=== PATIENT | female | born 1960 | race African-American/Black ===

== ENCOUNTER 2016-04-15 08:12 | Emergency (ER) | payer OTHER ==
[2016-04-15] MEDS ORDERED: MORPHINE SULFATE 10 MG/ML INJ IM ONE (08:39)
[2016-04-15] MEDS ORDERED: DIAZEPAM INJ 10 MG/2 ML DISP.SYRIN IM ONE (08:40)
--- NOTE | 2016-04-15 08:45 | ER Document Report ---
ED General - General Chief Complaint: Arm Pain Stated Complaint: RIGHT ARM PAIN Mode of Arrival: Ambulatory Information source: Patient Notes: 48-year-old female presents with complaints of right shoulder and neck pain. She notes symptoms of been ongoing for 1 week, worsens when she attempts to move her shoulder. Denies any trauma denies any heavy lifting. Patient notes she has had issues with her neck muscles and arm before TRAVEL OUTSIDE OF THE [place] IN LAST 30 DAYS: No - HPI Onset: Last week Onset/Duration: Persistent Quality of pain: Achy Severity: Moderate Pain Level: 2 Associated symptoms: Body/muscle aches Exacerbated by: Denies Relieved by: Denies Similar symptoms previously: Yes Recently seen / treated by doctor: No - Related Data Allergies/Adverse Reactions: aspirin [Aspirin] Allergy (Severe, Verified 04/15/16 08:13) n and v etodolac [From Lodine] Allergy (Severe, Verified 04/15/16 08:13) Hives oxycodone HCl [From Percocet] Allergy (Severe, Verified 04/15/16 08:13) itching simvastatin [Simvastatin] Allergy (Severe, Verified 04/15/16 08:13) cramping Sulfa (Sulfonamide Antibiotics) Allergy (Severe, Verified 04/15/16 08:13) pain sulfamethoxazole [From Septra] Allergy (Severe, Verified 04/15/16 08:13) pain triamterene [From Maxzide] Allergy (Severe, Verified 04/15/16 08:13) unsure trimethoprim [From Septra] Allergy (Severe, Verified 04/15/16 08:13) pain Past Medical History - Social History Smoking Status: Current Every Day Smoker Cigarette use (# per day): No Chew tobacco use (# tins/day): Yes Smoking Education Provided: No Frequency of alcohol use: Occasional Drug Abuse: None Family History: Reviewed & Not Pertinent Patient has suicidal ideation: No Patient has homicidal ideation: No - Past Medical History Cardiac Medical History: Reports: Hx Coronary Artery Disease, Hx Hypercholesterolemia - hx of, Hx Hypertension - on meds, Hx Peripheral Vascular Disease, Hx Heart Murmur Denies: Hx Atrial Fibrillation, Hx Congestive Heart Failure, Hx Heart Attack , Hx Pulmonary Embolism Pulmonary Medical History: Reports: Hx Asthma - on meds, Hx COPD - on meds, Hx Pneumonia - hx of, Hx Sleep Apnea - cpap Denies: Hx Bronchitis, Hx Respiratory Failure, Hx Tuberculosis Neurological Medical History: Denies: Hx Cerebrovascular Accident, Hx Seizures Endocrine Medical History: Reports: Hx Diabetes Mellitus Type 2, Hx Hyperthyroidism - goiter. Denies: Hx Graves' Disease, Hx Hypothyroidism Renal/ Medical History: Denies: Hx End Stage Renal Disease, Hx Kidney Stones, Hx Ovarian Cysts, Hx Peritoneal Dialysis, Hx Pelvic Inflammatory Disease Malignancy Medical History: Denies: Hx Breast Cancer, Hx Cervical Cancer, Hx Lung Cancer, Hx Ovarian Cancer GI Medical History: Reports: Hx Gastroesophageal Reflux Disease - on meds. Denies: Hx Crohn's Disease, Hx Hiatal Hernia, Hx Irritable Bowel, Hx Liver Failure, Hx Ulcer Musculoskeltal Medical History: Reports Hx Arthritis - on meds, Denies Hx Fibromyalgia, Denies Hx Multiple Sclerosis, Denies Hx Muscular Dystrophy Psychiatric Medical History: Reports: Hx Depression Denies: Hx Bipolar Disorder, Hx Dementia, Hx Post Traumatic Stress Disorder, Hx Schizophrenia Traumatic Medical History: Reports: Hx Fractures Past Surgical History: Reports: Hx Hysterectomy, Hx Thyroid Surgery. Denies: Hx Appendectomy, Hx Bowel Surgery, Hx Section, Hx Cholecystectomy, Hx Colostomy, Hx Coronary Artery Bypass Graft, Hx Gastric Bypass Surgery, Hx Herniorrhaphy, Hx Mastectomy, Hx Pacemaker, Hx Tonsillectomy, Hx Tubal Ligation - Immunizations Hx Diphtheria, Pertussis, Tetanus Vaccination: Yes Hx Pneumococcal Vaccination: 03/28/10 Review of Systems - Review of Systems Notes: REVIEW OF SYSTEMS: CONSTITUTIONAL : Denies fever, chills, or sweats. Denies recent illness. EENT: Denies eye, ear, throat, or mouth pain or symptoms. Denies nasal or sinus congestion or discharge. Denies throat, tongue, or mouth swelling or difficulty swallowing. CARDIOVASCULAR: Denies chest pain. Denies palpitations or racing or irregular heart beat. Denies ankle edema. RESPIRATORY: Denies cough, cold, or chest congestion. Denies shortness of breath, difficulty breathing, or wheezing. GASTROINTESTINAL: Denies abdominal pain or distention. Denies nausea, vomiting , or diarrhea. Denies blood in vomitus, stools, or per rectum. Denies black, tarry stools. Denies constipation. GENITOURINARY: Denies difficulty urinating, painful urination, burning, frequency, blood in urine, or discharge. FEMALE GENITOURINARY: Denies vaginal bleeding, heavy or abnormal periods, irregular periods. Denies vaginal discharge or odor. MUSCULOSKELETAL: Admits to neck pain spasm SKIN: Denies rash, lesions or sores. HEMATOLOGIC : Denies easy bruising or bleeding. LYMPHATIC: Denies swollen, enlarged glands. NEUROLOGICAL: Denies confusion or altered mental status. Denies passing out or loss of consciousness. Denies dizziness or lightheadedness. Denies headache. Denies weakness or paralysis or loss of use of either side. Denies problems with gait or speech. Denies sensory loss, numbness, or tingling. Denies seizures. PSYCHIATRIC: Denies anxiety or stress. Denies depression, suicidal ideation, or homicidal ideation. ALL OTHER SYSTEMS REVIEWED AND NEGATIVE. Dictation was performed using [employer] voice recognition software PHYSICAL EXAMINATION: GENERAL: Well-appearing, well-nourished and in no acute distress. HEAD: Atraumatic, normocephalic. EYES: Pupils equal round and reactive to light, extraocular movements intact, conjunctiva are normal. ENT: Nares patent, oropharynx clear without exudates. Moist mucous membranes. NECK: Normal range of motion, supple without lymphadenopathy LUNGS: Breath sounds clear to auscultation bilaterally and equal. No wheezes rales or rhonchi. HEART: Regular rate and rhythm without murmurs ABDOMEN: Soft, nontender, nondistended abdomen. No guarding, no rebound. No masses appreciated. Female : deferred Musculoskeletal: Limited range of motion of the right arm with tenderness at the trapezius no neurological deficits noted good strength NEUROLOGICAL: Cranial nerves grossly intact. Normal speech, normal gait. Normal sensory, motor exams PSYCH: Normal mood, normal affect. SKIN: Warm, Dry, normal turgor, no rashes or lesions noted. Physical Exam - Vital signs Vitals: Temp Pulse Resp BP Pulse Ox 97.9 F 80 20 138/75 H 98 04/15/16 08:18 04/15/16 08:18 04/15/16 08:18 04/15/16 08:18 04/15/16 08:18 Course - Re-evaluation Re-evalutation: 04/15/16 08:43 Patient will be given pain control, I do not believe any imaging is required as this is not appear to be causing any life-threatening issues. After performing a Medical Screening Examination, I estimate there is LOW risk for INTRACRANIAL HEMORRHAGE, UNSTABLE SPINE FRACTURE, CENTRAL CORD SYNDROME, CAUDA EQUINA, THORACIC AORTIC DISSECTION, PNEUMOTHORAX, PERFORATED BOWEL, RUPTURED ABDOMINAL AORTIC ANEURYSM, ACUTE TENDON RUPTURE, COMPARTMENT SYNDROME, or OPEN FRACTURE, thus I consider the discharge disposition reasonable. Also, there is no evidence or peritonitis, sepsis, or toxicity. The patient and I have discussed the diagnosis and risks, and we agree with discharging home to follow-up with their primary doctor with the understanding that symptoms and presentations can change. We also discussed returning to the Emergency Department immediately if new or worsening symptoms occur. We have discussed the symptoms which are most concerning (e.g., bloody stool, fever, changing or worsening pain, vomiting) that necessitate immediate return. - Vital Signs Vital signs: Temp Pulse Resp BP Pulse Ox 97.9 F 80 20 138/75 H 98 04/15/16 08:18 04/15/16 08:18 04/15/16 08:18 04/15/16 08:18 04/15/16 08:18 Discharge - Discharge Clinical Impression: Trapezius muscle spasm Arm pain Qualifiers: Laterality: right Qualified Code(s): M79.601 - Pain in right arm Condition: Stable Disposition: HOME, SELF-CARE Instructions: Muscle Strain ([facility]) Additional Instructions: Follow up with your physician tomorrow for further care or return to the ED IMMEDIATELY if symptoms worsen or new concerns occur Prescriptions: Diazepam [Valium 5 mg Tablet] 5 mg PO QIDP PRN #15 tablet PRN Reason: Hydrocodone/Acetaminophen [[place] 5-325 mg Tablet] 1 tab PO Q6 #10 tablet
[2016-04-15 09:39] VITALS: BP 136/88
== END 2016-04-15 09:56 | disposition home or self-care (01) ==
LOC: ER 08:12
DX: M62.830 Muscle spasm of back (principal); M79.601 Pain in right arm; F17.210 Nicotine dependence, cigarettes, uncomplicated
CPT/HCPCS: 99283; 96372; J3360; J2270

== ENCOUNTER → 2016-05-10 | Outpatient (CLI) | payer OTHER | LOC: OD 12:18 | DX: M25.531 Pain in right wrist (principal) ==

== ENCOUNTER → 2016-05-20 | Outpatient (CLI) | payer OTHER ==
[2016-05-20 10:23] LABS: ALANINE AMINOTRANSFERASE 23 U/L (9-52); ALBUMIN 3.6 g/dL (3.5-5.0); ALKALINE PHOSPHATASE 95 U/L (38-126); ANION GAP 16 (5-19); ASPARTATE AMINO TRANSFERASE 21 U/L (14-36); BILIRUBIN,TOTAL 0.6 mg/dL (0.2-1.3); BLOOD UREA NITROGEN 27 mg/dL (7-20); CALCIUM 8.8 mg/dL (8.4-10.2); CARBON DIOXIDE 29 mmol/L (22-30); CHLORIDE 98 mmol/L (98-107); CREATININE RESULT 0.93 mg/dL (0.52-1.25); GLUCOSE 249 mg/dL (75-110); MAGNESIUM 1.3 mg/dL (1.6-2.3); PHOSPHORUS 5.6 mg/dL (2.5-4.5); POTASSIUM 4.2 mmol/L (3.6-5.0); SODIUM 143.3 mmol/L (137-145); TOTAL PROTEIN 8.3 g/dL (6.3-8.2)
== END ==
LOC: CCC 08:51
DX: E20.9 Hypoparathyroidism, unspecified (principal); E03.9 Hypothyroidism, unspecified; E11.9 Type 2 diabetes mellitus without complications; I10 Essential (primary) hypertension
CPT/HCPCS: 36415; 80053; 82306; 83036; 83735; 84100; 84443

== ENCOUNTER → 2016-05-20 | Outpatient (CLI) | payer OTHER | LOC: OD 09:24 | DX: M25.511 Pain in right shoulder (principal) ==

== ENCOUNTER → 2016-05-31 | Outpatient (CLI) | payer OTHER ==
[2016-05-31 11:29] LABS: ANION GAP 13 (5-19); BLOOD UREA NITROGEN 25 mg/dL (7-20); CALCIUM 10.6 mg/dL (8.4-10.2); CARBON DIOXIDE 31 mmol/L (22-30); CHLORIDE 100 mmol/L (98-107); CREATININE RESULT 1.03 mg/dL (0.52-1.25); GLUCOSE 91 mg/dL (75-110); MAGNESIUM 1.8 mg/dL (1.6-2.3); PHOSPHORUS 4.3 mg/dL (2.5-4.5); POTASSIUM 4.6 mmol/L (3.6-5.0); SODIUM 144.3 mmol/L (137-145)
[2016-05-31 11:36] LABS: URINE CREATININE 140.2 mg/dL (15-278)
[2016-06-01 14:08] LABS: CALCIUM RANDOM URINE 31.7 mg/dL (Not Estab.)
== END ==
LOC: CCC 09:32
DX: E20.9 Hypoparathyroidism, unspecified (principal)
CPT/HCPCS: 36415; 80048; 82340; 82570; 83735; 84100

== ENCOUNTER → 2016-07-23 | Outpatient (CLI) | payer OTHER ==
[2016-07-23 10:08] LABS: ANION GAP 18 (5-19); BLOOD UREA NITROGEN 25 mg/dL (7-20); CALCIUM 8.5 mg/dL (8.4-10.2); CARBON DIOXIDE 27 mmol/L (22-30); CHLORIDE 103 mmol/L (98-107); CREATININE RESULT 0.89 mg/dL (0.52-1.25); GLUCOSE 199 mg/dL (75-110); PHOSPHORUS 5.2 mg/dL (2.5-4.5); POTASSIUM 4.3 mmol/L (3.6-5.0); SODIUM 147.5 mmol/L (137-145)
[2016-07-23 10:29] LABS: MAGNESIUM 1.3 mg/dL (1.6-2.3)
== END ==
LOC: CCC 08:39
DX: E20.9 Hypoparathyroidism, unspecified (principal)
CPT/HCPCS: 36415; 80048; 83036; 83735; 84100

== ENCOUNTER → 2016-10-07 | Outpatient (CLI) | payer OTHER ==
--- NOTE | 2016-10-07 15:03 | WOMENS IMAGING REPORT ---
EXAM DESCRIPTION: BILAT SCREENING MAMMO W/CAD COMPLETED DATE/TIME: 10/07/2016 1:38 pm REASON FOR STUDY: ROUTINE SCREENING; Z12.31 Z12.31 ENCNTR SCREEN MAMMOGRAM FOR MALIGNANT NEOPLASM O F AYESHA COMPARISON: Annual priors dating back to August 2010. TECHNIQUE: Standard craniocaudal and mediolateral oblique views of each breast recorded using digita l acquisition. LIMITATIONS: None. FINDINGS: No masses, calcifications or architectural distortion. No areas of suspicion. Read with the assistance of CAD. .[facility] - R2 Cenova Version 1.3 .[facility] Imaging - R2 Cenova Version 1.3 .[facility] - R2 Cenova Version 2.4 .[facility] - R2 Cenova Version 2.4 .[facility] - R2 Janitorial Tech Version 9.2 IMPRESSION: NORMAL MAMMOGRAM. BIRADS 1. BREAST DENSITY: a. The breasts are almost entirely fatty. BIRAD: 1 NEGATIVE RECOMMENDATION: ROUTINE SCREENING COMMENT: The patient has been notified of the results by letter per SA requirements. Additional no tification policies are in place for contacting patient with suspicious or incomplete findings. Quality ID #[id number]: The [employer] recommends an annual screening mammogram for women aged 40 years or over. This facility utilizes a reminder system to ensure that all patients receive reminder letters, and/or direct phone calls for appointments. This includes reminders for routine scr eening mammograms, diagnostic mammograms, or other Breast Imaging Interventions when appropriate. Th is patient will be placed in the appropriate reminder system. The [employer] (ACR) has developed recommendations for screening MRI of the breast s in certain patient populations, to be used in conjunction with mammography. Breast MRI surveillanc e may be appropriate for women with more than 20% lifetime risk of developing breast cancer as deter mined by genetic testing, significant family history of the disease, or history of mantle radiation f or Hodgkins Disease. ACR Practice Guidelines 2008. TECHNICAL DOCUMENTATION: FINDING NUMBER: (1) ASSESSMENT: (1) JOB ID: [id number] [employer]- All Rights Reserved
== END ==
LOC: WI 09:53
DX: Z12.31 Encounter for screening mammogram for malignant neoplasm of breast (principal)
CPT/HCPCS: 77067; G0202

== ENCOUNTER → 2016-12-14 | Outpatient (CLI) | payer OTHER ==
[2016-12-14 10:12] LABS: ABSOLUTE EOSINOPHILS # (AUTO) 0.1 10^3/uL (0.0-0.6); ABSOLUTE LYMPHOCYTES (AUTO) 2.7 10^3/uL (0.5-4.7); ABSOLUTE MONOCYTES (AUTO) 0.7 10^3/uL (0.1-1.4); ABSOLUTE NEUT (AUTO) 5.1 10^3/uL (1.7-8.2); BASOPHILS % (AUTO) 0.4 % (0-2); HEMATOCRIT 36.8 % (36.0-47.0); HEMOGLOBIN 11.9 g/dL (12.0-15.5); HGB HCT DIFFERENCE -1.1; LYMPHOCYTES % (AUTO) 31.3 % (13-45); MEAN CORPUSCULAR HEMOGLOBIN 26.3 pg (27.0-33.4); MEAN CORPUSCULAR HGB CONC 32.4 g/dL (32.0-36.0); MEAN CORPUSCULAR VOLUME 81 fl (80-97); MONOCYTES % (AUTO) 7.8 % (3-13); RED BLOOD COUNT 4.54 10^6/uL (3.72-5.28); RED CELL DISTRIBUTION WIDTH 15.8 % (11.5-14.0); SEGMENTED NEUTROPHILS % (AUTO) 59.5 % (42-78); WHITE BLOOD COUNT 8.6 10^3/uL (4.0-10.5)
[2016-12-14 10:41] LABS: ALANINE AMINOTRANSFERASE 22 U/L (9-52); ALKALINE PHOSPHATASE 109 U/L (38-126); ANION GAP 14 (5-19); ASPARTATE AMINO TRANSFERASE 16 U/L (14-36); BILIRUBIN,DIRECT 0.4 mg/dL (0.0-0.4); BILIRUBIN,TOTAL 0.6 mg/dL (0.2-1.3); BLOOD UREA NITROGEN 23 mg/dL (7-20); CALCIUM 8.7 mg/dL (8.4-10.2); CARBON DIOXIDE 32 mmol/L (22-30); CHLORIDE 100 mmol/L (98-107); CREATININE RESULT 0.86 mg/dL (0.52-1.25); GLUCOSE 175 mg/dL (75-110); MAGNESIUM 1.4 mg/dL (1.6-2.3); PHOSPHORUS 5.3 mg/dL (2.5-4.5); POTASSIUM 4.2 mmol/L (3.6-5.0); SODIUM 145.8 mmol/L (137-145); TOTAL PROTEIN 8.1 g/dL (6.3-8.2)
[2016-12-15 07:08] LABS: VITAMIN D 25-HYDROXY 88.4 ng/mL (30.0-100.0)
== END ==
LOC: CCC 08:51
DX: E03.9 Hypothyroidism, unspecified (principal); E20.9 Hypoparathyroidism, unspecified
CPT/HCPCS: 36415; 80053; 82306; 83036; 83735; 83970; 84100; 84443; 85025

== ENCOUNTER → 2017-02-22 | Outpatient (CLI) | payer OTHER ==
[2017-02-22 09:48] LABS: ANION GAP 15 (5-19); BLOOD UREA NITROGEN 22 mg/dL (7-20); CALCIUM 8.1 mg/dL (8.4-10.2); CARBON DIOXIDE 31 mmol/L (22-30); CHLORIDE 100 mmol/L (98-107); CREATININE RESULT 0.79 mg/dL (0.52-1.25); GLUCOSE 167 mg/dL (75-110); PHOSPHORUS 5.6 mg/dL (2.5-4.5); POTASSIUM 4.6 mmol/L (3.6-5.0); SODIUM 145.6 mmol/L (137-145); URIC ACID 8.7 mg/dL (2.5-7.5)
[2017-02-22 10:04] LABS: MAGNESIUM 1.2 mg/dL (1.6-2.3)
== END ==
LOC: CCC 08:46
DX: E21.5 Disorder of parathyroid gland, unspecified (principal); E03.9 Hypothyroidism, unspecified; M10.00 Idiopathic gout, unspecified site; E10.8 Type 1 diabetes mellitus with unspecified complications
CPT/HCPCS: 36415; 80048; 83735; 84100; 84443; 84550

== ENCOUNTER → 2017-03-10 | Outpatient (CLI) | payer OTHER ==
[2017-03-10 09:56] LABS: CALCIUM 8.5 mg/dL (8.4-10.2); MAGNESIUM 1.4 mg/dL (1.6-2.3); PHOSPHORUS 5.4 mg/dL (2.5-4.5)
== END ==
LOC: CCC 08:14
DX: E20.8 Other hypoparathyroidism (principal)
CPT/HCPCS: 36415; 82310; 83735; 84100

== ENCOUNTER → 2017-04-06 | Outpatient (CLI) | payer OTHER ==
[2017-04-07 06:38] LABS: THYROXINE (T4) 6.8 ug/dL (4.5-12.0)
== END ==
LOC: CCC 09:09
DX: E03.9 Hypothyroidism, unspecified (principal); E10.8 Type 1 diabetes mellitus with unspecified complications
CPT/HCPCS: 36415; 83036; 84436; 84443; 84479

== ENCOUNTER → 2017-04-08 | Outpatient (CLI) | payer BC ==
[2017-04-08 11:25] LABS: ANION GAP 16 (5-19); BLOOD UREA NITROGEN 20 mg/dL (7-20); CALCIUM 9.3 mg/dL (8.4-10.2); CARBON DIOXIDE 29 mmol/L (22-30); CHLORIDE 100 mmol/L (98-107); GLUCOSE 149 mg/dL (75-110); POTASSIUM 4.2 mmol/L (3.6-5.0); SODIUM 144.9 mmol/L (137-145); URIC ACID 9.4 mg/dL (2.5-7.5)
== END ==
LOC: OD 10:17
PROVIDERS: ATTEND Internal Medicine
DX: M10.9 Gout, unspecified (principal); I10 Essential (primary) hypertension; E11.9 Type 2 diabetes mellitus without complications; Z79.899 Other long term (current) drug therapy
CPT/HCPCS: 36415; 80048; 84550

== ENCOUNTER → 2017-10-14 | Outpatient (CLI) | payer BC ==
--- NOTE | 2017-10-14 18:05 | WOMENS IMAGING REPORT ---
EXAM DESCRIPTION: BILAT SCREENING MAMMO W/CAD COMPLETED DATE/TIME: 10/14/2017 9:34 am REASON FOR STUDY: SCREENING MAMMO Z12.31 ENCNTR SCREEN MAMMOGRAM FOR MALIGNANT NEOPLASM OF AYESHA COMPARISON: Multiple since 2010 TECHNIQUE: Standard craniocaudal and mediolateral oblique views of each breast recorded using digita l acquisition. LIMITATIONS: None. FINDINGS: No masses, calcifications or architectural distortion. No areas of suspicion. Read with the assistance of CAD. .[facility] - R2 Cenova Version 1.3 .[facility] Imaging - R2 Cenova Version 1.3 .[facility] Imaging - R2 Cenova Version 2.4 .[facility] - R2 Cenova Version 2.4 .[facility] - R2 Transmission Systems Operator Version 9.2 IMPRESSION: NORMAL MAMMOGRAM. BIRADS 1. BREAST DENSITY: b. There are scattered areas of fibroglandular density. BIRAD: 1 NEGATIVE RECOMMENDATION: ROUTINE SCREENING Please continue yearly bilateral screening mammography/tomosynthesis in September 2018 COMMENT: The patient has been notified of the results by letter per SA requirements. Additional no tification policies are in place for contacting patient with suspicious or incomplete findings. Quality ID #225: The [employer] [place] recommends an annual screening mammogram for women aged 40 years or over. This facility utilizes a reminder system to ensure that all patients receive reminder letters, and/or direct phone calls for appointments. This includes reminders for routine scr eening mammograms, diagnostic mammograms, or other Breast Imaging Interventions when appropriate. Th is patient will be placed in the appropriate reminder system. The [employer] [place] [employer] (ACR) has developed recommendations for screening MRI of the breast s in certain patient populations, to be used in conjunction with mammography. Breast MRI surveillanc e may be appropriate for women with more than 20% lifetime risk of developing breast cancer as deter mined by genetic testing, significant family history of the disease, or history of mantle radiation f or Hodgkins Disease. ACR Practice Guidelines 2008. TECHNICAL DOCUMENTATION: FINDING NUMBER: (1) ASSESSMENT: (1) JOB ID: [id number] [employer]- All Rights Reserved Reading location - IP/workstation name: [email or web address]
== END ==
LOC: WI 09:10
PROVIDERS: ATTEND Internal Medicine
DX: Z12.31 Encounter for screening mammogram for malignant neoplasm of breast (principal)
CPT/HCPCS: 77067

== ENCOUNTER → 2017-10-14 | Outpatient (CLI) | payer BC ==
--- NOTE | 2017-10-14 11:23 | RADIOLOGY REPORT (SQ) ---
EXAM DESCRIPTION: RIBS RIGHT W/O PA CHEST; CHEST PA/LATERAL COMPLETED DATE/TIME: 10/14/2017 10:35 am REASON FOR STUDY: RT POST LOWER RIB CAGE PAIN X 3 MONTHS NO TRAUMA; H/O BRONCHIAL ASTHMA J45.909 UN SPECIFIED ASTHMA, UNCOMPLICATED R52 PAIN, UNSPECIFIED COMPARISON: Chest and rib detail films 12/16/2015 TECHNIQUE: Frontal view of the chest and additional views of the right ribs acquired. NUMBER OF VIEWS: Two-view chest Right rib detail four views LIMITATIONS: None. FINDINGS: PA and LATERAL CXR: No pneumothorax. No pleural effusion. No atelectasis or infiltrates. Cardiac silhouette size, camryn unremarkable. Mild thoracic spondylotic change. RIBS: No acute displaced rib fractures. No lytic or blastic lesions. Minimal bony callus along the right anterior 8th rib, question healing subacute rib fracture. OTHER: No other significant finding. IMPRESSION: No acute cardiopulmonary changes Minimal bony callus along the right anterior 8th rib, question healing subacute rib fracture. COMMENT: SITE OF TRAUMA/COMPLAINT MARKED/STAMP COMPLETED: Yes TECHNICAL DOCUMENTATION: JOB ID: [id number] [employer]- All Rights Reserved Reading location - IP/workstation name: [email or web address]
--- NOTE | 2017-10-14 11:23 | RADIOLOGY REPORT (SQ) ---
EXAM DESCRIPTION: RIBS RIGHT W/O PA CHEST; CHEST PA/LATERAL COMPLETED DATE/TIME: 10/14/2017 10:35 am REASON FOR STUDY: RT POST LOWER RIB CAGE PAIN X 3 MONTHS NO TRAUMA; H/O BRONCHIAL ASTHMA J45.909 UN SPECIFIED ASTHMA, UNCOMPLICATED R52 PAIN, UNSPECIFIED COMPARISON: Chest and rib detail films 12/16/2015 TECHNIQUE: Frontal view of the chest and additional views of the right ribs acquired. NUMBER OF VIEWS: Two-view chest Right rib detail four views LIMITATIONS: None. FINDINGS: PA and LATERAL CXR: No pneumothorax. No pleural effusion. No atelectasis or infiltrates. Cardiac silhouette size, camryn unremarkable. Mild thoracic spondylotic change. RIBS: No acute displaced rib fractures. No lytic or blastic lesions. Minimal bony callus along the right anterior 8th rib, question healing subacute rib fracture. OTHER: No other significant finding. IMPRESSION: No acute cardiopulmonary changes Minimal bony callus along the right anterior 8th rib, question healing subacute rib fracture. COMMENT: SITE OF TRAUMA/COMPLAINT MARKED/STAMP COMPLETED: Yes TECHNICAL DOCUMENTATION: JOB ID: [id number] [employer]- All Rights Reserved Reading location - IP/workstation name: [email or web address]
== END ==
LOC: OD 10:09
PROVIDERS: ATTEND Internal Medicine
DX: J45.909 Unspecified asthma, uncomplicated (principal); R07.81 Pleurodynia
CPT/HCPCS: 71046

== ENCOUNTER → 2017-10-20 | Outpatient (CLI) | payer BC ==
[2017-10-20 09:44] LABS: ALBUMIN 3.8 g/dL (3.5-5.0); ANION GAP 13 (5-19); BLOOD UREA NITROGEN 13 mg/dL (7-20); CALCIUM 7.9 mg/dL (8.4-10.2); CARBON DIOXIDE 33 mmol/L (22-30); CHLORIDE 101 mmol/L (98-107); GLUCOSE 180 mg/dL (75-110); PHOSPHORUS 4.9 mg/dL (2.5-4.5); POTASSIUM 4.1 mmol/L (3.6-5.0); SODIUM 147.2 mmol/L (137-145)
== END ==
LOC: OD 08:44
PROVIDERS: ATTEND Internal Medicine Nephrology
DX: E83.51 Hypocalcemia (principal); E83.42 Hypomagnesemia; E83.30 Disorder of phosphorus metabolism, unspecified
CPT/HCPCS: 36415; 80048; 82040; 83735; 84100

== ENCOUNTER → 2017-12-22 | Outpatient (CLI) | payer BC ==
[2017-12-22 09:48] LABS: ANION GAP 10 (5-19); BLOOD UREA NITROGEN 29 mg/dL (7-20); CALCIUM 9.1 mg/dL (8.4-10.2); CARBON DIOXIDE 33 mmol/L (22-30); CHLORIDE 99 mmol/L (98-107); GLUCOSE 165 mg/dL (75-110); PHOSPHORUS 5.6 mg/dL (2.5-4.5); POTASSIUM 4.6 mmol/L (3.6-5.0); SODIUM 141.8 mmol/L (137-145)
== END ==
LOC: OD 08:38
PROVIDERS: ATTEND Internal Medicine Nephrology
DX: E83.51 Hypocalcemia (principal); E83.42 Hypomagnesemia; E83.30 Disorder of phosphorus metabolism, unspecified
CPT/HCPCS: 36415; 80048; 83735; 84100

== ENCOUNTER → 2018-01-16 | Outpatient (CLI) | payer BC, OTHER ==
[2018-01-16 09:29] LABS: ANION GAP 11 (5-19); BLOOD UREA NITROGEN 23 mg/dL (7-20); CALCIUM 7.9 mg/dL (8.4-10.2); CARBON DIOXIDE 30 mmol/L (22-30); CHLORIDE 104 mmol/L (98-107); GLUCOSE 157 mg/dL (75-110); PHOSPHORUS 5.2 mg/dL (2.5-4.5); POTASSIUM 4.2 mmol/L (3.6-5.0)
== END ==
LOC: OD 08:15
PROVIDERS: ATTEND Internal Medicine Nephrology
DX: N17.9 Acute kidney failure, unspecified (principal); E83.51 Hypocalcemia; E83.42 Hypomagnesemia; E83.30 Disorder of phosphorus metabolism, unspecified
CPT/HCPCS: 36415; 80048; 83735; 84100

== ENCOUNTER → 2018-04-10 | Outpatient (CLI) | payer OTHER ==
[2018-04-10 09:38] LABS: ALBUMIN 4.4 g/dL (3.5-5.0); ANION GAP 12 (5-19); BLOOD UREA NITROGEN 20 mg/dL (7-20); CALCIUM 8.3 mg/dL (8.4-10.2); CARBON DIOXIDE 32 mmol/L (22-30); CHLORIDE 99 mmol/L (98-107); GLUCOSE 205 mg/dL (75-110); PHOSPHORUS 5.1 mg/dL (2.5-4.5); POTASSIUM 4.4 mmol/L (3.6-5.0); SODIUM 143.4 mmol/L (137-145)
== END ==
LOC: OD 08:11
PROVIDERS: ATTEND Internal Medicine Nephrology
DX: N18.3 Chronic kidney disease, stage 3 (moderate) (principal); E83.42 Hypomagnesemia; E83.30 Disorder of phosphorus metabolism, unspecified
CPT/HCPCS: 36415; 80048; 82040; 83735; 84100

== ENCOUNTER 2018-07-24 13:11 | Inpatient (IN) | payer OTHER ==
[2018-07-24] MEDS ORDERED: MAGNESIUM SULFATE/D5W 0 GM/0 ML RTUPB IV ONE (13:24)
[2018-07-24] MEDS ORDERED: IPRATROPIUM/ALBUTEROL 0.5-2.5 MG/3 ML AMPUL NEB ONE ×5 (13:24→13:29)
[2018-07-24] MEDS ORDERED: METHYLPREDNISOLONE INJ 125 MG/2 ML SDV IV ONE (13:28)
[2018-07-24 13:48] LABS: VENOUS BLOOD BASE EXCESS 2.5 mmol/L; VENOUS BLOOD HCO3 29.1 mmol/L (20-32); VENOUS BLOOD PH 7.35 (7.30-7.42)
[2018-07-24 13:51] LABS: ABSOLUTE LYMPHOCYTES (AUTO) 1.4 10^3/uL (0.5-4.7); ABSOLUTE MONOCYTES (AUTO) 0.8 10^3/uL (0.1-1.4); ABSOLUTE NEUT (AUTO) 3.4 10^3/uL (1.7-8.2); BASOPHILS % (AUTO) 0.6 % (0-2); EOSINOPHILS % (AUTO) 0.2 % (0-6); HEMATOCRIT 36.7 % (36.0-47.0); HEMOGLOBIN 11.7 g/dL (12.0-15.5); LYMPHOCYTES % (AUTO) 24.4 % (13-45); MEAN CORPUSCULAR HEMOGLOBIN 25.9 pg (27.0-33.4); MEAN CORPUSCULAR HGB CONC 31.9 g/dL (32.0-36.0); MEAN CORPUSCULAR VOLUME 81 fl (80-97); MONOCYTES % (AUTO) 14.2 % (3-13); PLATELET COUNT 232 10^3/uL (150-450); RED CELL DISTRIBUTION WIDTH 15.9 % (11.5-14.0); SEGMENTED NEUTROPHILS % (AUTO) 60.6 % (42-78); TOTAL CELLS COUNTED % (AUTO) 100 %; WHITE BLOOD COUNT 5.6 10^3/uL (4.0-10.5)
[2018-07-24 13:58] LABS: INTERNATIONAL RATION (INR) 0.96; PROTHROMBIN TIME 13.3 SEC (11.4-15.4)
[2018-07-24] MEDS ORDERED: LORAZEPAM INJ 2 MG/1 ML VIAL IV ONE (14:07)
[2018-07-24 14:12] LABS: ALANINE AMINOTRANSFERASE 58 U/L (9-52); ALBUMIN 4.1 g/dL (3.5-5.0); ALKALINE PHOSPHATASE 115 U/L (38-126); ANION GAP 18 (5-19); ASPARTATE AMINO TRANSFERASE 58 U/L (14-36); BILIRUBIN,DIRECT 0.4 mg/dL (0.0-0.4); BILIRUBIN,TOTAL 0.7 mg/dL (0.2-1.3); BLOOD UREA NITROGEN 22 mg/dL (7-20); CALCIUM 7.3 mg/dL (8.4-10.2); CARBON DIOXIDE 27 mmol/L (22-30); CHLORIDE 101 mmol/L (98-107); GLUCOSE 206 mg/dL (75-110); POTASSIUM 3.6 mmol/L (3.6-5.0); TOTAL PROTEIN 8.5 g/dL (6.3-8.2)
--- NOTE | 2018-07-24 14:12 | RADIOLOGY REPORT (SQ) ---
EXAM DESCRIPTION: CHEST SINGLE VIEW COMPLETED DATE/TIME: 07/24/2018 1:49 pm REASON FOR STUDY: cough, wheeze, SOB COMPARISON: 01/26/2016 EXAM PARAMETERS: NUMBER OF VIEWS: One view. TECHNIQUE: Single frontal radiographic view of the chest acquired. RADIATION DOSE: NA LIMITATIONS: None. FINDINGS: LUNGS AND PLEURA: No opacities, masses or pneumothorax. No pleural effusion. MEDIASTINUM AND HILAR STRUCTURES: No masses. Contour normal. HEART AND VASCULAR STRUCTURES: Heart size is borderline. No pulmonary edema. BONES: No acute findings. HARDWARE: None in the chest. OTHER: No other significant finding. IMPRESSION: Borderline cardiomegaly without pulmonary edema. TECHNICAL DOCUMENTATION: JOB ID: [id number] [employer]- All Rights Reserved Reading location - IP/workstation name: [email or web address]
--- NOTE | 2018-07-24 15:02 | ER Document Report ---
Entered by RAKEL AMEZQUITA SCRIBE 07/24/18 1417 Acting as scribe for:NIKHIL OH DO ED General - General Chief Complaint: Shortness Of Breath Stated Complaint: DIFFICULTY BREATHING Time Seen by Provider: 07/24/18 13:28 Primary Care Provider: BISHOP WILEY MD [Primary Care Provider] - Follow up as needed Mode of Arrival: Ambulatory Information source: Patient Notes: Patient is a 58 year old female with asthma, CAD, hypertension, COPD presents to the emergency department via EMS complaining of shortness of breath onset 1 week ago. Patient states she has had increasing shortness of breath that significantly worsened today. She also complains of a productive cough with white sputum, subjective fevers and anterior chest pain underneath her breasts bilaterally. Patient states she used to be on oxygen 3 years ago and was recently on CPAP. Patient states she has chronic pain which she occasionally smokes marijuana for. TRAVEL OUTSIDE OF THE [place] IN LAST 30 DAYS: No - Related Data Allergies/Adverse Reactions: aspirin [Aspirin] Allergy (Severe, Verified 07/24/18 13:16) n and v etodolac [From Lodine] Allergy (Severe, Verified 07/24/18 13:16) Hives oxycodone HCl [From Percocet] Allergy (Severe, Verified 07/24/18 13:16) itching simvastatin [Simvastatin] Allergy (Severe, Verified 07/24/18 13:16) cramping Sulfa (Sulfonamide Antibiotics) Allergy (Severe, Verified 07/24/18 13:16) pain sulfamethoxazole [From Septra] Allergy (Severe, Verified 07/24/18 13:16) pain triamterene [From Maxzide] Allergy (Severe, Verified 07/24/18 13:16) unsure trimethoprim [From Septra] Allergy (Severe, Verified 07/24/18 13:16) pain Past Medical History - General Information source: Patient - Social History Smoking Status: Current Every Day Smoker Cigarette use (# per day): Yes Chew tobacco use (# tins/day): No Smoking Education Provided: No Frequency of alcohol use: Occasional Drug Abuse: Marijuana Family History: Reviewed & Not Pertinent - Past Medical History Cardiac Medical History: Reports: Hx Coronary Artery Disease, Hx Hypercholesterolemia - hx of, Hx Hypertension - on meds, Hx Peripheral Vascular Disease, Hx Heart Murmur Pulmonary Medical History: Reports: Hx Asthma - on meds, Hx COPD - on meds, Hx Pneumonia - hx of, Hx Sleep Apnea - cpap Endocrine Medical History: Reports: Hx Diabetes Mellitus Type 2, Hx Hyperthyroidism - goiter GI Medical History: Reports: Hx Gastroesophageal Reflux Disease - on meds Musculoskeletal Medical History: Reports Hx Arthritis - on meds Psychiatric Medical History: Reports: Hx Depression Traumatic Medical History: Reports: Hx Fractures Past Surgical History: Reports: Hx Hysterectomy, Hx Thyroid Surgery. Denies: Hx Appendectomy, Hx Bowel Surgery, Hx Section, Hx Cholecystectomy, Hx Colostomy, Hx Coronary Artery Bypass Graft, Hx Gastric Bypass Surgery, Hx Herniorrhaphy, Hx Mastectomy, Hx Pacemaker, Hx Tonsillectomy, Hx Tubal Ligation - Immunizations Hx Diphtheria, Pertussis, Tetanus Vaccination: Yes Hx Pneumococcal Vaccination: 03/28/10 Review of Systems - Review of Systems Constitutional: No symptoms reported EENT: No symptoms reported Cardiovascular: See HPI, Chest pain Respiratory: See HPI, Cough, Short of breath Gastrointestinal: No symptoms reported Genitourinary: No symptoms reported Female Genitourinary: No symptoms reported Musculoskeletal: No symptoms reported Skin: No symptoms reported Hematologic/Lymphatic: No symptoms reported Neurological/Psychological: No symptoms reported -: Yes All other systems reviewed and negative Physical Exam - Vital signs Vitals: Temp Pulse Resp BP Pulse Ox 98.4 F 109 H 40 H 149/78 H 90 L 07/24/18 13:19 07/24/18 13:19 07/24/18 13:19 07/24/18 13:19 07/24/18 13:19 - Notes Notes: GENERAL: Alert, interacts well. Severe respiratory distress. HEAD: Normocephalic, atraumatic. EYES: Pupils equal, round, and reactive to light. Extraocular movements intact. ENT: Oral mucosa moist, tongue midline. NECK: Full range of motion. Supple. Trachea midline. LUNGS: Severe respiratory distress. Tachypneic, diffuse expiratory wheezes that can be hear without stethoscope. No inspiratory rales or rhonchi. 96% oxygen saturation rate on monitoring and evaluation advisor at bedside, good waveform, not hypoxic per my interpretation. HEART: Sinus tachycardia with a rate of 106 on bedside monitor per my interpretation. No murmurs, gallops, or rubs. ABDOMEN: Soft, morbidly obese. Non-distended. Bowel sounds present in all 4 quadrants. No guarding, rigidity, or rebound. EXTREMITIES: Moves all 4 extremities spontaneously. NEUROLOGICAL: Alert and oriented x3. Normal speech. PSYCH: Normal affect, normal mood. SKIN: Warm, dry, normal turgor. No rashes or lesions noted. Course - Re-evaluation Re-evalutation: 07/24/18 15:00 Patient arrived in severe respiratory distress, barely moving any air with si gnificant wheezing. Immediately placed on multiple breathing treatments and started on BiPAP, now significantly improved, has received steroids, no evidence of acute infection, consistent with COPD exacerbation, CBC does not show any leukocytosis but there is anemia with hemoglobin 11.7, coags normal, venous blood gas unremarkable, CMP shows elevated glucose at 206, lactic acid is normal, calcium is actually low at 7.3, chest x-ray shows no acute process. Patient did require a small amount of Ativan 0.25 mg IV because she became very anxious when the BiPAP increased her coughing. She is doing better now. Discussed the case with Dr. Martin who agrees to accept the patient to his service on the telemetry care unit. - Vital Signs Vital signs: Temp Pulse Resp BP Pulse Ox 98.4 F 109 H 24 H 159/95 H 98 07/24/18 13:19 07/24/18 13:19 07/24/18 14:17 07/24/18 14:17 07/24/18 14:17 - Laboratory Result Diagrams: 07/24/18 13:33 07/24/18 13:33 Laboratory results interpreted by me: 07/24/18 07/24/18 13:33 13:33 Hgb 11.7 L MCH 25.9 L MCHC 31.9 L RDW 15.9 H Monocytes % 14.2 H Sodium 146.0 H BUN 22 H Glucose 206 H Calcium 7.3 L AST 58 H ALT 58 H Total Protein 8.5 H - EKG Interpretation by Me Additional EKG results interpreted by me: 07/24/18 15:00 EKG shows sinus rhythm rate 98, borderline QT interval, normal axis, no ST segment elevations or depressions, there is generalized T wave flattening per my interpretation. Critical Care Note - Critical Care Note Total time excluding time spent on procedures (mins): 55 Discharge - Discharge Clinical Impression: Acute exacerbation of chronic obstructive pulmonary disease (COPD) Condition: Fair Disposition: ADMITTED INPATIENT Admitting Provider: Veronica (Hospitalist) Unit Admitted: Telemetry Referrals: BISHOP WILEY MD [Primary Care Provider] - Follow up as needed I personally performed the services described in the documentation, reviewed and edited the documentation which was dictated to the scribe in my presence, and it accurately records my words and actions.
[2018-07-24] MEDS ORDERED: GLUCAGON,HUMAN RECOMB 1 MG INJ IM PRN (15:58)
[2018-07-24] MEDS ORDERED: DEXTROSE 50%-WATER 25 GM/50 ML DISP.SYRIN IV PRN ×2 (15:58)
[2018-07-24] MEDS ORDERED: DEXTROSE 40% GEL 15 GM TUBE PO PRN ×2 (15:58)
--- NOTE | 2018-07-24 16:17 | PDOC H&P ---
History of Present Illness Admission Date/PCP: 07/24/18 15:20 BISHOP WILEY MD Patient complains of: SOB History of Present Illness: PORTER SCHROEDER is a 58 year old female with a PMH of COPD/asthma, ZULEIKA not compliant on CPAP, HTN, DM 2 and hypothyroidism who presented with increasing SOB and wheezing. is on bedside. Patient has been having worsening SOB and wheezing since . This is associated with moderately productive cough with whitish sputum. She complained of chills but not fever. In the ER, she was noted to be very tachypneic and had significant bilateral wheezing. She was placed on BIPAP. She was given IV steroids and breathing treatments which gave her relief. Past Medical History Cardiac Medical History: Reports: Coronary Artery Disease, Hyperlipidema - hx of, Hypertension - on meds, Peripheral Vascular Disease, Heart Murmur Denies: Atrial Fibrillation, Congestive Heart Failure, Myocardial Infarction, Pulmonary Embolism Pulmonary Medical History: Reports: Asthma - on meds, Chronic Obstructive Pulmonary Disease (COPD) - on meds, Pneumonia - hx of, Sleep Apnea - cpap Denies: Bronchitis, Respiratory Failure, Tuberculosis Neurological Medical History: Denies: Seizures Endocrine Medical History: Reports: Diabetes Mellitus Type 2, Hyperthyroidism - goiter Denies: Hypothyroidism Renal/ Medical History: Denies: End Stage Renal Disease Malignancy Medical History: Denies: Breast Cancer, Cervical Cancer, Lung Cancer, Ovarian Cancer GI Medical History: Reports: Gastroesophageal Reflux Disease - on meds Denies: Crohn's Disease, Hiatal Hernia Musculoskeltal Medical History: Reports: Arthritis - on meds Denies: Fibromyalgia Psychiatric Medical History: Reports: Depression Denies: Bipolar Disorder, Dementia, Post Traumatic Stress Disorder Hematology: Past Surgical History Past Surgical History: Reports: Hysterectomy Denies: Amputation, Appendectomy, Section, Cholecystectomy, Colostomy, Coronary Artery Bypass Graft, Gastric Bypass Surgery, Herniorrhaphy, Mastectomy, Pacemaker, Tonsillectomy, Tubal Ligation Social History Smoking Status: Current Every Day Smoker Frequency of Alcohol Use: Occasional Hx Recreational Drug Use: No Hx Prescription Drug Abuse: Yes Family History Family History: Reviewed & Not Pertinent Parental Family History Reviewed: Yes - no premature CAD Children Family History Reviewed: No Sibling(s) Family History Reviewed.: No Medication/Allergy Allergies/Adverse Reactions: aspirin [Aspirin] Allergy (Severe, Verified 07/24/18 13:16) n and v etodolac [From Lodine] Allergy (Severe, Verified 07/24/18 13:16) Hives oxycodone HCl [From Percocet] Allergy (Severe, Verified 07/24/18 13:16) itching simvastatin [Simvastatin] Allergy (Severe, Verified 07/24/18 13:16) cramping Sulfa (Sulfonamide Antibiotics) Allergy (Severe, Verified 07/24/18 13:16) pain sulfamethoxazole [From Septra] Allergy (Severe, Verified 07/24/18 13:16) pain triamterene [From Maxzide] Allergy (Severe, Verified 07/24/18 13:16) unsure trimethoprim [From Septra] Allergy (Severe, Verified 07/24/18 13:16) pain Review of Systems All systems: reviewed and no additional remarkable complaints except as stated - as mentioned in HPI Physical Exam Vital Signs: Temp Pulse Resp BP Pulse Ox 98.4 F 109 H 20 158/87 H 98 07/24/18 13:19 07/24/18 13:19 07/24/18 15:01 07/24/18 15:01 07/24/18 15:01 Intake & Output 07/23/18 07/24/18 07/25/18 06:59 06:59 06:59 Weight 252 lb 3.341 oz General appearance: PRESENT: no acute distress, well-developed, well-nourished Head exam: PRESENT: atraumatic, normocephalic Eye exam: PRESENT: conjunctiva pink, EOMI, PERRLA. ABSENT: scleral icterus Ear exam: PRESENT: normal external ear exam Mouth exam: PRESENT: moist, tongue midline Neck exam: ABSENT: carotid bruit, JVD, lymphadenopathy, thyromegaly Respiratory exam: PRESENT: rhonchi, wheezes. ABSENT: rales Cardiovascular exam: PRESENT: RRR. ABSENT: diastolic murmur, rubs, systolic m urmur Pulses: PRESENT: normal dorsalis pedis pul GI/Abdominal exam: PRESENT: normal bowel sounds, soft. ABSENT: distended, guarding, mass, organolmegaly, rebound, tenderness Rectal exam: PRESENT: deferred Neurological exam: PRESENT: alert, awake, oriented to person, oriented to place, oriented to time, oriented to situation, CN II-XII grossly intact. ABSENT: motor sensory deficit Results Laboratory Results: 07/24/18 13:33 07/24/18 13:33 07/24/18 07/24/18 07/24/18 13:33 13:33 13:33 WBC 5.6 RBC 4.50 Hgb 11.7 L Hct 36.7 MCV 81 MCH 25.9 L MCHC 31.9 L RDW 15.9 H Plt Count 232 Seg Neutrophils % 60.6 Lymphocytes % 24.4 Monocytes % 14.2 H Eosinophils % 0.2 Basophils % 0.6 Absolute Neutrophils 3.4 Absolute Lymphocytes 1.4 Absolute Monocytes 0.8 Absolute Eosinophils 0.0 Absolute Basophils 0.0 VBG pH 7.35 VBG pCO2 54.0 VBG HCO3 29.1 VBG Base Excess 2.5 Sodium 146.0 H Potassium 3.6 Chloride 101 Carbon Dioxide 27 Anion Gap 18 BUN 22 H Creatinine 0.88 Est GFR ( Amer) > 60 Est GFR (Non-Af Amer) > 60 Glucose 206 H Lactic Acid Calcium 7.3 L Total Bilirubin 0.7 AST 58 H ALT 58 H Alkaline Phosphatase 115 Total Protein 8.5 H Albumin 4.1 07/24/18 14:10 WBC RBC Hgb Hct MCV MCH MCHC RDW Plt Count Seg Neutrophils % Lymphocytes % Monocytes % Eosinophils % Basophils % Absolute Neutrophils Absolute Lymphocytes Absolute Monocytes Absolute Eosinophils Absolute Basophils VBG pH VBG pCO2 VBG HCO3 VBG Base Excess Sodium Potassium Chloride Carbon Dioxide Anion Gap BUN Creatinine Est GFR ( Amer) Est GFR (Non-Af Amer) Glucose Lactic Acid 1.9 Calcium Total Bilirubin AST ALT Alkaline Phosphatase Total Protein Albumin Impressions: Chest X-Ray 07/24/18 13:28 IMPRESSION: Borderline cardiomegaly without pulmonary edema. Assessment and Plan - Diagnosis (1) Acute respiratory failure with hypoxia Is this a current diagnosis for this admission?: Yes Plan: Secondary to COPD exacerbation. Currently comfortable and saturating well on BIPAP. (2) Acute exacerbation of chronic obstructive pulmonary disease (COPD) Is this a current diagnosis for this admission?: Yes Plan: Continue IV steroids. Scheduled breathing treatments. Will also start azithromycin. (3) Hypertension Is this a current diagnosis for this admission?: Yes Plan: Will resume home meds once verified. (4) DM type 2 (diabetes mellitus, type 2) Is this a current diagnosis for this admission?: Yes Plan: Non-insulin dependent. Accuchecks ACHS. Start SSI. (5) ZULEIKA (obstructive sleep apnea) Is this a current diagnosis for this admission?: Yes Plan: Non compliant with CPAP. BIPAP at night. (6) Hypothyroidism Is this a current diagnosis for this admission?: Yes Plan: Resume synthroid once home meds are verified. - Time Time Spent with patient: 25-34 minutes
--- NOTE | 2018-07-24 16:19 | ADVANCED CARE ---
- Diagnosis (1) Acute respiratory failure with hypoxia Diagnosis Current: Yes (2) Acute exacerbation of chronic obstructive pulmonary disease (COPD) Diagnosis Current: Yes (3) DM type 2 (diabetes mellitus, type 2) Diagnosis Current: Yes (4) Hypothyroidism Diagnosis Current: Yes (5) Hypertension Diagnosis Current: Yes (6) ZULEIKA (obstructive sleep apnea) Diagnosis Current: Yes Resuscitation Status: Full Code Discussion: Discussed with patient and who is her surrogate decision maker. She express she is a Full Code and wants chest compressions, defibrillation and intubation if the need arises.
[2018-07-24] MEDS: IPRATROPIUM/ALBUTEROL 0.5-2.5 MG/3 ML AMPUL NEB SCH ×2 (16:47→19:31)
[2018-07-24] MEDS: INSULIN LISPRO 100 UNIT/ML 3 ML VIAL SUBCUT SCH (17:54)
[2018-07-24] MEDS: AZITHROMYCIN 250 MG TABLET PO SCH (17:54)
--- NOTE | 2018-07-24 19:30 | EKG REPORT ---
SEVERITY:- BORDERLINE ECG - SINUS RHYTHM BORDERLINE T ABNORMALITIES, ANTERIOR LEADS BORDERLINE PROLONGED QT INTERVAL : Confirmed by: Denia Patel 24-Jul-2018 19:29:27
[2018-07-24] MEDS: METHYLPREDNISOLONE INJ 40 MG/1 ML SDV IV SCH (23:20)
[2018-07-24] MEDS: HEPARIN SOD (PORCINE) 5,000 UNIT/ML 1 ML SYRINGE SUBCUT SCH (23:21)
[2018-07-25] MEDS: IPRATROPIUM/ALBUTEROL 0.5-2.5 MG/3 ML AMPUL NEB SCH ×6 (00:01→19:47)
[2018-07-25] MEDS: INSULIN LISPRO 100 UNIT/ML 3 ML VIAL SUBCUT SCH ×5 (00:27→21:33)
[2018-07-25] MEDS: METHYLPREDNISOLONE INJ 40 MG/1 ML SDV IV SCH ×3 (06:24→21:36)
[2018-07-25] MEDS ORDERED: ALBUTEROL SULFATE HFA (90 MCG/PUFF) 200 PUFF/8.5 GM MDI IH PRN (07:41)
[2018-07-25] MEDS ORDERED: IPRATROPIUM/ALBUTEROL 0.5-2.5 MG/3 ML AMPUL NEB PRN (07:41)
[2018-07-25] MEDS ORDERED: CALCIUM ACETATE 667 MG CAPSULE PO SCH (07:45)
[2018-07-25] MEDS ORDERED: MAGNESIUM OXIDE 400 MG TABLET PO SCH (07:45)
[2018-07-25] MEDS ORDERED: CALCIUM CARBONATE 500 MG TAB.CHEW PO SCH (07:45)
[2018-07-25] MEDS ORDERED: COLCHICINE PO SCH (10:00)
[2018-07-25] MEDS ORDERED: PROBENECID PO SCH (10:00)
--- NOTE | 2018-07-25 10:37 | PDOC PROGRESS REPORT ---
Subjective Progress Note for:: 07/25/18 Subjective:: 58 year old female with a PMH of COPD/asthma, ZULEIKA not compliant on CPAP, HTN, DM 2 and hypothyroidism who presented with increasing SOB and wheezing. is on bedside. Patient has been having worsening SOB and wheezing since . This is associated with moderately productive cough with whitish sputum. She complained of chills but not fever. In the ER, she was noted to be very tachypneic and had significant bilateral wheezing. She was placed on BIPAP. She was given IV steroids and breathing treatments which gave her relief. 07/[id number]-gbvn-old obese female with history of asthma COPD admitted for acute on chronic respiratory failure secondary to COPD exacerbation. In the emergency room she is tachypneic and bilateral wheezing she was placed on BiPAP and a statin IV steroids and and breathing treatments patient is on BiPAP at the time of examination this morning and on examination bilateral extensive wheezing is present patient is in mild to moderate distress. Patient is complaining of anxiety and shaking she says she takes calcium supplementation for hypocalcemia at home. No acute events in the last 24 hours. Patient is afebrile. Temperature 98.1. Reason For Visit: ACUTE HYPOXIC RESPIRATORY FAILURE,COPD Physical Exam Vital Signs: Temp Pulse Resp BP Pulse Ox 98.4 F 99 22 H 137/75 H 98 07/25/18 07:57 07/25/18 07:57 07/25/18 10:16 07/25/18 07:57 07/25/18 10:16 Intake & Output 07/24/18 07/25/18 07/26/18 06:59 06:59 06:59 Output Total 326 Balance -326 Weight 117 kg General appearance: PRESENT: mild distress, morbidly obese Head exam: PRESENT: atraumatic Eye exam: PRESENT: PERRLA Teeth exam: PRESENT: poor dentation Neck exam: ABSENT: carotid bruit, JVD, lymphadenopathy, thyromegaly Respiratory exam: PRESENT: decreased breath sounds, wheezes Cardiovascular exam: PRESENT: tachycardia GI/Abdominal exam: PRESENT: normal bowel sounds, soft. ABSENT: distended, guarding, mass, organolmegaly, rebound, tenderness Rectal exam: PRESENT: deferred Extremities exam: PRESENT: full ROM. ABSENT: calf tenderness, clubbing, pedal edema Neurological exam: PRESENT: alert, awake, oriented to person, oriented to place, oriented to time, oriented to situation, CN II-XII grossly intact. ABSENT: motor sensory deficit Psychiatric exam: PRESENT: appropriate affect, normal mood. ABSENT: homicidal ideation, suicidal ideation Results Laboratory Results: 07/24/18 13:33 07/24/18 13:33 07/24/18 07/24/18 07/24/18 13:33 13:33 13:33 WBC 5.6 RBC 4.50 Hgb 11.7 L Hct 36.7 MCV 81 MCH 25.9 L MCHC 31.9 L RDW 15.9 H Plt Count 232 Seg Neutrophils % 60.6 Lymphocytes % 24.4 Monocytes % 14.2 H Eosinophils % 0.2 Basophils % 0.6 Absolute Neutrophils 3.4 Absolute Lymphocytes 1.4 Absolute Monocytes 0.8 Absolute Eosinophils 0.0 Absolute Basophils 0.0 VBG pH 7.35 VBG pCO2 54.0 VBG HCO3 29.1 VBG Base Excess 2.5 Sodium 146.0 H Potassium 3.6 Chloride 101 Carbon Dioxide 27 Anion Gap 18 BUN 22 H Creatinine 0.88 Est GFR ( Amer) > 60 Est GFR (Non-Af Amer) > 60 Glucose 206 H Lactic Acid Calcium 7.3 L Total Bilirubin 0.7 AST 58 H ALT 58 H Alkaline Phosphatase 115 Total Protein 8.5 H Albumin 4.1 07/24/18 14:10 WBC RBC Hgb Hct MCV MCH MCHC RDW Plt Count Seg Neutrophils % Lymphocytes % Monocytes % Eosinophils % Basophils % Absolute Neutrophils Absolute Lymphocytes Absolute Monocytes Absolute Eosinophils Absolute Basophils VBG pH VBG pCO2 VBG HCO3 VBG Base Excess Sodium Potassium Chloride Carbon Dioxide Anion Gap BUN Creatinine Est GFR ( Amer) Est GFR (Non-Af Amer) Glucose Lactic Acid 1.9 Calcium Total Bilirubin AST ALT Alkaline Phosphatase Total Protein Albumin Impressions: Chest X-Ray 07/24/18 13:28 IMPRESSION: Borderline cardiomegaly without pulmonary edema. Assessment and Plan - Diagnosis (1) Acute exacerbation of chronic obstructive pulmonary disease (COPD) Is this a current diagnosis for this admission?: Yes Plan: Continue IV steroids. Scheduled breathing treatments. Will also start azithromycin. 07/25/2018-patient is on IV Solu-Medrol 40 mg every 12 hours, on a scheduled breathing treatments, she is on azithromycin. Afebrile. Continued to have a wheezing on BiPAP this morning. Plan is to use the BiPAP on as needed basis and continue the breathing treatments continue the antibiotic therapy for today labs are requested for today and tomorrow. Chest x-ray is negative for acute pathology except for cardiomegaly. (2) Acute respiratory failure with hypoxia Is this a current diagnosis for this admission?: Yes Plan: Secondary to COPD exacerbation. Currently comfortable and saturating well on BIPAP. 07/25/2018-patient admitted for acute respiratory failure with hypoxia. Most likely secondary to COPD exacerbation. Patient is in mild distress this morning on BiPAP. Plan is to continue the present management on examination chest bilateral entry was decreased bilateral extensive wheezing present. (3) DM type 2 (diabetes mellitus, type 2) Is this a current diagnosis for this admission?: Yes Plan: Non-insulin dependent. Accuchecks ACHS. Start SSI. 07/25/2018-patient has history of type 2 diabetes mellitus. Presently on Accu- Cheks before meals and at bedtime. Today's blood sugar is 305. Plan to check hemoglobin A1c tomorrow and started on Lantus 10 units twice a day. dietary consult is going to be requested. (4) Hypertension Is this a current diagnosis for this admission?: Yes Plan: Will resume home meds once verified. 07/25/2018-patient is given history of hypertension and blood pressure this morning is 160/91. Plan is to resume the home medications. Home she is on spironolactone 25 mg p.o. daily, lisinopril 40 mg p.o. daily, metoprolol 50 mg p.o. every 12 hours, also on amlodipine 10 mg p.o. daily.. (5) Hypothyroidism Is this a current diagnosis for this admission?: Yes Plan: Resume synthroid once home meds are verified. (6) ZULEIKA (obstructive sleep apnea) Is this a current diagnosis for this admission?: Yes Plan: Non compliant with CPAP. BIPAP at night. 07/25/2018-patient is noncompliant with his CPAP machine at home. Presently on BiPAP on as-needed basis. (7) Morbid obesity with BMI of 45.0-49.9, adult Is this a current diagnosis for this admission?: Yes Plan: 07/25/2018-patient BMI is around 47. Diet exercise lifestyle modifications and weight loss discussed with the patient. Dietary consult was requested. - Time Time Spent with patient: 25-34 minutes Medications reviewed and adjusted accordingly: Yes Anticipated discharge: Home
[2018-07-25] MEDS: AMLODIPINE BESYLATE 10 MG TABLET PO SCH (11:11)
[2018-07-25] MEDS: SPIRONOLACTONE 25 MG TABLET PO SCH ×2 (11:12→11:57)
[2018-07-25] MEDS: ATORVASTATIN CALCIUM 40 MG TABLET PO SCH (11:12)
[2018-07-25] MEDS: AZITHROMYCIN 250 MG TABLET PO SCH (11:12)
[2018-07-25] MEDS: LISINOPRIL 10 MG TABLET PO SCH (11:14)
[2018-07-25] MEDS: MONTELUKAST SODIUM 10 MG TABLET PO SCH (11:15)
[2018-07-25] MEDS: METOPROLOL TARTRATE 50 MG TABLET PO SCH ×2 (11:15→21:35)
[2018-07-25] MEDS: FUROSEMIDE 20 MG TABLET PO SCH ×2 (11:15→11:56)
[2018-07-25] MEDS: DULOXETINE HCL 30 MG CAPSULE.DR PO SCH (11:16)
[2018-07-25] MEDS: HEPARIN SOD (PORCINE) 5,000 UNIT/ML 1 ML SYRINGE SUBCUT SCH ×2 (11:17→21:32)
[2018-07-25] MEDS: LEVOTHYROXINE SODIUM 0.15 MG TABLET PO SCH (11:19)
[2018-07-25] MEDS: FLUTICASONE/VILANTEROL 100-25 MCG/DOSE IH SCH (11:35)
[2018-07-25] MEDS: INSULIN GLARGINE,HUM.REC.ANLOG 1,000 UNIT/10 ML VIAL SUBCUT SCH ×2 (11:37→21:40)
[2018-07-25] MEDS: GABAPENTIN 300 MG CAPSULE PO SCH ×3 (11:56→21:35)
[2018-07-25] MEDS: CALCIUM ACETATE 667 MG CAPSULE PO SCH ×2 (12:03→17:06)
[2018-07-25 12:36] LABS: ABSOLUTE LYMPHOCYTES (AUTO) 0.8 10^3/uL (0.5-4.7); ABSOLUTE MONOCYTES (AUTO) 0.4 10^3/uL (0.1-1.4); ABSOLUTE NEUT (AUTO) 3.7 10^3/uL (1.7-8.2); BASOPHILS % (AUTO) 0.1 % (0-2); HEMATOCRIT 33.8 % (36.0-47.0); HEMOGLOBIN 10.7 g/dL (12.0-15.5); LYMPHOCYTES % (AUTO) 16.2 % (13-45); MEAN CORPUSCULAR HEMOGLOBIN 25.9 pg (27.0-33.4); MEAN CORPUSCULAR HGB CONC 31.6 g/dL (32.0-36.0); MEAN CORPUSCULAR VOLUME 82 fl (80-97); MONOCYTES % (AUTO) 8.5 % (3-13); PLATELET COUNT 225 10^3/uL (150-450); RED BLOOD COUNT 4.13 10^6/uL (3.72-5.28); RED CELL DISTRIBUTION WIDTH 15.8 % (11.5-14.0); SEGMENTED NEUTROPHILS % (AUTO) 75.2 % (42-78); TOTAL CELLS COUNTED % (AUTO) 100 %; WHITE BLOOD COUNT 4.9 10^3/uL (4.0-10.5)
[2018-07-25 12:57] LABS: ALANINE AMINOTRANSFERASE 52 U/L (9-52); ALKALINE PHOSPHATASE 99 U/L (38-126); ANION GAP 15 (5-19); ASPARTATE AMINO TRANSFERASE 37 U/L (14-36); BILIRUBIN,DIRECT 0.4 mg/dL (0.0-0.4); BILIRUBIN,TOTAL 0.6 mg/dL (0.2-1.3); BLOOD UREA NITROGEN 33 mg/dL (7-20); CARBON DIOXIDE 29 mmol/L (22-30); CHLORIDE 98 mmol/L (98-107); GLUCOSE 338 mg/dL (75-110); POTASSIUM 4.2 mmol/L (3.6-5.0); SODIUM 142.1 mmol/L (137-145); TOTAL PROTEIN 8.1 g/dL (6.3-8.2)
[2018-07-25] MEDS: CEFTRIAXONE 2 GM/D5W RTU 2 GM/50 ML RTUPB IV SCH (13:00)
[2018-07-25 15:03] LABS: APPEARANCE,URINE CLOUDY; BILIRUBIN,URINE NEGATIVE (NEGATIVE); GLUCOSE, URINE 50 mg/dL (NEGATIVE); KETONES,URINE NEGATIVE (NEGATIVE); LEUKOCYTE ESTERASE,URINE NEGATIVE (NEGATIVE); NITRITE,URINE NEGATIVE (NEGATIVE); PROTEIN,URINE 100 mg/dL (NEGATIVE); URINE SPECIFIC GRAVITY 1.021; UROBILINOGEN,URINE NEGATIVE mg/dL (<2.0)
[2018-07-25 15:04] LABS: COLOR,URINE YELLOW
[2018-07-25] MEDS: MAGNESIUM OXIDE 400 MG TABLET PO SCH ×2 (15:11→17:06)
[2018-07-25] MEDS: CALCIUM CARBONATE 500 MG TAB.CHEW PO SCH ×2 (15:12→17:06)
[2018-07-25] MEDS: POLYETHYLENE GLYCOL 3350 POWDER 17 GM/1 PACKET PO SCH (15:19)
[2018-07-25] MEDS: TRAMADOL HCL 50 MG TABLET PO PRN (21:41)
[2018-07-26] MEDS: IPRATROPIUM/ALBUTEROL 0.5-2.5 MG/3 ML AMPUL NEB SCH ×6 (00:15→19:51)
[2018-07-26] MEDS: GABAPENTIN 300 MG CAPSULE PO SCH ×3 (08:02→22:08)
[2018-07-26] MEDS: LEVOTHYROXINE SODIUM 0.15 MG TABLET PO SCH (08:03)
[2018-07-26] MEDS: CALCIUM ACETATE 667 MG CAPSULE PO SCH ×3 (08:08→16:50)
[2018-07-26] MEDS: TRAMADOL HCL 50 MG TABLET PO PRN ×2 (08:08→17:42)
[2018-07-26] MEDS: INSULIN LISPRO 100 UNIT/ML 3 ML VIAL SUBCUT SCH ×4 (08:08→22:10)
[2018-07-26 08:47] LABS: ABSOLUTE LYMPHOCYTES (AUTO) 1.2 10^3/uL (0.5-4.7); ABSOLUTE MONOCYTES (AUTO) 0.6 10^3/uL (0.1-1.4); ABSOLUTE NEUT (AUTO) 7.2 10^3/uL (1.7-8.2); BASOPHILS % (AUTO) 0.2 % (0-2); MEAN CORPUSCULAR HEMOGLOBIN 26.1 pg (27.0-33.4); MEAN CORPUSCULAR HGB CONC 31.4 g/dL (32.0-36.0); MEAN CORPUSCULAR VOLUME 83 fl (80-97); MONOCYTES % (AUTO) 6.9 % (3-13); PLATELET COUNT 266 10^3/uL (150-450); RED BLOOD COUNT 4.21 10^6/uL (3.72-5.28); SEGMENTED NEUTROPHILS % (AUTO) 79.9 % (42-78); TOTAL CELLS COUNTED % (AUTO) 100 %
[2018-07-26 09:09] LABS: ALANINE AMINOTRANSFERASE 53 U/L (9-52); ALBUMIN 3.9 g/dL (3.5-5.0); ALKALINE PHOSPHATASE 88 U/L (38-126); ANION GAP 15 (5-19); ASPARTATE AMINO TRANSFERASE 32 U/L (14-36); BILIRUBIN,DIRECT 0.4 mg/dL (0.0-0.4); BILIRUBIN,TOTAL 0.4 mg/dL (0.2-1.3); BLOOD UREA NITROGEN 45 mg/dL (7-20); CALCIUM 7.2 mg/dL (8.4-10.2); CARBON DIOXIDE 31 mmol/L (22-30); CHLORIDE 97 mmol/L (98-107); CHOLESTEROL 137.74 mg/dL (0-200); GLUCOSE 288 mg/dL (75-110); POTASSIUM 4.7 mmol/L (3.6-5.0); TOTAL PROTEIN 7.9 g/dL (6.3-8.2); TRIGLYCERIDES 306 mg/dL (<150)
[2018-07-26 09:20] LABS: DIRECT LDL 91 mg/dL (<100)
[2018-07-26 09:25] LABS: VLDL CHOLESTEROL 61.2 mg/dL (10-31)
[2018-07-26] MEDS: POLYETHYLENE GLYCOL 3350 POWDER 17 GM/1 PACKET PO SCH (10:44)
[2018-07-26] MEDS: FUROSEMIDE 20 MG TABLET PO SCH (10:44)
[2018-07-26] MEDS: ATORVASTATIN CALCIUM 40 MG TABLET PO SCH (10:45)
[2018-07-26] MEDS: AZITHROMYCIN 250 MG TABLET PO SCH (10:45)
[2018-07-26] MEDS: CALCIUM CARBONATE 500 MG TAB.CHEW PO SCH ×3 (10:45→17:42)
[2018-07-26] MEDS: AMLODIPINE BESYLATE 10 MG TABLET PO SCH (10:45)
[2018-07-26] MEDS: MONTELUKAST SODIUM 10 MG TABLET PO SCH (10:46)
[2018-07-26] MEDS: HEPARIN SOD (PORCINE) 5,000 UNIT/ML 1 ML SYRINGE SUBCUT SCH ×2 (10:46→22:07)
[2018-07-26] MEDS: LISINOPRIL 10 MG TABLET PO SCH (10:46)
[2018-07-26] MEDS: MAGNESIUM OXIDE 400 MG TABLET PO SCH ×3 (10:46→17:42)
[2018-07-26] MEDS: METOPROLOL TARTRATE 50 MG TABLET PO SCH ×2 (10:46→22:08)
[2018-07-26] MEDS: SPIRONOLACTONE 25 MG TABLET PO SCH (10:46)
[2018-07-26] MEDS: DULOXETINE HCL 30 MG CAPSULE.DR PO SCH (10:46)
[2018-07-26] MEDS: FLUTICASONE/VILANTEROL 100-25 MCG/DOSE IH SCH (10:47)
[2018-07-26] MEDS: METHYLPREDNISOLONE INJ 40 MG/1 ML SDV IV SCH ×2 (10:47→22:08)
[2018-07-26] MEDS: ERGOCALCIFEROL (VITAMIN D2) 50000 UNIT (1.25 MG) CAPSULE PO SCH (10:49)
[2018-07-26] MEDS: INSULIN GLARGINE,HUM.REC.ANLOG 1,000 UNIT/10 ML VIAL SUBCUT SCH ×2 (11:07→22:14)
[2018-07-26] MEDS: CEFTRIAXONE 2 GM/D5W RTU 2 GM/50 ML RTUPB IV SCH (12:28)
--- NOTE | 2018-07-26 12:35 | PDOC PROGRESS REPORT ---
Subjective Progress Note for:: 07/26/18 Subjective:: 58 year old female with a PMH of COPD/asthma, ZULEIKA not compliant on CPAP, HTN, DM 2 and hypothyroidism who presented with increasing SOB and wheezing. is on bedside. Patient has been having worsening SOB and wheezing since . This is associated with moderately productive cough with whitish sputum. She complained of chills but not fever. In the ER, she was noted to be very tachypneic and had significant bilateral wheezing. She was placed on BIPAP. She was given IV steroids and breathing treatments which gave her relief. 07/25/[id number]-rlmi-old obese female with history of asthma COPD admitted for acute on chronic respiratory failure secondary to COPD exacerbation. In the emergency room she is tachypneic and bilateral wheezing she was placed on BiPAP and a statin IV steroids and and breathing treatments patient is on BiPAP at the time of examination this morning and on examination bilateral extensive wheezing is present patient is in mild to moderate distress. Patient is complaining of anxiety and shaking she says she takes calcium supplementation for hypocalcemia at home. No acute events in the last 24 hours. Patient is afebrile. Temperature 98.1. 07/26/2018-no acute events in the last 24 hours. Afebrile. Patient says she is feeling little bit better. Blood cultures positive for gram-positive cocci. Presently on azithromycin and Rocephin. Sugar this morning is 320 she is on IV Solu-Medrol 40 mg every 12 hours and on insulin sliding scale with Lantus 10 units twice a day. Lantus dose was increased to 15 units twice a day. pt using BiPAP on and off. Reason For Visit: ACUTE HYPOXIC RESPIRATORY FAILURE,COPD Physical Exam Vital Signs: Temp Pulse Resp BP Pulse Ox 98.2 F 71 16 136/73 H 97 07/26/18 08:00 07/26/18 08:00 07/26/18 08:00 07/26/18 08:00 07/26/18 08:00 Intake & Output 07/25/18 07/26/18 07/27/18 06:59 06:59 06:59 Intake Total 1110 Output Total 326 Balance -326 1110 Weight 117 kg 117 kg General appearance: PRESENT: mild distress, morbidly obese Head exam: PRESENT: atraumatic Eye exam: PRESENT: PERRLA Mouth exam: PRESENT: moist, tongue midline Teeth exam: PRESENT: poor dentation Neck exam: ABSENT: carotid bruit, JVD, lymphadenopathy, thyromegaly Respiratory exam: PRESENT: decreased breath sounds, wheezes Cardiovascular exam: PRESENT: tachycardia GI/Abdominal exam: PRESENT: other - Morbidly obese abdomen. Bowel sounds are present. Rectal exam: PRESENT: deferred Extremities exam: PRESENT: full ROM. ABSENT: calf tenderness, clubbing, pedal edema Neurological exam: PRESENT: alert, awake, oriented to person, oriented to place, oriented to time, oriented to situation, CN II-XII grossly intact. ABSENT: motor sensory deficit Psychiatric exam: PRESENT: appropriate affect, normal mood. ABSENT: homicidal ideation, suicidal ideation Results Laboratory Results: 07/26/18 07:43 07/26/18 07:43 07/25/18 07/25/18 07/25/18 12:17 12:17 14:25 WBC 4.9 RBC 4.13 Hgb 10.7 L Hct 33.8 L MCV 82 MCH 25.9 L MCHC 31.6 L RDW 15.8 H Plt Count 225 Seg Neutrophils % 75.2 Lymphocytes % 16.2 Monocytes % 8.5 Eosinophils % 0.0 Basophils % 0.1 Absolute Neutrophils 3.7 Absolute Lymphocytes 0.8 Absolute Monocytes 0.4 Absolute Eosinophils 0.0 Absolute Basophils 0.0 Sodium 142.1 Potassium 4.2 Chloride 98 Carbon Dioxide 29 Anion Gap 15 BUN 33 H Creatinine 1.17 Est GFR ( Amer) 57 L Est GFR (Non-Af Amer) 47 L Glucose 338 H Calcium 7.0 L* Magnesium 1.5 L Total Bilirubin 0.6 AST 37 H ALT 52 Alkaline Phosphatase 99 Total Protein 8.1 Albumin 4.0 Triglycerides Cholesterol LDL Cholesterol Direct VLDL Cholesterol HDL Cholesterol Urine Color YELLOW Urine Appearance CLOUDY Urine pH 5.0 Ur Specific [place] 1.021 Urine Protein 100 H Urine Glucose (UA) 50 H Urine Ketones NEGATIVE Urine Blood NEGATIVE Urine Nitrite NEGATIVE Ur Leukocyte Esterase NEGATIVE Urine WBC (Auto) 6 Urine RBC (Auto) 2 07/26/18 07/26/18 07:43 07:43 WBC 9.0 RBC 4.21 Hgb 11.0 L Hct 35.0 L MCV 83 MCH 26.1 L MCHC 31.4 L RDW 16.0 H Plt Count 266 Seg Neutrophils % 79.9 H Lymphocytes % 13.0 Monocytes % 6.9 Eosinophils % 0.0 Basophils % 0.2 Absolute Neutrophils 7.2 Absolute Lymphocytes 1.2 Absolute Monocytes 0.6 Absolute Eosinophils 0.0 Absolute Basophils 0.0 Sodium 143.0 Potassium 4.7 Chloride 97 L Carbon Dioxide 31 H Anion Gap 15 BUN 45 H Creatinine 1.24 Est GFR ( Amer) 53 L Est GFR (Non-Af Amer) 44 L Glucose 288 H Calcium 7.2 L Magnesium 2.1 Total Bilirubin 0.4 AST 32 ALT 53 H Alkaline Phosphatase 88 Total Protein 7.9 Albumin 3.9 Triglycerides 306 H Cholesterol 137.74 LDL Cholesterol Direct 91 VLDL Cholesterol 61.2 H HDL Cholesterol 23 L Urine Color Urine Appearance Urine pH Ur Specific [place] Urine Protein Urine Glucose (UA) Urine Ketones Urine Blood Urine Nitrite Ur Leukocyte Esterase Urine WBC (Auto) Urine RBC (Auto) 07/25/18 14:25 Clean Catch Midstream Urine Culture - Final Mixed Urogenital Jesusita Impressions: Chest X-Ray 07/24/18 13:28 IMPRESSION: Borderline cardiomegaly without pulmonary edema. Assessment and Plan - Diagnosis (1) Acute exacerbation of chronic obstructive pulmonary disease (COPD) Is this a current diagnosis for this admission?: Yes Plan: Continue IV steroids. Scheduled breathing treatments. Will also start azithromycin. 07/25/2018-patient is on IV Solu-Medrol 40 mg every 12 hours, on a scheduled breathing treatments, she is on azithromycin. Afebrile. Continued to have a wheezing on BiPAP this morning. Plan is to use the BiPAP on as needed basis and continue the breathing treatments continue the antibiotic therapy for today labs are requested for today and tomorrow. Chest x-ray is negative for acute pathology except for cardiomegaly. 07/26/[id number]-zfxn-old female admitted for acute exacerbation of COPD. Still bilateral entry was decreased bilateral extensive wheezing is present. Using BiPAP on and off. Chest x-ray shows cardiomegaly and no acute pathology. Plan is to continue IV Solu-Medrol 40 mg every 12 hours and continue antibiotic therapy continue as needed and scheduled nebulizations. (2) Acute respiratory failure with hypoxia Is this a current diagnosis for this admission?: Yes Plan: Secondary to COPD exacerbation. Currently comfortable and saturating well on BIPAP. 07/25/2018-patient admitted for acute respiratory failure with hypoxia. Most likely secondary to COPD exacerbation. Patient is in mild distress this morning on BiPAP. Plan is to continue the present management on examination chest bilateral entry was decreased bilateral extensive wheezing present. 07/26/2018-patient was admitted with acute respiratory failure with hypoxia COPD exacerbation. She is doing much better today. Using BiPAP on and off. Pulse ox is 98% on 2 L. Plan is to continue the present management. (3) DM type 2 (diabetes mellitus, type 2) Is this a current diagnosis for this admission?: Yes Plan: Non-insulin dependent. Accuchecks ACHS. Start SSI. 07/25/2018-patient has history of type 2 diabetes mellitus. Presently on Accu- Cheks before meals and at bedtime. Today's blood sugar is 305. Plan to check hemoglobin A1c tomorrow and started on Lantus 10 units twice a day. dietary consult is going to be requested. 07/26/2018-latest blood sugar is 320 and hemoglobin A1c 6.7. Presently on Solu- Medrol 40 mg every 12 hours plan to increase the Lantus to 15 units twice a day and continue insulin sliding scale. (4) Hypertension Is this a current diagnosis for this admission?: Yes Plan: Will resume home meds once verified. 07/25/2018-patient is given history of hypertension and blood pressure this morning is 160/91. Plan is to resume the home medications. Home she is on spironolactone 25 mg p.o. daily, lisinopril 40 mg p.o. daily, metoprolol 50 mg p.o. every 12 hours, also on amlodipine 10 mg p.o. daily.. 07/26/2018-patient blood pressure today is 136/70 stable. She is on spironolactone 25 mg p.o. daily, lisinopril 40 mg p.o. daily, metoprolol 50 mg p.o. every 12 hours and amlodipine 10 mg daily. Plan is to continue with his medications. (5) Hypothyroidism Is this a current diagnosis for this admission?: Yes (6) ZULEIKA (obstructive sleep apnea) Is this a current diagnosis for this admission?: Yes (7) Morbid obesity with BMI of 45.0-49.9, adult Is this a current diagnosis for this admission?: Yes - Time Time Spent with patient: 25-34 minutes Medications reviewed and adjusted accordingly: Yes Anticipated discharge: Home
[2018-07-27] MEDS: IPRATROPIUM/ALBUTEROL 0.5-2.5 MG/3 ML AMPUL NEB SCH ×7 (00:41→23:40)
[2018-07-27 05:27] LABS: HEMATOCRIT 33.3 % (36.0-47.0); HEMOGLOBIN 10.6 g/dL (12.0-15.5); MEAN CORPUSCULAR HEMOGLOBIN 26.2 pg (27.0-33.4); MEAN CORPUSCULAR HGB CONC 31.8 g/dL (32.0-36.0); MEAN CORPUSCULAR VOLUME 82 fl (80-97); PLATELET COUNT 257 10^3/uL (150-450); RED BLOOD COUNT 4.05 10^6/uL (3.72-5.28); RED CELL DISTRIBUTION WIDTH 16.1 % (11.5-14.0); WHITE BLOOD COUNT 8.2 10^3/uL (4.0-10.5)
[2018-07-27 05:45] LABS: ABSOLUTE LYMPHOCYTES# (MANUAL) 1.1 10^3/uL (0.5-4.7); ABSOLUTE MONOCYTES # (MANUAL) 0.5 10^3/uL (0.1-1.4); ABSOLUTE NEUTROPHILS# (MANUAL) 6.6 10^3/uL (1.7-8.2); ALANINE AMINOTRANSFERASE 47 U/L (9-52); ALBUMIN 3.7 g/dL (3.5-5.0); ALKALINE PHOSPHATASE 87 U/L (38-126); ANION GAP 11 (5-19); ASPARTATE AMINO TRANSFERASE 35 U/L (14-36); BAND NEUTROPHILS % (MANUAL) 1 % (3-5); BASOPHILS % (MANUAL) 0 % (0-2); BILIRUBIN,DIRECT 0.4 mg/dL (0.0-0.4); BILIRUBIN,TOTAL 0.5 mg/dL (0.2-1.3); BLOOD UREA NITROGEN 54 mg/dL (7-20); CALCIUM 8.1 mg/dL (8.4-10.2); CARBON DIOXIDE 31 mmol/L (22-30); CHLORIDE 99 mmol/L (98-107); EOSINOPHILS % (MANUAL) 0 % (0-6); GLUCOSE 324 mg/dL (75-110); LYMPHOCYTES % (MANUAL) 10 % (13-45); MONOCYTES % (MANUAL) 6 % (3-13); POTASSIUM 5.5 mmol/L (3.6-5.0); SEGMENTED NEUTROPHILS % (MAN) 80 % (42-78); SODIUM 141.3 mmol/L (137-145); TOTAL CELLS COUNTED 100; TOTAL PROTEIN 7.5 g/dL (6.3-8.2)
[2018-07-27 05:46] LABS: PLATELET COMMENT ADEQUATE
[2018-07-27 05:47] LABS: ANISOCYTOSIS 1+
[2018-07-27] MEDS: LEVOTHYROXINE SODIUM 0.15 MG TABLET PO SCH (06:22)
[2018-07-27] MEDS: GABAPENTIN 300 MG CAPSULE PO SCH ×3 (06:22→22:03)
[2018-07-27] MEDS: TRAMADOL HCL 50 MG TABLET PO PRN (08:01)
[2018-07-27] MEDS: CALCIUM ACETATE 667 MG CAPSULE PO SCH ×3 (08:01→16:55)
[2018-07-27] MEDS: INSULIN LISPRO 100 UNIT/ML 3 ML VIAL SUBCUT SCH ×4 (08:02→22:04)
[2018-07-27] MEDS: METHYLPREDNISOLONE INJ 40 MG/1 ML SDV IV SCH ×2 (09:31→12:17)
[2018-07-27] MEDS: INSULIN GLARGINE,HUM.REC.ANLOG 1,000 UNIT/10 ML VIAL SUBCUT SCH ×2 (09:32→22:04)
[2018-07-27] MEDS: MAGNESIUM OXIDE 400 MG TABLET PO SCH ×3 (09:32→17:03)
[2018-07-27] MEDS: LISINOPRIL 10 MG TABLET PO SCH (09:33)
[2018-07-27] MEDS: DULOXETINE HCL 30 MG CAPSULE.DR PO SCH (09:33)
[2018-07-27] MEDS: MONTELUKAST SODIUM 10 MG TABLET PO SCH (09:33)
[2018-07-27] MEDS: AZITHROMYCIN 250 MG TABLET PO SCH (09:33)
[2018-07-27] MEDS: HEPARIN SOD (PORCINE) 5,000 UNIT/ML 1 ML SYRINGE SUBCUT SCH ×2 (09:33→22:05)
[2018-07-27] MEDS: AMLODIPINE BESYLATE 10 MG TABLET PO SCH (09:33)
[2018-07-27] MEDS: POLYETHYLENE GLYCOL 3350 POWDER 17 GM/1 PACKET PO SCH (09:35)
[2018-07-27] MEDS: ATORVASTATIN CALCIUM 40 MG TABLET PO SCH (09:35)
[2018-07-27] MEDS: FUROSEMIDE 20 MG TABLET PO SCH (09:35)
[2018-07-27] MEDS: CALCIUM CARBONATE 500 MG TAB.CHEW PO SCH ×3 (09:35→17:03)
[2018-07-27] MEDS: METOPROLOL TARTRATE 50 MG TABLET PO SCH ×2 (09:35→22:03)
[2018-07-27] MEDS: SPIRONOLACTONE 25 MG TABLET PO SCH (09:35)
[2018-07-27] MEDS: FLUTICASONE/VILANTEROL 100-25 MCG/DOSE IH SCH (09:36)
--- NOTE | 2018-07-27 10:42 | PDOC PROGRESS REPORT ---
Subjective Progress Note for:: 07/27/18 Subjective:: 58 year old female with a PMH of COPD/asthma, ZULEIKA not compliant on CPAP, HTN, DM 2 and hypothyroidism who presented with increasing SOB and wheezing. is on bedside. Patient has been having worsening SOB and wheezing since . This is associated with moderately productive cough with whitish sputum. She complained of chills but not fever. In the ER, she was noted to be very tachypneic and had significant bilateral wheezing. She was placed on BIPAP. She was given IV steroids and breathing treatments which gave her relief. 07/[id number]-adoz-old obese female with history of asthma COPD admitted for acute on chronic respiratory failure secondary to COPD exacerbation. In the emergency room she is tachypneic and bilateral wheezing she was placed on BiPAP and a statin IV steroids and and breathing treatments patient is on BiPAP at the time of examination this morning and on examination bilateral extensive wheezing is present patient is in mild to moderate distress. Patient is complaining of anxiety and shaking she says she takes calcium supplementation for hypocalcemia at home. No acute events in the last 24 hours. Patient is afebrile. Temperature 98.1. 07/26/2018-no acute events in the last 24 hours. Afebrile. Patient says she is feeling little bit better. Blood cultures positive for gram-positive cocci. Presently on azithromycin and Rocephin. Sugar this morning is 320 she is on IV Solu-Medrol 40 mg every 12 hours and on insulin sliding scale with Lantus 10 units twice a day. Lantus dose was increased to 15 units twice a day. pt using BiPAP on and off. 07/27/2018-no acute events in the last 24 hours. Patient is afebrile. Patient states feeling much better today. Presently on IV Rocephin and IV azithromycin. Blood cultures came back positive for Staphylococcus hominis. To continue IV Rocephin and discontinue IV azithromycin from today. Patient is comfortably in the bed communicating well denies any complaints. Reason For Visit: ACUTE HYPOXIC RESPIRATORY FAILURE,COPD Physical Exam Vital Signs: Temp Pulse Resp BP Pulse Ox 97.7 F 63 16 141/64 H 96 07/27/18 08:00 07/27/18 08:00 07/27/18 08:00 07/27/18 08:00 07/27/18 08:00 Intake & Output 07/26/18 07/27/18 07/28/18 06:59 06:59 06:59 Intake Total 1110 500 Balance 1110 500 Weight 117 kg 117 kg General appearance: PRESENT: no acute distress, morbidly obese Head exam: PRESENT: atraumatic Eye exam: PRESENT: PERRLA Mouth exam: PRESENT: moist, tongue midline Neck exam: ABSENT: carotid bruit, JVD, lymphadenopathy, thyromegaly Respiratory exam: PRESENT: decreased breath sounds, wheezes Cardiovascular exam: PRESENT: tachycardia GI/Abdominal exam: PRESENT: normal bowel sounds, soft. ABSENT: distended, guarding, mass, organolmegaly, rebound, tenderness Rectal exam: PRESENT: deferred Extremities exam: PRESENT: full ROM. ABSENT: calf tenderness, clubbing, pedal edema Neurological exam: PRESENT: alert, awake, oriented to person, oriented to place, oriented to time, oriented to situation, CN II-XII grossly intact. ABSENT: motor sensory deficit Psychiatric exam: PRESENT: appropriate affect, normal mood. ABSENT: homicidal ideation, suicidal ideation Results Laboratory Results: 07/27/18 04:53 07/27/18 04:53 07/27/18 07/27/18 04:53 04:53 WBC 8.2 RBC 4.05 Hgb 10.6 L Hct 33.3 L MCV 82 MCH 26.2 L MCHC 31.8 L RDW 16.1 H Plt Count 257 Seg Neutrophils % Not Reportable Lymphocytes % Not Reportable Monocytes % Not Reportable Eosinophils % Not Reportable Basophils % Not Reportable Absolute Neutrophils Not Reportable Absolute Lymphocytes Not Reportable Absolute Monocytes Not Reportable Absolute Eosinophils Not Reportable Absolute Basophils Not Reportable Sodium 141.3 Potassium 5.5 H Chloride 99 Carbon Dioxide 31 H Anion Gap 11 BUN 54 H Creatinine 1.12 Est GFR ( Amer) > 60 Est GFR (Non-Af Amer) 50 L Glucose 324 H Calcium 8.1 L Magnesium 2.8 H Total Bilirubin 0.5 AST 35 ALT 47 Alkaline Phosphatase 87 Total Protein 7.5 Albumin 3.7 07/24/18 13:33 Blood Blood Culture - Final Staphylococcus Hominis 07/25/18 14:25 Clean Catch Midstream Urine Culture - Final Mixed Urogenital Jesusita Impressions: Chest X-Ray 07/24/18 13:28 IMPRESSION: Borderline cardiomegaly without pulmonary edema. Assessment and Plan - Diagnosis (1) Acute exacerbation of chronic obstructive pulmonary disease (COPD) Is this a current diagnosis for this admission?: Yes Plan: Continue IV steroids. Scheduled breathing treatments. Will also start azithromycin. 07/25/2018-patient is on IV Solu-Medrol 40 mg every 12 hours, on a scheduled breathing treatments, she is on azithromycin. Afebrile. Continued to have a wheezing on BiPAP this morning. Plan is to use the BiPAP on as needed basis and continue the breathing treatments continue the antibiotic therapy for today labs are requested for today and tomorrow. Chest x-ray is negative for acute pathology except for cardiomegaly. 07/[id number]-prhp-old female admitted for acute exacerbation of COPD. Still bilateral entry was decreased bilateral extensive wheezing is present. Using BiPAP on and off. Chest x-ray shows cardiomegaly and no acute pathology. Plan is to continue IV Solu-Medrol 40 mg every 12 hours and continue antibiotic therapy continue as needed and scheduled nebulizations. 07/27/[id number]-bobu-old female admitted for a COPD exacerbation. On examination bilateral entry was decreased to wheezing is much better compared to yesterday. She is off the BiPAP now. Chest x-ray ruled out pneumonia. Presently on IV Solu-Medrol 40 mg every 12 hours plan is to decrease the frequency to once a day. Blood cultures positive for Staphylococcus hominis presently on IV Rocephin and IV Zithromax. plan is to discontinue IV Zithromax from today. (2) Acute respiratory failure with hypoxia Is this a current diagnosis for this admission?: Yes Plan: Secondary to COPD exacerbation. Currently comfortable and saturating well on BIPAP. 07/25/2018-patient admitted for acute respiratory failure with hypoxia. Most likely secondary to COPD exacerbation. Patient is in mild distress this morning on BiPAP. Plan is to continue the present management on examination chest bilateral entry was decreased bilateral extensive wheezing present. 07/26/2018-patient was admitted with acute respiratory failure with hypoxia COPD exacerbation. She is doing much better today. Using BiPAP on and off. Pulse ox is 98% on 2 L. Plan is to continue the present management. 07/27/2018-patient admitted with acute respiratory failure with hypoxia secondary to COPD exacerbation. Pulse ox is 96% on 3 L today. Comfortably in the bed communicating well. Plan is to continue the present management , to check for the home oxygen requirements tomorrow. (3) DM type 2 (diabetes mellitus, type 2) Is this a current diagnosis for this admission?: Yes Plan: Non-insulin dependent. Accuchecks ACHS. Start SSI. 07/25/2018-patient has history of type 2 diabetes mellitus. Presently on Accu- Cheks before meals and at bedtime. Today's blood sugar is 305. Plan to check hemoglobin A1c tomorrow and started on Lantus 10 units twice a day. dietary consult is going to be requested. 07/26/2018-latest blood sugar is 320 and hemoglobin A1c 6.7. Presently on Solu- Medrol 40 mg every 12 hours plan to increase the Lantus to 15 units twice a day and continue insulin sliding scale. 07/27/2018-patient's latest blood sugar is 295 on IV Solu-Medrol 40 mg every 12 hours. Presently on Lantus 15 units twice a day and also on insulin sliding scale before meals and at bedtime. Plan is to decrease the frequency of IV Solu-Medrol to daily and increase the Lantus to 20 units twice a day. (4) Hypertension Is this a current diagnosis for this admission?: Yes Plan: Will resume home meds once verified. 07/25/2018-patient is given history of hypertension and blood pressure this morning is 160/91. Plan is to resume the home medications. Home she is on spironolactone 25 mg p.o. daily, lisinopril 40 mg p.o. daily, metoprolol 50 mg p.o. every 12 hours, also on amlodipine 10 mg p.o. daily.. 07/26/2018-patient blood pressure today is 136/70 stable. She is on spironolactone 25 mg p.o. daily, lisinopril 40 mg p.o. daily, metoprolol 50 mg p.o. every 12 hours and amlodipine 10 mg daily. Plan is to continue with his medications. 07/27/2018-patient's latest blood pressure is 141/64, presently on spironolactone 25 mg p.o. daily, lisinopril 20 mg p.o. daily, metoprolol 50 mg every 12 hours and amlodipine 10 mg p.o. daily because the potassium levels are elevated at 5.5 to hold spironolactone for today. (5) Hypothyroidism Is this a current diagnosis for this admission?: Yes Plan: Resume synthroid once home meds are verified. 07/27/2018-plan is to continue Synthyroid during the hospital stay. (6) ZULEIKA (obstructive sleep apnea) Is this a current diagnosis for this admission?: Yes Plan: Non compliant with CPAP. BIPAP at night. 07/25/2018-patient is noncompliant with his CPAP machine at home. Presently on BiPAP on as-needed basis. 07/27/2018-patient BMI is more than 45 she is noncompliant with CPAP machine at home. At the time of admission she is on BiPAP presently she is off the BiPAP. (7) Morbid obesity with BMI of 45.0-49.9, adult Is this a current diagnosis for this admission?: Yes Plan: 07/25/2018-patient BMI is around 47. Diet exercise lifestyle modifications and weight loss discussed with the patient. Dietary consult was requested. 07/27/2018-patient's BMI is more than 47 diet exercise weight loss lifestyle modifications discussed with the patient and dietary consult was requested. - Time Time Spent with patient: 25-34 minutes Medications reviewed and adjusted accordingly: Yes Anticipated discharge: Home
[2018-07-27] MEDS ORDERED: SODIUM POLYSTYRENE SULFONATE 15 GM/60 ML PO ONE ×2 (11:30→15:30)
[2018-07-27] MEDS: CEFTRIAXONE 2 GM/D5W RTU 2 GM/50 ML RTUPB IV SCH (12:16)
[2018-07-28] MEDS: IPRATROPIUM/ALBUTEROL 0.5-2.5 MG/3 ML AMPUL NEB SCH ×3 (04:17→11:28)
[2018-07-28] MEDS: GABAPENTIN 300 MG CAPSULE PO SCH (05:11)
[2018-07-28] MEDS: LEVOTHYROXINE SODIUM 0.15 MG TABLET PO SCH (05:11)
[2018-07-28 05:33] LABS: HEMOGLOBIN 10.4 g/dL (12.0-15.5); MEAN CORPUSCULAR HEMOGLOBIN 25.8 pg (27.0-33.4); MEAN CORPUSCULAR HGB CONC 31.6 g/dL (32.0-36.0); MEAN CORPUSCULAR VOLUME 82 fl (80-97); PLATELET COUNT 249 10^3/uL (150-450); RED BLOOD COUNT 4.04 10^6/uL (3.72-5.28); RED CELL DISTRIBUTION WIDTH 15.6 % (11.5-14.0); WHITE BLOOD COUNT 9.9 10^3/uL (4.0-10.5)
[2018-07-28 05:50] LABS: ALANINE AMINOTRANSFERASE 47 U/L (9-52); ALBUMIN 3.6 g/dL (3.5-5.0); ALKALINE PHOSPHATASE 79 U/L (38-126); ANION GAP 11 (5-19); ASPARTATE AMINO TRANSFERASE 27 U/L (14-36); BILIRUBIN,DIRECT 0.4 mg/dL (0.0-0.4); BILIRUBIN,TOTAL 0.4 mg/dL (0.2-1.3); BLOOD UREA NITROGEN 38 mg/dL (7-20); CALCIUM 8.1 mg/dL (8.4-10.2); CARBON DIOXIDE 35 mmol/L (22-30); CHLORIDE 98 mmol/L (98-107); GLUCOSE 237 mg/dL (75-110); POTASSIUM 4.6 mmol/L (3.6-5.0); SODIUM 143.5 mmol/L (137-145); TOTAL PROTEIN 7.4 g/dL (6.3-8.2)
[2018-07-28 06:07] LABS: ABSOLUTE LYMPHOCYTES# (MANUAL) 1.8 10^3/uL (0.5-4.7); ABSOLUTE MONOCYTES # (MANUAL) 0.9 10^3/uL (0.1-1.4); ABSOLUTE NEUTROPHILS# (MANUAL) 7.2 10^3/uL (1.7-8.2); BASOPHILS % (MANUAL) 0 % (0-2); EOSINOPHILS % (MANUAL) 0 % (0-6); LYMPHOCYTES % (MANUAL) 17 % (13-45); MONOCYTES % (MANUAL) 9 % (3-13); SEGMENTED NEUTROPHILS % (MAN) 73 % (42-78); TOTAL CELLS COUNTED 100
[2018-07-28 06:08] LABS: ANISOCYTOSIS SLIGHT; PLATELET COMMENT ADEQUATE; STOMATOCYTES SLIGHT
[2018-07-28] MEDS: INSULIN LISPRO 100 UNIT/ML 3 ML VIAL SUBCUT SCH ×2 (08:05→13:13)
[2018-07-28] MEDS: CALCIUM ACETATE 667 MG CAPSULE PO SCH (08:05)
[2018-07-28 09:32] VITALS: BP 133/60
[2018-07-28] MEDS: CALCIUM CARBONATE 500 MG TAB.CHEW PO SCH (09:44)
[2018-07-28] MEDS: HEPARIN SOD (PORCINE) 5,000 UNIT/ML 1 ML SYRINGE SUBCUT SCH (09:44)
[2018-07-28] MEDS: AZITHROMYCIN 250 MG TABLET PO SCH (09:44)
[2018-07-28] MEDS: LISINOPRIL 10 MG TABLET PO SCH (09:44)
[2018-07-28] MEDS: FUROSEMIDE 20 MG TABLET PO SCH (09:45)
[2018-07-28] MEDS: DULOXETINE HCL 30 MG CAPSULE.DR PO SCH (09:45)
[2018-07-28] MEDS: METOPROLOL TARTRATE 50 MG TABLET PO SCH (09:45)
[2018-07-28] MEDS: ATORVASTATIN CALCIUM 40 MG TABLET PO SCH (09:45)
[2018-07-28] MEDS: MONTELUKAST SODIUM 10 MG TABLET PO SCH (09:45)
[2018-07-28] MEDS: FLUTICASONE/VILANTEROL 100-25 MCG/DOSE IH SCH (09:46)
[2018-07-28] MEDS: POLYETHYLENE GLYCOL 3350 POWDER 17 GM/1 PACKET PO SCH (09:46)
[2018-07-28] MEDS: METHYLPREDNISOLONE INJ 40 MG/1 ML SDV IV SCH (09:46)
[2018-07-28] MEDS: AMLODIPINE BESYLATE 10 MG TABLET PO SCH (09:46)
[2018-07-28] MEDS: MAGNESIUM OXIDE 400 MG TABLET PO SCH (09:47)
[2018-07-28] MEDS: ERGOCALCIFEROL (VITAMIN D2) 50000 UNIT (1.25 MG) CAPSULE PO SCH (09:47)
[2018-07-28] MEDS: INSULIN GLARGINE,HUM.REC.ANLOG 1,000 UNIT/10 ML VIAL SUBCUT SCH (09:51)
--- NOTE | 2018-07-28 12:04 | PDOC DISCHARGE SUMMARY ---
General - Admit/Disc Date/PCP Admission Date/Primary Care Provider: 07/27/18 11:05 BISHOP WILEY MD Discharge Date: 07/28/18 - Discharge Diagnosis (1) Acute exacerbation of chronic obstructive pulmonary disease (COPD) Is this a current diagnosis for this admission?: Yes Summary: Continue IV steroids. Scheduled breathing treatments. Will also start azithromycin. 07/25/2018-patient is on IV Solu-Medrol 40 mg every 12 hours, on a scheduled breathing treatments, she is on azithromycin. Afebrile. Continued to have a wheezing on BiPAP this morning. Plan is to use the BiPAP on as needed basis and continue the breathing treatments continue the antibiotic therapy for today labs are requested for today and tomorrow. Chest x-ray is negative for acute pathology except for cardiomegaly. 07/26/[id number]-xunb-old female admitted for acute exacerbation of COPD. Still bilateral entry was decreased bilateral extensive wheezing is present. Using BiPAP on and off. Chest x-ray shows cardiomegaly and no acute pathology. Plan is to continue IV Solu-Medrol 40 mg every 12 hours and continue antibiotic therapy continue as needed and scheduled nebulizations. 07/27/[id number]-bzjl-old female admitted for a COPD exacerbation. On examination bilateral entry was decreased to wheezing is much better compared to yesterday. She is off the BiPAP now. Chest x-ray ruled out pneumonia. Presently on IV Solu-Medrol 40 mg every 12 hours plan is to decrease the frequency to once a day. Blood cultures positive for Staphylococcus hominis presently on IV Rocephin and IV Zithromax. plan is to discontinue IV Zithromax from today. 07/28/2018-patient is admitted with COPD exacerbation. Patient doing very well. On examination today chest bilateral it was decreased mild wheezing present. Pulse ox is 96% on 2 L. Patient is expressing desire to go home. Blood cultures show Staphylococcus hominis until this morning treated with IV Rocephin and Zithromax. Patient is going home on azithromycin 40 mg p.o. daily for 5 days. Patient is advised to continue the inhalers and nebulizer treatments at home. Chest x-ray was negative for pneumonia. (2) Acute respiratory failure with hypoxia Is this a current diagnosis for this admission?: Yes Summary: Secondary to COPD exacerbation. Currently comfortable and saturating well on BIPAP. 07/25/2018-patient admitted for acute respiratory failure with hypoxia. Most likely secondary to COPD exacerbation. Patient is in mild distress this morning on BiPAP. Plan is to continue the present management on examination chest bilateral entry was decreased bilateral extensive wheezing present. 07/26/2018-patient was admitted with acute respiratory failure with hypoxia COPD exacerbation. She is doing much better today. Using BiPAP on and off. Pulse ox is 98% on 2 L. Plan is to continue the present management. 07/27/2018-patient admitted with acute respiratory failure with hypoxia secondary to COPD exacerbation. Pulse ox is 96% on 3 L today. Comfortably in the bed communicating well. Plan is to continue the present management , to check for the home oxygen requirements tomorrow. [id number]-rbdh-old female admitted for acute respiratory failure with hypoxia most likely secondary to COPD exacerbation. Pulse ox today is 96% on 2 L. Vertebral in the bed communicating well. Chest examination bilateral entry was decreased mild wheezing present. She does advised to continue the nebulizations at home. (3) DM type 2 (diabetes mellitus, type 2) Is this a current diagnosis for this admission?: Yes Summary: Non-insulin dependent. Accuchecks ACHS. Start SSI. 07/25/2018-patient has history of type 2 diabetes mellitus. Presently on Accu- Cheks before meals and at bedtime. Today's blood sugar is 305. Plan to check hemoglobin A1c tomorrow and started on Lantus 10 units twice a day. dietary c onsult is going to be requested. 07/26/2018-latest blood sugar is 320 and hemoglobin A1c 6.7. Presently on Solu- Medrol 40 mg every 12 hours plan to increase the Lantus to 15 units twice a day and continue insulin sliding scale. 07/27/2018-patient's latest blood sugar is 295 on IV Solu-Medrol 40 mg every 12 hours. Presently on Lantus 15 units twice a day and also on insulin sliding scale before meals and at bedtime. Plan is to decrease the frequency of IV Solu-Medrol to daily and increase the Lantus to 20 units twice a day. 07/28/2018-patient latest blood sugar is 183. Her hives may be secondary to IV Solu-Medrol. Patient received Lantus 15 units twice a day and insulin sliding scale before meals and at bedtime during the hospital stay. At home patient is advised to resume glipizide/metformin and advised to continue to check blood sugars at least twice a day. (4) Hypertension Is this a current diagnosis for this admission?: Yes Summary: Will resume home meds once verified. 07/25/2018-patient is given history of hypertension and blood pressure this morning is 160/91. Plan is to resume the home medications. Home she is on spironolactone 25 mg p.o. daily, lisinopril 40 mg p.o. daily, metoprolol 50 mg p.o. every 12 hours, also on amlodipine 10 mg p.o. daily.. 07/26/2018-patient blood pressure today is 136/70 stable. She is on spironolactone 25 mg p.o. daily, lisinopril 40 mg p.o. daily, metoprolol 50 mg p.o. every 12 hours and amlodipine 10 mg daily. Plan is to continue with his medications. 07/27/2018-patient's latest blood pressure is 141/64, presently on spironolactone 25 mg p.o. daily, lisinopril 20 mg p.o. daily, metoprolol 50 mg every 12 hours and amlodipine 10 mg p.o. daily because the potassium levels are elevated at 5.5 to hold spironolactone for today. 07/28/2018-patient has history of hypertension blood pressure today is 137/77. Stable. Patient is advised to resume her home medications. (5) Hypothyroidism Is this a current diagnosis for this admission?: Yes (6) ZULEIKA (obstructive sleep apnea) Is this a current diagnosis for this admission?: Yes Summary: Non compliant with CPAP. BIPAP at night. 07/25/2018-patient is noncompliant with his CPAP machine at home. Presently on BiPAP on as-needed basis. 07/27/2018-patient BMI is more than 45 she is noncompliant with CPAP machine at home. At the time of admission she is on BiPAP presently she is off the BiPAP. 05/2018-patient has history of obstructive sleep apnea she is noncompliant with CPAP machine at home. Initially during the hospital stay she required BiPAP. Presently she is on oxygen 2 L nasal cannula. Patient is advised to be compliant with CPAP machine at home. (7) Morbid obesity with BMI of 45.0-49.9, adult Is this a current diagnosis for this admission?: Yes - Additional Information Resuscitation Status: Full Code Discharge Diet: Diabetic Discharge Activity: Activity As Tolerated Prescriptions: Azithromycin [Zithromax 250 mg Tablet] 500 mg PO DAILY #5 tablet Home Medications: Albuterol Sulfate [Proventil Hfa] 2 puff IH Q6HP PRN 07/24/18 Amlodipine Besylate [Norvasc 10 mg Tablet] 10 mg PO DAILY 07/24/18 Atorvastatin Calcium [Lipitor 40 mg Tablet] 40 mg PO DAILY 07/24/18 Budesonide/Formoterol Fumarate [Symbicort HFA 80-4.5 mcg Inhaler 6.9 gm] 2 puff IH BID 07/24/18 Calcium Acetate [Phoslo 667 mg Capsule] 1,334 mg PO TID 07/24/18 Calcium Carbonate [Tums Chewable 500 mg Tab.chew] 1,000 mg PO TID 07/24/18 Duloxetine HCl [Cymbalta] 60 mg PO DAILY 07/24/18 Ergocalciferol (Vitamin D2) [Drisdol] 50,000 unit PO MOWEFR@1000 07/24/18 Furosemide [Lasix 20 mg Tablet] 40 mg PO DAILY 07/24/18 Gabapentin [Neurontin 300 mg Capsule] 300 mg PO Q8 07/24/18 Glipizide/Metformin HCl [Glipizide-Metformin 5-500 mg] 2 each PO DAILY 07/24/18 Ipratropium/Albuterol Sulfate [Duoneb 3 ml Ampul] 3 ml NEB RTQ6HP PRN 07/24/18 Levothyroxine Sodium [Synthroid 0.15 mg Tablet] 0.15 mg PO Q6AM 07/24/18 Lisinopril [Prinivil 40 mg Tablet] 40 mg PO DAILY 07/24/18 Magnesium Oxide [Mag-Ox 400 mg Tablet] 800 mg PO TID 07/24/18 Metoprolol Tartrate [Lopressor] 50 mg PO Q12 07/24/18 Montelukast Sodium [Singulair 10 mg Tablet] 10 mg PO DAILY 07/24/18 Omeprazole 40 mg PO QAM 07/24/18 Polyethylene Glycol 3350 [Miralax Powder 17 gm/Packet] 1 packet PO DAILY 07/24/18 Probenecid/Colchicine [Probenecid-Colchicine Tabs] 1 each PO BID 07/24/18 Spironolactone [Aldactone 25 mg Tablet] 25 mg PO DAILY 07/24/18 Tramadol HCl [Ultram] 50 mg PO Q6HP PRN 07/24/18 Azithromycin [Zithromax 250 mg Tablet] 500 mg PO DAILY #5 tablet 07/28/18 History of Present Illness History of Present Illness: PORTER SCHROEDER is a 58 year old female 58 year old female with a PMH of COPD/asthma, ZULEIKA not compliant on CPAP, HTN, DM 2 and hypothyroidism who presented with increasing SOB and wheezing. is on bedside. Patient has been having worsening SOB and wheezing since . This is associated with moderately productive cough with whitish sputum. She complained of chills but not fever. In the ER, she was noted to be very tachypneic and had significant bilateral wheezing. She was placed on BIPAP. She was given IV steroids and breathing treatments which gave her relief. Physical Exam Vital Signs: Temp Pulse Resp BP Pulse Ox 98.2 F 82 16 133/60 H 96 07/28/18 08:00 07/28/18 11:28 07/28/18 11:28 07/28/18 08:00 07/28/18 11:28 Intake & Output 07/27/18 07/28/18 07/29/18 06:59 06:59 06:59 Intake Total 500 1008 Balance 500 1008 Weight 117 kg 118 kg General appearance: PRESENT: no acute distress Head exam: PRESENT: atraumatic Eye exam: PRESENT: PERRLA Ear exam: PRESENT: normal external ear exam Mouth exam: PRESENT: moist, tongue midline Neck exam: ABSENT: carotid bruit, JVD, lymphadenopathy, thyromegaly Respiratory exam: PRESENT: decreased breath sounds Cardiovascular exam: PRESENT: RRR. ABSENT: diastolic murmur, rubs, systolic murmur GI/Abdominal exam: PRESENT: normal bowel sounds, soft. ABSENT: distended, guarding, mass, organolmegaly, rebound, tenderness Rectal exam: PRESENT: deferred Extremities exam: PRESENT: full ROM. ABSENT: calf tenderness, clubbing, pedal edema Neurological exam: PRESENT: alert, awake, oriented to person, oriented to place, oriented to time, oriented to situation, CN II-XII grossly intact. ABSENT: motor sensory deficit Psychiatric exam: PRESENT: appropriate affect, normal mood. ABSENT: homicidal ideation, suicidal ideation Results Laboratory Results: 07/28/18 04:53 07/28/18 04:53 07/28/18 07/28/18 04:53 04:53 WBC 9.9 RBC 4.04 Hgb 10.4 L Hct 33.0 L MCV 82 MCH 25.8 L MCHC 31.6 L RDW 15.6 H Plt Count 249 Seg Neutrophils % Not Reportable Lymphocytes % Not Reportable Monocytes % Not Reportable Eosinophils % Not Reportable Basophils % Not Reportable Absolute Neutrophils Not Reportable Absolute Lymphocytes Not Reportable Absolute Monocytes Not Reportable Absolute Eosinophils Not Reportable Absolute Basophils Not Reportable Sodium 143.5 Potassium 4.6 Chloride 98 Carbon Dioxide 35 H Anion Gap 11 BUN 38 H Creatinine 0.84 Est GFR ( Amer) > 60 Est GFR (Non-Af Amer) > 60 Glucose 237 H Calcium 8.1 L Magnesium 2.4 H Total Bilirubin 0.4 AST 27 ALT 47 Alkaline Phosphatase 79 Total Protein 7.4 Albumin 3.6 07/24/18 13:33 Blood Blood Culture - Final Staphylococcus Hominis Impressions: Chest X-Ray 07/24/18 13:28 IMPRESSION: Borderline cardiomegaly without pulmonary edema. Qualifiers - * PATIENT BEING DISCHARGED WITH ANY OF THE FOLLOWING DIAGNOSIS: No VTE patient discharged on overlapping Therapy?: No Acute Heart Failure Is this a Heart Failure Patient?: No Plan Discharge Plan: Patient is going home today. Time Spent: Greater than 30 Minutes
== END 2018-07-28 14:39 | disposition home or self-care (01) | DRG 190 ==
LOC: ER 13:11 → INTOOBSV 15:20 → OBSVTOIN 15:20 → EH 15:20 → 5 19:21 → OBSVTOIN 07-27 11:05
PROVIDERS: ADMIT Internal Medicine; ATTEND Internal Medicine
PROC: 5A09357 Assistance with Respiratory Ventilation, Less than 24 Consecutive Hours, Continuous Positive Airway Pressure (ICD-10-PCS; principal; 2018-07-27)
PROC: 3E0F3GC Introduction of Other Therapeutic Substance into Respiratory Tract, Percutaneous Approach (ICD-10-PCS; 2018-07-27)
DX: J44.1 Chronic obstructive pulmonary disease with (acute) exacerbation (principal); J96.01 Acute respiratory failure with hypoxia; Z68.42 Body mass index [BMI] 45.0-49.9, adult; E11.51 Type 2 diabetes mellitus with diabetic peripheral angiopathy without gangrene; E66.01 Morbid (severe) obesity due to excess calories; I11.9 Hypertensive heart disease without heart failure; E03.9 Hypothyroidism, unspecified; G47.33 Obstructive sleep apnea (adult) (pediatric); I25.10 Atherosclerotic heart disease of native coronary artery without angina pectoris; E78.5 Hyperlipidemia, unspecified; K21.9 Gastro-esophageal reflux disease without esophagitis; F32.9 Major depressive disorder, single episode, unspecified; D64.9 Anemia, unspecified; F12.10 Cannabis abuse, uncomplicated; M19.90 Unspecified osteoarthritis, unspecified site; F17.210 Nicotine dependence, cigarettes, uncomplicated; Z91.19 Patient's noncompliance with other medical treatment and regimen; Z79.84 Long term (current) use of oral hypoglycemic drugs; Z79.51 Long term (current) use of inhaled steroids; Z88.6 Allergy status to analgesic agent; Z88.2 Allergy status to sulfonamides; Z88.8 Allergy status to other drugs, medicaments and biological substances
CPT/HCPCS: 36415; 71045; 80053; 80061; 81001; 82803; 82962; 83036; 83605; 83735; 85025; 85610; 87040; 87077; 87086; 87186; 93005; 93010; 94640; 94660; 94667; 94668; 96374; 96375; 99291; G0378; J0696; J1644; J1815; J2060; J2920; J2930; J3490; J7620

== ENCOUNTER 2018-11-01 15:26 | Emergency (ER) | payer OTHER ==
[2018-11-01] MEDS ORDERED: TRAMADOL HCL 50 MG TABLET PO ONE (16:36)
[2018-11-01] MEDS ORDERED: MAGNESIUM SULFATE/D5W 1 GM/100 ML RTUPB IV ONE (16:37)
--- NOTE | 2018-11-01 16:40 | ER Document Report ---
ED General - General Chief Complaint: Abnormal Lab Results Stated Complaint: ABNORMAL LABS Time Seen by Provider: 11/01/18 16:13 Primary Care Provider: HERO GLASER MD [Primary Care Provider] - Follow up as needed TRAVEL OUTSIDE OF THE [place] IN LAST 30 DAYS: No - HPI Notes: Patient states that she had labs drawn today by her manager event. She states that her manager event told her to come to the emergency department and receive magnesium because her magnesium was low. She states she has been having cramping and pain on the left side of her body. She states it is all through the left trunk and left lower extremity. This pain is been moderate to severe. It is constant. Nothing makes it better or worse. She denies any other significant symptoms. No fever no cough cold or congestion. No vomiting or diarrhea. She states she does not take dialysis at this time. She has a stage III kidney disease. - Related Data Allergies/Adverse Reactions: aspirin [Aspirin] Allergy (Severe, Verified 11/01/18 15:29) n and v etodolac [From Lodine] Allergy (Severe, Verified 11/01/18 15:29) Hives oxycodone HCl [From Percocet] Allergy (Severe, Verified 11/01/18 15:29) itching simvastatin [Simvastatin] Allergy (Severe, Verified 11/01/18 15:29) cramping Sulfa (Sulfonamide Antibiotics) Allergy (Severe, Verified 11/01/18 15:29) pain sulfamethoxazole [From Septra] Allergy (Severe, Verified 11/01/18 15:29) pain triamterene [From Maxzide] Allergy (Severe, Verified 11/01/18 15:29) unsure trimethoprim [From Septra] Allergy (Severe, Verified 11/01/18 15:29) pain Past Medical History - General Information source: Patient - Social History Smoking Status: Never Smoker Frequency of alcohol use: None Drug Abuse: None - I reviewed the nursing notes for the past medical history. Family History: Reviewed & Not Pertinent - Past Medical History Cardiac Medical History: Reports: Hx Coronary Artery Disease, Hx Hypercholesterolemia - hx of, Hx Hypertension - on meds, Hx Peripheral Vascular Disease, Hx Heart Murmur Denies: Hx Atrial Fibrillation, Hx Congestive Heart Failure, Hx Heart Attack, Hx Pulmonary Embolism Pulmonary Medical History: Reports: Hx Asthma - on meds, Hx COPD - on meds, Hx Pneumonia - hx of, Hx Sleep Apnea - cpap Denies: Hx Bronchitis, Hx Respiratory Failure, Hx Tuberculosis Neurological Medical History: Denies: Hx Cerebrovascular Accident, Hx Seizures Endocrine Medical History: Reports: Hx Diabetes Mellitus Type 2, Hx Hyperthyroidism - goiter. Denies: Hx Graves' Disease, Hx Hypothyroidism Renal/ Medical History: Denies: Hx End Stage Renal Disease, Hx Kidney Stones, Hx Ovarian Cysts, Hx Peritoneal Dialysis, Hx Pelvic Inflammatory Disease Malignancy Medical History: Denies: Hx Breast Cancer, Hx Cervical Cancer, Hx Lung Cancer, Hx Ovarian Cancer GI Medical History: Reports: Hx Gastroesophageal Reflux Disease - on meds. Denies: Hx Crohn's Disease, Hx Hiatal Hernia, Hx Irritable Bowel, Hx Liver Failure, Hx Pancreatitis, Hx Ulcer Musculoskeletal Medical History: Reports Hx Arthritis - on meds, Denies Hx Fibromyalgia, Denies Hx Multiple Sclerosis, Denies Hx Muscular Dystrophy, Denies Hx Systemic Lupus Erythematosus Psychiatric Medical History: Reports: Hx Depression Denies: Hx Bipolar Disorder, Hx Dementia, Hx Post Traumatic Stress Disorder, Hx Schizophrenia Traumatic Medical History: Reports: Hx Fractures Past Surgical History: Reports: Hx Hysterectomy, Hx Thyroid Surgery. Denies: Hx Appendectomy, Hx Bowel Surgery, Hx Section, Hx Cholecystectomy, Hx Colostomy, Hx Coronary Artery Bypass Graft, Hx Gastric Bypass Surgery, Hx Herniorrhaphy, Hx Mastectomy, Hx Pacemaker, Hx Tonsillectomy, Hx Tubal Ligation - Immunizations Hx Diphtheria, Pertussis, Tetanus Vaccination: Yes Hx Pneumococcal Vaccination: 03/28/10 Review of Systems - Review of Systems Constitutional: Malaise, Weakness. denies: Chills, Fever Cardiovascular: denies: Chest pain, Palpitations Respiratory: denies: Cough, Hurts to breathe, Short of breath, Sputum Gastrointestinal: denies: Diarrhea, Nausea, Vomiting -: Yes All other systems reviewed and negative Physical Exam - Vital signs Vitals: Temp Pulse Resp BP Pulse Ox 98.7 F 66 16 130/50 H 96 11/01/18 15:35 11/01/18 15:35 11/01/18 15:35 11/01/18 15:35 11/01/18 15:35 Interpretation: Normal - General General appearance: Appears well, Alert - HEENT Head: Normocephalic, Atraumatic Eyes: Normal Pupils: PERRL - Respiratory Respiratory status: No respiratory distress Chest status: Nontender Breath sounds: Normal Chest palpation: Normal - Cardiovascular Rhythm: Regular Heart sounds: Normal auscultation Murmur: No - Abdominal Inspection: Normal Distension: No distension Bowel sounds: Normal Tenderness: Nontender Organomegaly: No organomegaly - Back Back: Normal, Nontender - Extremities General upper extremity: Normal inspection, Nontender, Normal color, Normal ROM, Normal temperature General lower extremity: Normal inspection, Nontender, Normal color, Normal ROM, Normal temperature, Normal weight bearing. No: Kinza's sign - Neurological Neuro grossly intact: Yes Cognition: Normal Orientation: AAOx4 [place] Coma Scale Eye Opening: Spontaneous [place] Coma Scale Verbal: Oriented [place] Coma Scale Motor: Obeys Commands [place] Coma Scale Total: 15 Speech: Normal Motor strength normal: LUE, RUE, LLE, RLE Sensory: Normal - Psychological Associated symptoms: Normal affect, Normal mood - Skin Skin Temperature: Warm Skin Moisture: Dry Skin Color: Normal Course - Re-evaluation Re-evalutation: 11/01/18 18:53 Patient received IV magnesium. Upon reassessment she states that she feels better and is ready for discharge. - Vital Signs Vital signs: Temp Pulse Resp BP Pulse Ox 98.7 F 66 18 128/81 H 96 11/01/18 15:35 11/01/18 15:35 11/01/18 18:01 11/01/18 18:00 11/01/18 18:01 - Laboratory Laboratory results interpreted by me: Patient had labs done this morning by her family physician. Notably her magnesium level is 1.4. She is referred here by her physician to receive magnesium. Discharge - Discharge Clinical Impression: Hypomagnesemia, Morbid obesity with BMI of 45.0-49.9, adult Condition: Fair Disposition: HOME, SELF-CARE Instructions: Weakness (OM) Prescriptions: Tramadol HCl [Ultram 50 mg Tablet] 50 mg PO Q4HP PRN #15 tab PRN Reason: Referrals: HERO GLASER MD [Primary Care Provider] - Follow up as needed
[2018-11-01 19:11] VITALS: BP 120/72
== END 2018-11-01 19:11 | disposition home or self-care (01) ==
LOC: ER 15:26
DX: E83.42 Hypomagnesemia (principal); E66.01 Morbid (severe) obesity due to excess calories; Z68.42 Body mass index [BMI] 45.0-49.9, adult; R53.81 Other malaise; I25.10 Atherosclerotic heart disease of native coronary artery without angina pectoris; E78.00 Pure hypercholesterolemia, unspecified; I10 Essential (primary) hypertension; J44.9 Chronic obstructive pulmonary disease, unspecified; E11.9 Type 2 diabetes mellitus without complications; Z90.710 Acquired absence of both cervix and uterus
CPT/HCPCS: 99283; 96365; J3475

== ENCOUNTER → 2018-11-01 | Outpatient (CLI) | payer OTHER ==
[2018-11-01 09:32] LABS: ABSOLUTE BASOPHILS # (AUTO) 0.1 10^3/uL (0.0-0.2); ABSOLUTE EOSINOPHILS # (AUTO) 0.1 10^3/uL (0.0-0.6); ABSOLUTE LYMPHOCYTES (AUTO) 2.3 10^3/uL (0.5-4.7); ABSOLUTE MONOCYTES (AUTO) 0.8 10^3/uL (0.1-1.4); ABSOLUTE NEUT (AUTO) 4.2 10^3/uL (1.7-8.2); EOSINOPHILS % (AUTO) 1.5 % (0-6); HEMATOCRIT 32.8 % (36.0-47.0); HEMOGLOBIN 10.4 g/dL (12.0-15.5); LYMPHOCYTES % (AUTO) 30.9 % (13-45); MEAN CORPUSCULAR HEMOGLOBIN 24.3 pg (27.0-33.4); MEAN CORPUSCULAR HGB CONC 31.7 g/dL (32.0-36.0); MEAN CORPUSCULAR VOLUME 77 fl (80-97); MONOCYTES % (AUTO) 10.4 % (3-13); PLATELET COUNT 274 10^3/uL (150-450); RED BLOOD COUNT 4.27 10^6/uL (3.72-5.28); RED CELL DISTRIBUTION WIDTH 17.9 % (11.5-14.0); SEGMENTED NEUTROPHILS % (AUTO) 56.2 % (42-78); TOTAL CELLS COUNTED % (AUTO) 100 %; WHITE BLOOD COUNT 7.5 10^3/uL (4.0-10.5)
[2018-11-01 10:01] LABS: ANION GAP 8 (5-19); BLOOD UREA NITROGEN 26 mg/dL (7-20); CARBON DIOXIDE 33 mmol/L (22-30); CHLORIDE 99 mmol/L (98-107); GLUCOSE 155 mg/dL (75-110); IRON(TIBC) 34.5 ug/dL (37-170); PHOSPHORUS 5.4 mg/dL (2.5-4.5); POTASSIUM 4.1 mmol/L (3.6-5.0)
[2018-11-01 10:29] LABS: FERRITIN 9.27 ng/mL (11.1-264.0)
[2018-11-02 11:12] LABS: ADD MANUAL MICROSCOPIC YES; APPEARANCE,URINE CLEAR; BILIRUBIN,URINE NEGATIVE (NEGATIVE); COLOR,URINE YELLOW; GLUCOSE, URINE NEGATIVE (NEGATIVE); KETONES,URINE NEGATIVE (NEGATIVE); LEUKOCYTE ESTERASE,URINE TRACE (NEGATIVE); NITRITE,URINE NEGATIVE (NEGATIVE); PROTEIN,URINE NEGATIVE (NEGATIVE); URINE SPECIFIC GRAVITY 1.013; UROBILINOGEN,URINE NEGATIVE mg/dL (<2.0)
[2018-11-02 11:19] LABS: BACTERIA,URINE 2+ /HPF; HYALINE CASTS, URINE 0-1 /LPF
[2018-11-03 10:36] LABS: CREATININE URINE 144.4 mg/dL (Not Estab.); MICROALBUMIN URINE 8.1 ug/mL (Not Estab.)
== END ==
LOC: OD 08:39
PROVIDERS: ATTEND Internal Medicine Nephrology
DX: I12.9 Hypertensive chronic kidney disease with stage 1 through stage 4 chronic kidney disease, or unspecified chronic kidney disease (principal); N18.2 Chronic kidney disease, stage 2 (mild); E11.22 Type 2 diabetes mellitus with diabetic chronic kidney disease; E83.52 Hypercalcemia; R80.9 Proteinuria, unspecified; E55.9 Vitamin D deficiency, unspecified
CPT/HCPCS: 36415; 80069; 81001; 82043; 82306; 82570; 82728; 83540; 83550; 83735; 83970; 85025

== ENCOUNTER 2018-11-14 10:56 | Emergency (ER) | payer OTHER ==
--- NOTE | 2018-11-14 11:35 | ER Document Report ---
ED Medical Screen (RME) - General Chief Complaint: Abnormal Lab Results Stated Complaint: ABNORMAL LABS Time Seen by Provider: 11/14/18 11:26 Primary Care Provider: BISHOP WILEY MD [Primary Care Provider] - Follow up as needed Notes: Patient is a 58-year-old female with a history of thyroidectomy who was sent to the emergency department with a low calcium level. Patient states she had blood drawn by Dr. Wiley today at [facility] and was called to come to the emergency department for hypocalcemia. Patient does take a calcium supplement. Patient states she feels like she is having a gout flare to the left ankle and left foot which is the only area where she is currently having pain. Patient denies chest pain but does report some shortness of breath. TRAVEL OUTSIDE OF THE [place] IN LAST 30 DAYS: No - Related Data Allergies/Adverse Reactions: aspirin [Aspirin] Allergy (Severe, Verified 11/14/18 10:59) n and v etodolac [From Lodine] Allergy (Severe, Verified 11/14/18 10:59) Hives oxycodone HCl [From Percocet] Allergy (Severe, Verified 11/14/18 10:59) itching simvastatin [Simvastatin] Allergy (Severe, Verified 11/14/18 10:59) cramping Sulfa (Sulfonamide Antibiotics) Allergy (Severe, Verified 11/14/18 10:59) pain sulfamethoxazole [From Septra] Allergy (Severe, Verified 11/14/18 10:59) pain triamterene [From Maxzide] Allergy (Severe, Verified 11/14/18 10:59) unsure trimethoprim [From Septra] Allergy (Severe, Verified 11/14/18 10:59) pain Past Medical History - Past Medical History Cardiac Medical History: Reports: Hx Coronary Artery Disease, Hx Hypercholesterolemia - hx of, Hx Hypertension - on meds, Hx Peripheral Vascular Disease, Hx Heart Murmur Denies: Hx Atrial Fibrillation, Hx Congestive Heart Failure, Hx Heart Attack, Hx Pulmonary Embolism Pulmonary Medical History: Reports: Hx Asthma - on meds, Hx COPD - on meds, Hx Pneumonia - hx of, Hx Sleep Apnea - cpap Denies: Hx Bronchitis, Hx Respiratory Failure, Hx Tuberculosis Neurological Medical History: Denies: Hx Cerebrovascular Accident, Hx Seizures Endocrine Medical History: Reports: Hx Diabetes Mellitus Type 2, Hx Hyperthyroidism - goiter. Denies: Hx Graves' Disease, Hx Hypothyroidism Renal/ Medical History: Denies: Hx End Stage Renal Disease, Hx Kidney Stones, Hx Ovarian Cysts, Hx Peritoneal Dialysis, Hx Pelvic Inflammatory Disease Malignancy Medical History: Denies: Hx Breast Cancer, Hx Cervical Cancer, Hx Lung Cancer, Hx Ovarian Cancer GI Medical History: Reports: Hx Gastroesophageal Reflux Disease - on meds. Denies: Hx Crohn's Disease, Hx Hiatal Hernia, Hx Irritable Bowel, Hx Liver Failure, Hx Pancreatitis, Hx Ulcer Musculoskeltal Medical History: Reports Hx Arthritis - on meds, Denies Hx Fibromyalgia, Denies Hx Multiple Sclerosis, Denies Hx Muscular Dystrophy, Denies Hx Systemic Lupus Erythematosus Psychiatric Medical History: Reports: Hx Depression Denies: Hx Bipolar Disorder, Hx Dementia, Hx Post Traumatic Stress Disorder, Hx Schizophrenia Traumatic Medical History: Reports: Hx Fractures Past Surgical History: Reports: Hx Hysterectomy, Hx Thyroid Surgery. Denies: Hx Appendectomy, Hx Bowel Surgery, Hx Section, Hx Cholecystectomy, Hx Colostomy, Hx Coronary Artery Bypass Graft, Hx Gastric Bypass Surgery, Hx Herniorrhaphy, Hx Mastectomy, Hx Pacemaker, Hx Tonsillectomy, Hx Tubal Ligation - Immunizations Hx Diphtheria, Pertussis, Tetanus Vaccination: Yes Physical Exam - Vital signs Vitals: Temp Pulse BP Pulse Ox 98.6 F 86 144/69 H 96 11/14/18 11:11/14/18 11:11/14/18 11:11/14/18 11:00 - Abdominal Inspection: Obese Distension: No distension Bowel sounds: Normal Tenderness: Nontender Organomegaly: No organomegaly Course - Re-evaluation Re-evalutation: 11/14/18 11:35 I have greeted and performed a rapid initial assessment of this patient. A comprehensive ED assessment and evaluation of the patient, analysis of test results and completion of the medical decision making process will be conducted by additional ED providers. - Vital Signs Vital signs: Temp Pulse Resp BP Pulse Ox 98.6 F 86 144/69 H 96 11/14/18 11:00 11/14/18 11:00 11/14/18 11:11/14/18 11:00 Doctor's Discharge - Discharge Referrals: BISHOP WILEY MD [Primary Care Provider] - Follow up as needed
[2018-11-14] MEDS ORDERED: METHYLPREDNISOLONE INJ 125 MG/2 ML SDV IV ONE (11:39)
[2018-11-14] MEDS ORDERED: CALCIUM GLUCONATE 2,000 MG in DEXTROSE 5%-WATER 100 ML IV ONE (11:47)
[2018-11-14 11:59] LABS: ABSOLUTE LYMPHOCYTES (AUTO) 1.6 10^3/uL (0.5-4.7); ABSOLUTE MONOCYTES (AUTO) 0.6 10^3/uL (0.1-1.4); ABSOLUTE NEUT (AUTO) 5.9 10^3/uL (1.7-8.2); BASOPHILS % (AUTO) 0.6 % (0-2); EOSINOPHILS % (AUTO) 0.4 % (0-6); HEMATOCRIT 32.4 % (36.0-47.0); HEMOGLOBIN 10.2 g/dL (12.0-15.5); LYMPHOCYTES % (AUTO) 19.2 % (13-45); MEAN CORPUSCULAR HEMOGLOBIN 24.4 pg (27.0-33.4); MEAN CORPUSCULAR HGB CONC 31.4 g/dL (32.0-36.0); MEAN CORPUSCULAR VOLUME 78 fl (80-97); MONOCYTES % (AUTO) 7.1 % (3-13); PLATELET COUNT 254 10^3/uL (150-450); RED BLOOD COUNT 4.17 10^6/uL (3.72-5.28); RED CELL DISTRIBUTION WIDTH 18.9 % (11.5-14.0); SEGMENTED NEUTROPHILS % (AUTO) 72.7 % (42-78); TOTAL CELLS COUNTED % (AUTO) 100 %; WHITE BLOOD COUNT 8.1 10^3/uL (4.0-10.5)
--- NOTE | 2018-11-14 12:01 | ER Document Report ---
Entered by REYNALDO HOLLINGSWORTH SCRIBE 11/14/18 1138 Acting as scribe for:TRISTEN BLAKE MD ED General - General Chief Complaint: Abnormal Lab Results Stated Complaint: ABNORMAL LABS Time Seen by Provider: 11/14/18 11:26 Primary Care Provider: BISHOP WILEY MD [ACTIVE STAFF] - Follow up as needed Mode of Arrival: Ambulatory Information source: Patient Notes: Patient is a 58 year old female that presents to the emergency department today with complaints of low calcium and magnesium on outpatient labs from earlier today. Patient also complains of left ankle pain for the last x3 days which she states is identical to her previous gout attacks. Patient states that she started taking her colchicine two days ago but she feels as if she started it a little too late. TRAVEL OUTSIDE OF THE [place] IN LAST 30 DAYS: No - Related Data Allergies/Adverse Reactions: aspirin [Aspirin] Allergy (Severe, Verified 11/14/18 10:59) n and v etodolac [From Lodine] Allergy (Severe, Verified 11/14/18 10:59) Hives oxycodone HCl [From Percocet] Allergy (Severe, Verified 11/14/18 10:59) itching simvastatin [Simvastatin] Allergy (Severe, Verified 11/14/18 10:59) cramping Sulfa (Sulfonamide Antibiotics) Allergy (Severe, Verified 11/14/18 10:59) pain sulfamethoxazole [From Septra] Allergy (Severe, Verified 11/14/18 10:59) pain triamterene [From Maxzide] Allergy (Severe, Verified 11/14/18 10:59) unsure trimethoprim [From Septra] Allergy (Severe, Verified 11/14/18 10:59) pain Past Medical History - General Information source: Patient - Social History Smoking Status: Current Every Day Smoker Cigarette use (# per day): Yes Frequency of alcohol use: None Drug Abuse: None Lives with: Family Family History: Reviewed & Not Pertinent Patient has suicidal ideation: No Patient has homicidal ideation: No - Past Medical History Cardiac Medical History: Reports: Hx Coronary Artery Disease, Hx Hypercholesterolemia - hx of, Hx Hypertension - on meds, Hx Peripheral Vascular Disease, Hx Heart Murmur Pulmonary Medical History: Reports: Hx Asthma - on meds, Hx COPD - on meds, Hx Pneumonia - hx of, Hx Sleep Apnea - cpap Endocrine Medical History: Reports: Hx Diabetes Mellitus Type 2, Hx Hyperthyroidism - goiter GI Medical History: Reports: Hx Gastroesophageal Reflux Disease - on meds Musculoskeletal Medical History: Reports Hx Arthritis - on meds Psychiatric Medical History: Reports: Hx Depression Traumatic Medical History: Reports: Hx Fractures Past Surgical History: Reports: Hx Hysterectomy, Hx Thyroid Surgery - Immunizations Hx Diphtheria, Pertussis, Tetanus Vaccination: Yes Hx Pneumococcal Vaccination: 03/28/10 Review of Systems - Review of Systems Constitutional: See HPI, Other - low calcium and magnesium on outpatient labs EENT: No symptoms reported Cardiovascular: No symptoms reported Respiratory: No symptoms reported Gastrointestinal: No symptoms reported Genitourinary: No symptoms reported Female Genitourinary: No symptoms reported Musculoskeletal: See HPI, Joint pain - left ankle pain Skin: No symptoms reported Hematologic/Lymphatic: No symptoms reported Neurological/Psychological: No symptoms reported -: Yes All other systems reviewed and negative Physical Exam - Vital signs Vitals: Temp Pulse BP Pulse Ox 98.6 F 86 144/69 H 96 11/14/18 11:00 11/14/18 11:00 11/14/18 11:00 11/14/18 11:00 - Notes Notes: Physical Exam: General: Alert, appears well. Obese. HEENT: Normocephalic. Atraumatic. PERRL. Extraocular movements intact. Oropharynx clear. Neck: Supple. Non-tender. Respiratory: No respiratory distress. Clear and equal breath sounds bilaterally. Cardiovascular: Regular rate and rhythm. Abdominal: Obese. Non-tender. No distension. Normal Bowel Sounds. Back: Non-tender. No deformity or step off. Extremities: Moves all four extremities. Upper extremities: Normal inspection. Normal ROM. Lower extremities: Normal ROM. Left ankle is swollen and tender with palpation. 1st metatarsal is non-tender. Neurological: Normal cognition. AAOx4. Normal speech. Psychological: Normal affect. Normal Mood. Skin: Warm. Dry. Normal color. Course - Vital Signs Vital signs: Temp Pulse Resp BP Pulse Ox 98.6 F 86 22 H 125/65 97 11/14/18 11:00 11/14/18 11:00 11/14/18 13:01 11/14/18 13:01 11/14/18 13:01 - Laboratory Result Diagrams: 11/14/18 11:43 11/14/18 11:43 Laboratory results interpreted by me: 11/14/18 11/14/18 11:43 11:43 Hgb 10.2 L Hct 32.4 L MCV 78 L MCH 24.4 L MCHC 31.4 L RDW 18.9 H Carbon Dioxide 32 H Est GFR ( Amer) 58 L Est GFR (Non-Af Amer) 48 L Glucose 247 H Uric Acid 9.4 H Calcium 7.1 L Magnesium 1.3 L - EKG Interpretation by Me EKG shows normal: Sinus rhythm, [place], QRS Complexes. abnormal: Intervals - Borderline prolonged QT interval, ST-T Waves - Diffuse borderline T wave abnormalities Rate: Normal - 81 Rhythm: NSR When compared to previous EKG there are: No significant change Discharge - Discharge Clinical Impression: Hypocalcemia, Hypomagnesemia Gout Qualifiers: Gout site: ankle Gout etiology: unspecified cause Chronicity: acute Laterality: left Qualified Code(s): M10.9 - Gout, unspecified Condition: Stable Disposition: HOME, SELF-CARE Additional Instructions: Continue taking your calcium and magnesium supplements. Try to limit walking and elevate your left foot is much as possible. Continue taking the probenecid/colchicine for your gout attack. Follow-up with your primary care provider if your gout is not improving. Dr. Wiley's office will contact you next week to get repeat lab work done. RETURN TO THE EMERGENCY ROOM IF ANY NEW OR WORSENING SYMPTOMS. Referrals: BISHOP WILEY MD [ACTIVE STAFF] - Follow up as needed HERO GLASER MD [Primary Care Provider] - Follow up as needed Scribe Attestation: 11/14/18 11:46 I personally performed the services described in the documentation, reviewed and edited the documentation which was dictated to the scribe in my presence, and it accurately records my words and actions. I personally performed the services described in the documentation, reviewed and edited the documentation which was dictated to the scribe in my presence, and it accurately records my words and actions.
[2018-11-14 12:23] LABS: ALKALINE PHOSPHATASE 92 U/L (38-126); ANION GAP 12 (5-19); ASPARTATE AMINO TRANSFERASE 32 U/L (14-36); BILIRUBIN,DIRECT 0.3 mg/dL (0.0-0.4); BILIRUBIN,TOTAL 0.6 mg/dL (0.2-1.3); BLOOD UREA NITROGEN 15 mg/dL (7-20); CALCIUM 7.1 mg/dL (8.4-10.2); CARBON DIOXIDE 32 mmol/L (22-30); CHLORIDE 99 mmol/L (98-107); GLUCOSE 247 mg/dL (75-110); POTASSIUM 3.6 mmol/L (3.6-5.0); TOTAL PROTEIN 7.4 g/dL (6.3-8.2); URIC ACID 9.4 mg/dL (2.5-7.5)
[2018-11-14] MEDS ORDERED: MAGNESIUM SULFATE INJ 8 MEQ/2 ML IM ONE (12:36)
[2018-11-14 14:38] VITALS: BP 132/81
--- NOTE | 2018-11-14 20:00 | EKG REPORT ---
SEVERITY:- BORDERLINE ECG - SINUS RHYTHM BORDERLINE T ABNORMALITIES, DIFFUSE LEADS BORDERLINE PROLONGED QT INTERVAL : Confirmed by: Jenny Hensley MD 14-Nov-2018 20:00:20
== END 2018-11-14 14:38 | disposition home or self-care (01) ==
LOC: ER 10:56
DX: E83.51 Hypocalcemia (principal); E83.42 Hypomagnesemia; M10.9 Gout, unspecified; M25.572 Pain in left ankle and joints of left foot; R94.31 Abnormal electrocardiogram [ECG] [EKG]; I25.10 Atherosclerotic heart disease of native coronary artery without angina pectoris; I10 Essential (primary) hypertension; J44.9 Chronic obstructive pulmonary disease, unspecified; E11.51 Type 2 diabetes mellitus with diabetic peripheral angiopathy without gangrene; F17.210 Nicotine dependence, cigarettes, uncomplicated; Z88.8 Allergy status to other drugs, medicaments and biological substances; Z88.5 Allergy status to narcotic agent; Z88.2 Allergy status to sulfonamides; Z88.1 Allergy status to other antibiotic agents
CPT/HCPCS: 93005; 36415; 83735; 84550; 85025; 87070; 93010; J0610; J3475; J2930; J7060; 96372; 96374; 96375; 99283

== ENCOUNTER → 2018-11-14 | Outpatient (CLI) | payer OTHER ==
[2018-11-14 09:50] LABS: ANION GAP 15 (5-19); BLOOD UREA NITROGEN 14 mg/dL (7-20); CARBON DIOXIDE 28 mmol/L (22-30); CHLORIDE 99 mmol/L (98-107); GLUCOSE 182 mg/dL (75-110); POTASSIUM 3.9 mmol/L (3.6-5.0)
[2018-11-14 10:05] LABS: CALCIUM 6.8 mg/dL (8.4-10.2)
[2018-11-16 11:05] LABS: ANION GAP 11 (5-19); BLOOD UREA NITROGEN 25 mg/dL (7-20); CALCIUM 7.8 mg/dL (8.4-10.2); CARBON DIOXIDE 32 mmol/L (22-30); CHLORIDE 101 mmol/L (98-107); GLUCOSE 155 mg/dL (75-110); POTASSIUM 4.1 mmol/L (3.6-5.0)
== END ==
LOC: OD 08:50
PROVIDERS: ATTEND Internal Medicine Nephrology
DX: N17.9 Acute kidney failure, unspecified (principal); N18.2 Chronic kidney disease, stage 2 (mild); E61.1 Iron deficiency; E61.2 Magnesium deficiency
CPT/HCPCS: 36415; 80048; 83735

== ENCOUNTER → 2018-12-04 | Outpatient (CLI) | payer OTHER ==
[2018-12-04 10:36] LABS: ANION GAP 11 (5-19); BLOOD UREA NITROGEN 20 mg/dL (7-20); CARBON DIOXIDE 32 mmol/L (22-30); CHLORIDE 97 mmol/L (98-107); GLUCOSE 201 mg/dL (75-110); POTASSIUM 4.2 mmol/L (3.6-5.0)
== END ==
LOC: OD 09:32
PROVIDERS: ATTEND Internal Medicine Nephrology
DX: E83.51 Hypocalcemia (principal)
CPT/HCPCS: 36415; 80048

== ENCOUNTER → 2019-02-19 | Outpatient (CLI) | payer OTHER ==
[2019-02-19 08:50] LABS: ABSOLUTE BASOPHILS # (AUTO) 0.1 10^3/uL (0.0-0.2); ABSOLUTE EOSINOPHILS # (AUTO) 0.1 10^3/uL (0.0-0.6); ABSOLUTE MONOCYTES (AUTO) 0.7 10^3/uL (0.1-1.4); ABSOLUTE NEUT (AUTO) 4.9 10^3/uL (1.7-8.2); BASOPHILS % (AUTO) 0.9 % (0-2); EOSINOPHILS % (AUTO) 1.6 % (0-6); HEMATOCRIT 36.1 % (36.0-47.0); HEMOGLOBIN 11.5 g/dL (12.0-15.5); LYMPHOCYTES % (AUTO) 25.3 % (13-45); MEAN CORPUSCULAR HEMOGLOBIN 26.7 pg (27.0-33.4); MEAN CORPUSCULAR HGB CONC 31.9 g/dL (32.0-36.0); MEAN CORPUSCULAR VOLUME 84 fl (80-97); MONOCYTES % (AUTO) 9.6 % (3-13); PLATELET COUNT 282 10^3/uL (150-450); RED BLOOD COUNT 4.31 10^6/uL (3.72-5.28); RED CELL DISTRIBUTION WIDTH 18.1 % (11.5-14.0); SEGMENTED NEUTROPHILS % (AUTO) 62.6 % (42-78); TOTAL CELLS COUNTED % (AUTO) 100 %; WHITE BLOOD COUNT 7.8 10^3/uL (4.0-10.5)
[2019-02-19 09:09] LABS: ALBUMIN 3.9 g/dL (3.5-5.0); ANION GAP 10 (5-19); BLOOD UREA NITROGEN 23 mg/dL (7-20); CALCIUM 8.1 mg/dL (8.4-10.2); CARBON DIOXIDE 31 mmol/L (22-30); CHLORIDE 102 mmol/L (98-107); GLUCOSE 163 mg/dL (75-110); IRON(TIBC) 52.9 ug/dL (37-170); PHOSPHORUS 4.7 mg/dL (2.5-4.5); POTASSIUM 4.2 mmol/L (3.6-5.0)
[2019-02-19 14:11] LABS: APPEARANCE,URINE TURBID; BILIRUBIN,URINE NEGATIVE (NEGATIVE); COLOR,URINE YELLOW; GLUCOSE, URINE NEGATIVE (NEGATIVE); KETONES,URINE NEGATIVE (NEGATIVE); PROTEIN,URINE 100 mg/dL (NEGATIVE); URINE SPECIFIC GRAVITY 1.017; UROBILINOGEN,URINE NEGATIVE mg/dL (<2.0)
[2019-02-20 12:37] LABS: CREATININE URINE 129.8 mg/dL (Not Estab.); MICROALBUMIN URINE 370.8 ug/mL (Not Estab.)
== END ==
LOC: OD 08:13
PROVIDERS: ATTEND Internal Medicine Nephrology
DX: N17.9 Acute kidney failure, unspecified (principal); N18.2 Chronic kidney disease, stage 2 (mild); E61.1 Iron deficiency; E61.2 Magnesium deficiency; N39.0 Urinary tract infection, site not specified; R30.9 Painful micturition, unspecified
CPT/HCPCS: 36415; 80069; 81001; 82043; 82306; 82570; 82728; 83540; 83550; 83735; 83970; 85025; 87086; 87088

== ENCOUNTER 2019-06-19 14:36 | Inpatient (IN) | payer OTHER ==
[2019-06-19 15:13] LABS: ABSOLUTE LYMPHOCYTES (AUTO) 2.1 10^3/uL (0.5-4.7); ABSOLUTE MONOCYTES (AUTO) 0.7 10^3/uL (0.1-1.4); ABSOLUTE NEUT (AUTO) 7.1 10^3/uL (1.7-8.2); BASOPHILS % (AUTO) 0.5 % (0-2); HEMATOCRIT 40.1 % (36.0-47.0); LYMPHOCYTES % (AUTO) 20.7 % (13-45); MEAN CORPUSCULAR HEMOGLOBIN 28.3 pg (27.0-33.4); MEAN CORPUSCULAR HGB CONC 32.3 g/dL (32.0-36.0); MEAN CORPUSCULAR VOLUME 88 fl (80-97); MONOCYTES % (AUTO) 7.4 % (3-13); PLATELET COUNT 295 10^3/uL (150-450); RED BLOOD COUNT 4.58 10^6/uL (3.72-5.28); RED CELL DISTRIBUTION WIDTH 17.6 % (11.5-14.0); SEGMENTED NEUTROPHILS % (AUTO) 71.4 % (42-78); TOTAL CELLS COUNTED % (AUTO) 100 %; WHITE BLOOD COUNT 9.9 10^3/uL (4.0-10.5)
[2019-06-19 15:32] LABS: ALBUMIN 4.4 g/dL (3.5-5.0); ALKALINE PHOSPHATASE 133 U/L (38-126); ANION GAP 13 (5-19); ASPARTATE AMINO TRANSFERASE 124 U/L (14-36); BILIRUBIN,DIRECT 0.4 mg/dL (0.0-0.4); BILIRUBIN,TOTAL 0.8 mg/dL (0.2-1.3); BLOOD UREA NITROGEN 27 mg/dL (7-20); CALCIUM 7.4 mg/dL (8.4-10.2); CARBON DIOXIDE 31 mmol/L (22-30); CHLORIDE 98 mmol/L (98-107); GLUCOSE 214 mg/dL (75-110); TOTAL PROTEIN 8.7 g/dL (6.3-8.2)
[2019-06-19] MEDS ORDERED: IPRATROPIUM/ALBUTEROL 0.5-2.5 MG/3 ML AMPUL NEB ONE (15:49)
--- NOTE | 2019-06-19 15:54 | ER Document Report ---
ED General - General Chief Complaint: Shortness Of Breath Stated Complaint: DIFFICULTY BREATHING Primary Care Provider: BISHOP WILEY MD [Primary Care Provider] - Follow up as needed Notes: The patient is a 59-year-old -[place] female with past medical history of COPD and asthma who presents to the emergency department with a chief complaint of shortness of breath over the past week. She states every time this time of year she gets a exacerbation of her COPD. She states her doctor is considering outpatient allergy testing to see if that is the exacerbating agent. She reports she was seen recently placed on cefdinir and 20 mg of prednisone daily and has been utilizing her home nebulizer, albuterol and steroid inhaler without any significant improvement. She states she is began the new medicine cefdinir and prednisone oral on Tuesday. She went to see her doctor today for follow-up and was sent here for further evaluation and management. She denies any fever chills or night sweats. Denies any known sick contacts or recent travel. No chest pain. TRAVEL OUTSIDE OF THE [place] IN LAST 30 DAYS: No - Related Data Allergies/Adverse Reactions: aspirin [Aspirin] Allergy (Severe, Verified 06/19/19 14:41) n and v etodolac [From Lodine] Allergy (Severe, Verified 06/19/19 14:41) Hives oxycodone HCl [From Percocet] Allergy (Severe, Verified 06/19/19 14:41) itching simvastatin [Simvastatin] Allergy (Severe, Verified 06/19/19 14:41) cramping Sulfa (Sulfonamide Antibiotics) Allergy (Severe, Verified 06/19/19 14:41) pain sulfamethoxazole [From Septra] Allergy (Severe, Verified 06/19/19 14:41) pain triamterene [From Maxzide] Allergy (Severe, Verified 06/19/19 14:41) unsure trimethoprim [From Septra] Allergy (Severe, Verified 06/19/19 14:41) pain Past Medical History - Social History Smoking Status: Current Every Day Smoker Family History: Reviewed & Not Pertinent Patient has suicidal ideation: No Patient has homicidal ideation: No - Past Medical History Cardiac Medical History: Reports: Hx Coronary Artery Disease, Hx Hypercholesterolemia, Hx Hypertension, Hx Peripheral Vascular Disease, Hx Heart Murmur Denies: Hx Atrial Fibrillation, Hx Congestive Heart Failure, Hx Heart Attack, Hx Pulmonary Embolism Pulmonary Medical History: Reports: Hx Asthma, Hx COPD, Hx Pneumonia, Hx Sleep Apnea - cpap Denies: Hx Bronchitis, Hx Respiratory Failure, Hx Tuberculosis Neurological Medical History: Denies: Hx Cerebrovascular Accident, Hx Seizures, Hx Parkinson's Disease Endocrine Medical History: Reports: Hx Diabetes Mellitus Type 2, Hx Hyperthyroidism - goiter. Denies: Hx Graves' Disease, Hx Hypothyroidism Renal/ Medical History: Denies: Hx End Stage Renal Disease, Hx Kidney Stones, Hx Ovarian Cysts, Hx Peritoneal Dialysis, Hx Pelvic Inflammatory Disease Malignancy Medical History: Denies: Hx Breast Cancer, Hx Cervical Cancer, Hx Lung Cancer, Hx Ovarian Cancer GI Medical History: Reports: Hx Gastroesophageal Reflux Disease. Denies: Hx Crohn's Disease, Hx Hiatal Hernia, Hx Irritable Bowel, Hx Liver Failure, Hx Pancreatitis, Hx Ulcer Musculoskeletal Medical History: Reports Hx Arthritis, Denies Hx Fibromyalgia, Denies Hx Multiple Sclerosis, Denies Hx Muscular Dystrophy, Denies Hx Systemic Lupus Erythematosus Psychiatric Medical History: Reports: Hx Depression Denies: Hx Bipolar Disorder, Hx Dementia, Hx Post Traumatic Stress Disorder, Hx Schizophrenia Traumatic Medical History: Reports: Hx Fractures Past Surgical History: Reports: Hx Hysterectomy, Hx Thyroid Surgery. Denies: Hx Appendectomy, Hx Bowel Surgery, Hx Section, Hx Cholecystectomy, Hx Colostomy, Hx Coronary Artery Bypass Graft, Hx Gastric Bypass Surgery, Hx Herniorrhaphy, Hx Mastectomy, Hx Pacemaker, Hx Tonsillectomy, Hx Tubal Ligation - Immunizations Hx Diphtheria, Pertussis, Tetanus Vaccination: Yes Hx Pneumococcal Vaccination: 03/28/10 Review of Systems - Review of Systems Respiratory: Short of breath, Wheezing -: Yes All other systems reviewed and negative Physical Exam - Vital signs Vitals: Temp Pulse Resp BP Pulse Ox 98.6 F 72 19 157/70 H 95 06/19/19 14:36 06/19/19 14:36 06/19/19 14:36 06/19/19 14:36 06/19/19 14:36 - General General appearance: Appears well, Alert In distress: None - HEENT Head: Normocephalic, Atraumatic Eyes: Normal Conjunctiva: Normal Extraocular movements intact: Yes Eyelashes: Normal Pupils: PERRL Ears: Normal External canal: Normal Tympanic membrane: Normal Sinus: Normal Nasal: Normal Mouth/Lips: Normal Mucous membranes: Normal Pharynx: Normal Neck: Normal - Respiratory Respiratory status: No respiratory distress Chest status: Nontender Breath sounds: Normal, Wheezing Chest palpation: Normal - Cardiovascular Rhythm: Regular Heart sounds: Normal auscultation - Extremities General upper extremity: Normal inspection, Nontender, Normal color, Normal ROM, Normal temperature General lower extremity: Normal inspection, Nontender, Normal color, Normal ROM, Normal temperature, Normal weight bearing. No: Kinza's sign - Neurological Neuro grossly intact: Yes Cognition: Normal Orientation: AAOx4 Lili Coma Scale Eye Opening: Spontaneous [place] Coma Scale Verbal: Oriented [place] Coma Scale Motor: Obeys Commands [place] Coma Scale Total: 15 Speech: Normal - Psychological Associated symptoms: Normal affect, Normal mood - Skin Skin Temperature: Warm Skin Moisture: Dry Skin Color: Normal Course - Re-evaluation Re-evalutation: 06/19/19 18:12 Reevaluation at this time status post DuoNeb, Solu-Medrol and magnesium, patient is still very coarse and her breath sounds, wheezes and rhonchi throughout. She is on 2 L nasal cannula O2. We will remove the patient from the oxygen and walker to see if she desats. At this time I am not sure that it is advisable hurts for her to be discharged home. Pending walk test will call hospitalist. 06/19/19 18:[address] Bai, he will come evaluate the patient for admission at this time. The patient was taken off of oxygen and walked, she desatted to about 90, respirations increased to 35 and she became dizzy. Her breath sounds are still coarse throughout. She does have an increased work of breathing that is obvious. Feel she is on stable for discharge home. Should be evaluated by the hospitalist for admission. - Vital Signs Vital signs: Temp Pulse Resp BP Pulse Ox 98.6 F 72 21 H 130/80 H 92 06/19/19 14:36 06/19/19 14:36 06/19/19 17:01 06/19/19 17:01 06/19/19 17:01 - Laboratory Result Diagrams: 06/19/19 14:51 06/19/19 14:51 Laboratory results interpreted by me: 06/19/19 06/19/19 14:51 14:51 RDW 17.6 H Carbon Dioxide 31 H BUN 27 H Est GFR (MDRD) Non-Af 50 L Glucose 214 H Calcium 7.4 L AST 124 H ALT 94 H Alkaline Phosphatase 133 H Total Protein 8.7 H Discharge - Discharge Clinical Impression: COPD exacerbation Condition: Stable Disposition: ADMITTED OBSERVATION Admitting Provider: Bhumika (Hospitalist) Unit Admitted: Telemetry Referrals: BISHOP WILEY MD [Primary Care Provider] - Follow up as needed
--- NOTE | 2019-06-19 16:07 | RADIOLOGY REPORT (SQ) ---
EXAM DESCRIPTION: CHEST 2 VIEWS COMPLETED DATE/TIME: 06/19/2019 3:56 pm REASON FOR STUDY: cough, wheeze COMPARISON: 07/24/2018 EXAM PARAMETERS: NUMBER OF VIEWS: two views TECHNIQUE: Digital Frontal and Lateral radiographic views of the chest acquired. RADIATION DOSE: NA LIMITATIONS: none FINDINGS: LUNGS AND PLEURA: Pulmonary vascular prominence. No pulmonary edema. No mass, infiltrate , or effusion. MEDIASTINUM AND HILAR STRUCTURES: No masses or contour abnormalities. HEART AND VASCULAR STRUCTURES: Borderline heart size. BONES: No acute findings. HARDWARE: None in the chest. OTHER: No other significant finding. IMPRESSION: Borderline heart size with pulmonary vascular congestion but no chip pulmonary edema. TECHNICAL DOCUMENTATION: JOB ID: [id number] 2010 [employer]- All Rights Reserved Reading location - IP/workstation name: [email or web address]
[2019-06-19] MEDS: MAGNESIUM SULFATE/D5W 1 GM/100 ML RTUPB IV SCH ×2 (16:30→17:14)
[2019-06-19] MEDS ORDERED: GLUCAGON,HUMAN RECOMB 1 MG INJ IM PRN (18:51)
[2019-06-19] MEDS ORDERED: DEXTROSE 40% GEL 15 GM TUBE PO PRN ×2 (18:51)
[2019-06-19] MEDS ORDERED: DEXTROSE 50%-WATER 25 GM/50 ML DISP.SYRIN IV PRN ×2 (18:51)
[2019-06-19] MEDS ORDERED: AZITHROMYCIN INJ 500 MG VIAL IV SCH (19:00)
--- NOTE | 2019-06-19 19:02 | EKG REPORT ---
SEVERITY:- BORDERLINE ECG - SINUS RHYTHM BORDERLINE T ABNORMALITIES, ANTERIOR LEADS BORDERLINE PROLONGED QT INTERVAL : Confirmed by: Hernán Jordan MD 19-Jun-2019 19:01:44
--- NOTE | 2019-06-19 19:05 | PDOC H&P ---
History of Present Illness Admission Date/PCP: BISHOP WILEY MD Patient complains of: Shortness of breath History of Present Illness: PORTER SCHROEDER is a 59 year old female with a history of type 2 diabetes mellitus, asthma, hypertension, angina, who presents to the hospital with complaints of shortness of breath going on for the past few days. Symptoms s tarted on last week. Patient denies any sick exposures. Patient denies any fevers. She does have increased cough with not much sputum production. Patient denies any chest pain. Denies any nausea or vomiting. Patient also denies any travels recently. Admits to myalgias. States that her was sick but became sick much after she did. In the ER patient was given some nebulizer treatments without any significant improvement in her breathing. Also received magnesium sulfate. Subsequently referred to hospitalist service for admission. Past Medical History Cardiac Medical History: Reports: Coronary Artery Disease, Hyperlipidema, Hypertension, Peripheral Vascular Disease, Heart Murmur Denies: Atrial Fibrillation, Congestive Heart Failure, Myocardial Infarction, Pulmonary Embolism Pulmonary Medical History: Reports: Asthma, Chronic Obstructive Pulmonary Dis ease (COPD), Pneumonia, Sleep Apnea - cpap Denies: Bronchitis, Respiratory Failure, Tuberculosis Neurological Medical History: Denies: Seizures Endocrine Medical History: Reports: Diabetes Mellitus Type 2, Hyperthyroidism - goiter Denies: Hypothyroidism Renal/ Medical History: Denies: End Stage Renal Disease Malignancy Medical History: Denies: Breast Cancer, Cervical Cancer, Lung Cancer, Ovarian Cancer GI Medical History: Reports: Gastroesophageal Reflux Disease Denies: Crohn's Disease, Hiatal Hernia Musculoskeltal Medical History: Reports: Arthritis Denies: Fibromyalgia Psychiatric Medical History: Reports: Depression Denies: Bipolar Disorder, Dementia, Post Traumatic Stress Disorder Hematology: Past Surgical History Past Surgical History: Reports: Hysterectomy, Thyroidectomy Denies: Amputation, Appendectomy, Section, Cholecystectomy, Colostomy, Coronary Artery Bypass Graft, Gastric Bypass Surgery, Herniorrhaphy, Mastectomy, Pacemaker, Tonsillectomy, Tubal Ligation Social History Smoking Status: Current Every Day Smoker Frequency of Alcohol Use: Occasional Hx Recreational Drug Use: No Hx Prescription Drug Abuse: Yes - Advance Directive Resuscitation Status: Full Code Family History Family History: Hypertension Parental Family History Reviewed: Yes Children Family History Reviewed: NA Sibling(s) Family History Reviewed.: NA Medication/Allergy Home Medications: Albuterol Sulfate [Proventil Hfa] 2 puff IH Q6HP PRN 07/24/18 Amlodipine Besylate [Norvasc 10 mg Tablet] 10 mg PO DAILY 07/24/18 Atorvastatin Calcium [Lipitor 40 mg Tablet] 40 mg PO DAILY 07/24/18 Budesonide/Formoterol Fumarate [Symbicort HFA 80-4.5 mcg Inhaler 6.9 gm] 2 puff IH BID 07/24/18 Calcium Acetate [Phoslo 667 mg Capsule] 1,334 mg PO TID 07/24/18 Calcium Carbonate [Tums Chewable 500 mg Tab.chew] 1,000 mg PO TID 07/24/18 Duloxetine HCl [Cymbalta] 60 mg PO DAILY 07/24/18 Ergocalciferol (Vitamin D2) [Drisdol] 50,000 unit PO MOWEFR@1000 07/24/18 Furosemide [Lasix 20 mg Tablet] 40 mg PO DAILY 07/24/18 Gabapentin [Neurontin 300 mg Capsule] 300 mg PO Q8 07/24/18 Glipizide/Metformin HCl [Glipizide-Metformin 5-500 mg] 2 each PO DAILY 07/24/18 Ipratropium/Albuterol Sulfate [Duoneb 3 ml Ampul] 3 ml NEB RTQ6HP PRN 07/24/18 Levothyroxine Sodium [Synthroid 0.15 mg Tablet] 0.15 mg PO Q6AM 07/24/18 Lisinopril [Prinivil 40 mg Tablet] 40 mg PO DAILY 07/24/18 Magnesium Oxide [Mag-Ox 400 mg Tablet] 800 mg PO TID 07/24/18 Metoprolol Tartrate [Lopressor] 50 mg PO Q12 07/24/18 Montelukast Sodium [Singulair 10 mg Tablet] 10 mg PO DAILY 07/24/18 Omeprazole 40 mg PO QAM 07/24/18 Polyethylene Glycol 3350 [Miralax Powder 17 gm/Packet] 1 packet PO DAILY 07/24/18 Probenecid/Colchicine [Probenecid-Colchicine Tablet] 1 each PO BID 07/24/18 Spironolactone [Aldactone 25 mg Tablet] 25 mg PO DAILY 07/24/18 Tramadol HCl [Ultram] 50 mg PO Q6HP PRN 07/24/18 Azithromycin [Zithromax 250 mg Tablet] 500 mg PO DAILY #5 tablet 07/28/18 Tramadol HCl [Ultram 50 mg Tablet] 50 mg PO Q4HP PRN #15 tab 11/01/18 Allergies/Adverse Reactions: aspirin [Aspirin] Allergy (Severe, Verified 06/19/19 14:41) n and v etodolac [From Lodine] Allergy (Severe, Verified 06/19/19 14:41) Hives oxycodone HCl [From Percocet] Allergy (Severe, Verified 06/19/19 14:41) itching simvastatin [Simvastatin] Allergy (Severe, Verified 06/19/19 14:41) cramping Sulfa (Sulfonamide Antibiotics) Allergy (Severe, Verified 06/19/19 14:41) pain sulfamethoxazole [From Septra] Allergy (Severe, Verified 06/19/19 14:41) pain triamterene [From Maxzide] Allergy (Severe, Verified 06/19/19 14:41) unsure trimethoprim [From Septra] Allergy (Severe, Verified 06/19/19 14:41) pain Review of Systems Constitutional: ABSENT: chills, fatigue Eyes: ABSENT: visual disturbances Nose, Mouth, and Throat: ABSENT: headache(s), sore throat Cardiovascular: ABSENT: chest pain Respiratory: PRESENT: dyspnea Gastrointestinal: ABSENT: nausea, vomiting Integumentary: ABSENT: diaphoresis Neurological: ABSENT: confusion Psychiatric: ABSENT: anxiety Endocrine: PRESENT: cold intolerance Allergic/Immunologic: PRESENT: other - Denies runny nose Physical Exam Vital Signs: Temp Pulse Resp BP Pulse Ox 98.6 F 72 21 H 130/80 H 92 06/19/19 14:36 06/19/19 14:36 06/19/19 17:01 06/19/19 17:01 06/19/19 17:01 Intake & Output 06/18/19 06/19/19 06/20/19 06:59 06:59 06:59 Intake Total 73 Balance 73 Weight 112.3 kg General appearance: PRESENT: no acute distress, cooperative, morbidly obese Eye exam: PRESENT: EOMI Neck exam: ABSENT: JVD Respiratory exam: PRESENT: symmetrical, wheezes - Very significant diffuse. ABSENT: clear to auscultation steven, crackles, tachypnea, unlabored Cardiovascular exam: PRESENT: RRR, +S1, +S2. ABSENT: systolic murmur GI/Abdominal exam: PRESENT: soft. ABSENT: rebound, rigid, tenderness Extremities exam: ABSENT: pedal edema Neurological exam: PRESENT: alert, awake, oriented to person, oriented to place, oriented to time, oriented to situation Psychiatric exam: ABSENT: anxious Focused psych exam: ABSENT: pressured speech Skin exam: ABSENT: jaundice Results Laboratory Results: 06/19/19 14:51 06/19/19 14:51 06/19/19 06/19/19 14:51 14:51 WBC 9.9 RBC 4.58 Hgb 13.0 Hct 40.1 MCV 88 MCH 28.3 MCHC 32.3 RDW 17.6 H Plt Count 295 Seg Neutrophils % 71.4 Sodium 142.4 Potassium 4.0 Chloride 98 Carbon Dioxide 31 H Anion Gap 13 BUN 27 H Creatinine 1.10 Est GFR ( Amer) > 60 Glucose 214 H Calcium 7.4 L Total Bilirubin 0.8 AST 124 H Alkaline Phosphatase 133 H Total Protein 8.7 H Albumin 4.4 06/19/19 14:51 NT-Pro-B Natriuret Pep 65 Impressions: Chest X-Ray 06/19/19 15:25 IMPRESSION: Borderline heart size with pulmonary vascular congestion but no chip pulmonary edema. Assessment and Plan - Diagnosis (1) Acute asthma exacerbation Qualifiers: Asthma severity: severe Asthma persistence: persistent Qualified Code(s): J45.51 - Severe persistent asthma with (acute) exacerbation Is this a current diagnosis for this admission?: Yes Plan: Chest x-ray shows no evidence of pneumonia. BNP wnl. Active wheezing. Frequent nebs, Solu-Medrol, azithromycin (2) Acute respiratory failure with hypoxia Is this a current diagnosis for this admission?: Yes Plan: Hypoxic to 90% on room air. Patient has no history of oxygen dependence. BNP within normal limits. Hopefully hypoxia would improve with treatment of acute asthma exacerbation. Oxygen supplementation as needed to keep O2 sats over 88%. 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 Sliding scale insulin and Accu-Cheks. (4) Hypertension Qualifiers: Hypertension type: essential hypertension Qualified Code(s): I10 - Essential (primary) hypertension Is this a current diagnosis for this admission?: Yes Plan: Continue home regimen (5) Hypothyroidism Qualifiers: Hypothyroidism type: postoperative Qualified Code(s): E89.0 - Postprocedural hypothyroidism Is this a current diagnosis for this admission?: Yes Plan: Secondary to bilateral thyroidectomy due to goiter. Continue Synthroid. (6) Morbid obesity with BMI of 45.0-49.9, adult Is this a current diagnosis for this admission?: Yes Plan: Will benefit from weight loss and appropriate dieting. Likely contributing to some of patient's comorbidities. (7) ZULEIKA (obstructive sleep apnea) Is this a current diagnosis for this admission?: Yes Plan: Nocturnal CPAP - Time Time Spent with patient: 35 or more minutes
[2019-06-19 21:00] LABS: APPEARANCE,URINE SLIGHTLY-CLOUDY; BILIRUBIN,URINE NEGATIVE (NEGATIVE); COLOR,URINE YELLOW; GLUCOSE, URINE NEGATIVE (NEGATIVE); KETONES,URINE NEGATIVE (NEGATIVE); LEUKOCYTE ESTERASE,URINE NEGATIVE (NEGATIVE); NITRITE,URINE NEGATIVE (NEGATIVE); PROTEIN,URINE NEGATIVE (NEGATIVE); URINE SPECIFIC GRAVITY 1.015; UROBILINOGEN,URINE NEGATIVE mg/dL (<2.0)
[2019-06-19] MEDS: IPRATROPIUM/ALBUTEROL 0.5-2.5 MG/3 ML AMPUL NEB SCH (21:18)
[2019-06-19] MEDS ORDERED: AZITHROMYCIN 500 MG in DEXTROSE 5%-WATER 250 ML IV SCH (22:00)
[2019-06-19] MEDS: METHYLPREDNISOLONE INJ 40 MG/1 ML SDV IV SCH (22:23)
[2019-06-19] MEDS: GABAPENTIN 300 MG CAPSULE PO SCH (22:23)
[2019-06-19] MEDS: ATORVASTATIN CALCIUM 40 MG TABLET PO SCH (22:23)
[2019-06-19] MEDS: COLCHICINE 0.6 MG TABLET PO SCH (22:23)
[2019-06-19] MEDS: PROBENECID 500 MG TABLET PO SCH (22:23)
[2019-06-19] MEDS: INSULIN LISPRO 100 UNIT/ML 3 ML VIAL SUBCUT SCH (22:24)
[2019-06-20] MEDS: IPRATROPIUM/ALBUTEROL 0.5-2.5 MG/3 ML AMPUL NEB SCH ×4 (02:26→20:10)
[2019-06-20] MEDS: PANTOPRAZOLE SODIUM 40 MG TABLET.DR PO SCH (05:04)
[2019-06-20] MEDS: GABAPENTIN 300 MG CAPSULE PO SCH ×3 (05:04→21:32)
[2019-06-20] MEDS: METHYLPREDNISOLONE INJ 40 MG/1 ML SDV IV SCH ×3 (05:04→21:31)
[2019-06-20 05:47] LABS: ABSOLUTE LYMPHOCYTES (AUTO) 1.1 10^3/uL (0.5-4.7); ABSOLUTE MONOCYTES (AUTO) 0.2 10^3/uL (0.1-1.4); ABSOLUTE NEUT (AUTO) 4.8 10^3/uL (1.7-8.2); BASOPHILS % (AUTO) 0.2 % (0-2); HEMATOCRIT 37.3 % (36.0-47.0); HEMOGLOBIN 12.2 g/dL (12.0-15.5); LYMPHOCYTES % (AUTO) 18.3 % (13-45); MEAN CORPUSCULAR HEMOGLOBIN 28.3 pg (27.0-33.4); MEAN CORPUSCULAR HGB CONC 32.6 g/dL (32.0-36.0); MEAN CORPUSCULAR VOLUME 87 fl (80-97); PLATELET COUNT 262 10^3/uL (150-450); RED CELL DISTRIBUTION WIDTH 17.3 % (11.5-14.0); SEGMENTED NEUTROPHILS % (AUTO) 77.5 % (42-78); TOTAL CELLS COUNTED % (AUTO) 100 %; WHITE BLOOD COUNT 6.2 10^3/uL (4.0-10.5)
[2019-06-20 06:18] LABS: ANION GAP 13 (5-19); BLOOD UREA NITROGEN 33 mg/dL (7-20); CARBON DIOXIDE 29 mmol/L (22-30); CHLORIDE 100 mmol/L (98-107); GLUCOSE 248 mg/dL (75-110); POTASSIUM 4.2 mmol/L (3.6-5.0)
[2019-06-20 06:30] LABS: CALCIUM 6.7 mg/dL (8.4-10.2)
[2019-06-20] MEDS: CALCIUM GLUCONATE 1 GM/NS 50 ML RTU IV SCH ×2 (06:46→08:58)
[2019-06-20] MEDS: INSULIN LISPRO 100 UNIT/ML 3 ML VIAL SUBCUT SCH ×4 (08:21→21:32)
[2019-06-20] MEDS: CALCIUM ACETATE 667 MG CAPSULE PO SCH ×3 (08:22→16:38)
[2019-06-20] MEDS: METFORMIN HCL 500 MG TABLET PO SCH ×2 (08:22→16:38)
[2019-06-20] MEDS: GLIPIZIDE 5 MG TABLET PO SCH ×2 (08:22→16:38)
[2019-06-20] MEDS ORDERED: PROBENECID PO SCH (10:00)
[2019-06-20] MEDS ORDERED: COLCHICINE PO SCH (10:00)
--- NOTE | 2019-06-20 10:29 | PDOC PROGRESS REPORT ---
Subjective Progress Note for:: 06/20/19 Subjective:: Patient's breathing is better today. She denies any chest pain. She states that she would like to get up and attempt to walk around today. Reason For Visit: ASTHMA EXACERBATION Physical Exam Vital Signs: Temp Pulse Resp BP Pulse Ox 98.5 F 70 14 122/54 L 93 06/20/19 07:23 06/20/19 08:15 06/20/19 08:15 06/20/19 07:23 06/20/19 08:15 Intake & Output 06/19/19 06/20/19 06/21/19 06:59 06:59 06:59 Intake Total 823 Balance 823 Weight 111.4 kg General appearance: PRESENT: no acute distress, cooperative Neck exam: ABSENT: JVD Respiratory exam: PRESENT: symmetrical, unlabored, wheezes - Improved from yesterday. ABSENT: crackles, tachypnea Cardiovascular exam: PRESENT: RRR, +S1, +S2. ABSENT: tachycardia GI/Abdominal exam: PRESENT: normal bowel sounds, soft. ABSENT: rebound, rigid, tenderness Neurological exam: PRESENT: alert, awake, oriented to person, oriented to place, oriented to time, oriented to situation Results Laboratory Results: 06/20/19 05:26 06/20/19 05:26 06/19/19 06/19/19 06/19/19 14:51 14:51 20:20 WBC 9.9 RBC 4.58 Hgb 13.0 Hct 40.1 MCV 88 MCH 28.3 MCHC 32.3 RDW 17.6 H Plt Count 295 Seg Neutrophils % 71.4 Sodium 142.4 Potassium 4.0 Chloride 98 Carbon Dioxide 31 H Anion Gap 13 BUN 27 H Creatinine 1.10 Est GFR ( Amer) > 60 Glucose 214 H Calcium 7.4 L Magnesium Total Bilirubin 0.8 AST 124 H Alkaline Phosphatase 133 H Total Protein 8.7 H Albumin 4.4 Urine Color YELLOW Urine Appearance SLIGHTLY-CLOUDY Urine pH 5.0 Ur Specific [place] 1.015 Urine Protein NEGATIVE Urine Glucose (UA) NEGATIVE Urine Ketones NEGATIVE Urine Blood NEGATIVE Urine Nitrite NEGATIVE Ur Leukocyte Esterase NEGATIVE Urine WBC (Auto) 2 Urine RBC (Auto) 1 06/20/19 06/20/19 05:26 05:26 WBC 6.2 RBC 4.30 Hgb 12.2 Hct 37.3 MCV 87 MCH 28.3 MCHC 32.6 RDW 17.3 H Plt Count 262 Seg Neutrophils % 77.5 Sodium 142.4 Potassium 4.2 Chloride 100 Carbon Dioxide 29 Anion Gap 13 BUN 33 H Creatinine 0.92 Est GFR ( Amer) > 60 Glucose 248 H Calcium 6.7 L* Magnesium 2.1 Total Bilirubin AST Alkaline Phosphatase Total Protein Albumin Urine Color Urine Appearance Urine pH Ur Specific [place] Urine Protein Urine Glucose (UA) Urine Ketones Urine Blood Urine Nitrite Ur Leukocyte Esterase Urine WBC (Auto) Urine RBC (Auto) 06/19/19 14:51 NT-Pro-B Natriuret Pep 65 Impressions: Chest X-Ray 06/19/19 15:25 IMPRESSION: Borderline heart size with pulmonary vascular congestion but no chip pulmonary edema. Assessment and Plan - Diagnosis (1) Acute asthma exacerbation Qualifiers: Asthma severity: severe Asthma persistence: persistent Qualified Code(s): J45.51 - Severe persistent asthma with (acute) exacerbation Is this a current diagnosis for this admission?: Yes Plan: Chest x-ray shows no evidence of pneumonia. BNP wnl. Active wheezing. Frequent nebs, Solu-Medrol, azithromycin. Will start on prednisone tomorrow (2) Acute respiratory failure with hypoxia Is this a current diagnosis for this admission?: Yes Plan: Secondary to asthma exacerbation. We will try to wean off oxygen today and ambulate patient measuring pulse oximetry. 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 Continue metformin, glipizide. Sliding scale insulin and Accu- Cheks. (4) Hypertension Qualifiers: Hypertension type: essential hypertension Qualified Code(s): I10 - Essenti al (primary) hypertension Is this a current diagnosis for this admission?: Yes Plan: Continue home regimen (5) Hypothyroidism Qualifiers: Hypothyroidism type: postoperative Qualified Code(s): E89.0 - Postprocedural hypothyroidism Is this a current diagnosis for this admission?: Yes Plan: Secondary to bilateral thyroidectomy due to goiter. Continue Synthroid. (6) Morbid obesity with BMI of 45.0-49.9, adult Is this a current diagnosis for this admission?: Yes Plan: Will benefit from weight loss and appropriate dieting. Likely contributing to some of patient's comorbidities. (7) ZULEIKA (obstructive sleep apnea) Is this a current diagnosis for this admission?: Yes Plan: Nocturnal CPAP (8) Hypocalcemia Is this a current diagnosis for this admission?: Yes Plan: Patient has history of hyperparathyroidism secondary to concomitant parathyroidectomy during thyroidectomy. Giving calcium gluconate this morning. Will continue patient's oral calcium supplements. Monitor calcium level in the morning. - Time Time Spent with patient: Less than 15 minutes
[2019-06-20] MEDS: PROBENECID 500 MG TABLET PO SCH ×2 (10:39→21:33)
[2019-06-20] MEDS: SPIRONOLACTONE 25 MG TABLET PO SCH (10:39)
[2019-06-20] MEDS: LISINOPRIL 10 MG TABLET PO SCH (10:40)
[2019-06-20] MEDS: COLCHICINE 0.6 MG TABLET PO SCH ×2 (10:40→21:33)
[2019-06-20] MEDS: AMLODIPINE BESYLATE 10 MG TABLET PO SCH (10:40)
[2019-06-20] MEDS: FLUTICASONE/VILANTEROL 200-25 MCG/DOSE IH SCH (10:40)
[2019-06-20] MEDS: ALLOPURINOL 300 MG TABLET PO SCH (10:40)
[2019-06-20] MEDS: ENOXAPARIN SODIUM INJ 40 MG/0.4 ML DISP.SYRIN SUBCUT SCH (10:41)
[2019-06-20] MEDS ORDERED: LEVOTHYROXINE SODIUM 0.15 MG TABLET PO ONE (11:00)
[2019-06-20] MEDS: CALCIUM CARBONATE 600 MG TABLET PO SCH ×2 (12:51→18:10)
[2019-06-20] MEDS: TRAMADOL HCL 50 MG TABLET PO PRN (12:58)
[2019-06-20 16:16] LABS: CALCIUM 7.6 mg/dL (8.4-10.2)
[2019-06-20] MEDS: ATORVASTATIN CALCIUM 40 MG TABLET PO SCH (21:32)
[2019-06-20] MEDS ORDERED: AZITHROMYCIN 250 MG TABLET PO SCH (22:00)
[2019-06-21] MEDS: IPRATROPIUM/ALBUTEROL 0.5-2.5 MG/3 ML AMPUL NEB SCH ×3 (01:46→14:33)
[2019-06-21] MEDS: GABAPENTIN 300 MG CAPSULE PO SCH ×2 (05:10→14:19)
[2019-06-21] MEDS: TRAMADOL HCL 50 MG TABLET PO PRN (05:10)
[2019-06-21] MEDS: METHYLPREDNISOLONE INJ 40 MG/1 ML SDV IV SCH ×2 (05:11→14:23)
[2019-06-21] MEDS: PANTOPRAZOLE SODIUM 40 MG TABLET.DR PO SCH (05:11)
[2019-06-21 05:22] LABS: ALBUMIN 3.7 g/dL (3.5-5.0); ALKALINE PHOSPHATASE 100 U/L (38-126); ANION GAP 14 (5-19); ASPARTATE AMINO TRANSFERASE 44 U/L (14-36); BILIRUBIN,DIRECT 0.4 mg/dL (0.0-0.4); BILIRUBIN,TOTAL 0.6 mg/dL (0.2-1.3); BLOOD UREA NITROGEN 31 mg/dL (7-20); CARBON DIOXIDE 27 mmol/L (22-30); CHLORIDE 98 mmol/L (98-107); GLUCOSE 248 mg/dL (75-110); POTASSIUM 4.7 mmol/L (3.6-5.0); TOTAL PROTEIN 6.8 g/dL (6.3-8.2)
[2019-06-21 05:39] LABS: CALCIUM 6.9 mg/dL (8.4-10.2)
[2019-06-21] MEDS ORDERED: LEVOTHYROXINE SODIUM 0.15 MG TABLET PO SCH (06:00)
[2019-06-21] MEDS: GLIPIZIDE 5 MG TABLET PO SCH (08:05)
[2019-06-21] MEDS: INSULIN LISPRO 100 UNIT/ML 3 ML VIAL SUBCUT SCH ×2 (08:05→11:34)
[2019-06-21] MEDS: CALCIUM ACETATE 667 MG CAPSULE PO SCH ×2 (08:05→11:34)
[2019-06-21] MEDS: METFORMIN HCL 500 MG TABLET PO SCH (08:05)
[2019-06-21] MEDS ORDERED: CALCIUM GLUCONATE 1000 MG/10 ML INJ IV ONE (08:14)
[2019-06-21] MEDS: CALCIUM CARBONATE 600 MG TABLET PO SCH (09:35)
[2019-06-21] MEDS: AMLODIPINE BESYLATE 10 MG TABLET PO SCH (09:36)
[2019-06-21] MEDS: ENOXAPARIN SODIUM INJ 40 MG/0.4 ML DISP.SYRIN SUBCUT SCH (09:36)
[2019-06-21] MEDS: LISINOPRIL 10 MG TABLET PO SCH (09:36)
[2019-06-21] MEDS: SPIRONOLACTONE 25 MG TABLET PO SCH (09:36)
[2019-06-21] MEDS: PROBENECID 500 MG TABLET PO SCH (09:37)
[2019-06-21] MEDS: FLUTICASONE/VILANTEROL 200-25 MCG/DOSE IH SCH (09:37)
[2019-06-21] MEDS: ALLOPURINOL 300 MG TABLET PO SCH (09:38)
[2019-06-21] MEDS: CALCIUM GLUCONATE 1 GM/NS 50 ML RTU IV SCH ×2 (09:38→11:34)
[2019-06-21] MEDS: COLCHICINE 0.6 MG TABLET PO SCH (09:38)
[2019-06-21 11:44] VITALS: BP 131/56
--- NOTE | 2019-06-21 12:18 | PDOC DISCHARGE SUMMARY ---
Impression - Admit/DC Date/PCP Admission Date/Primary Care Provider: 06/19/19 18:50 BISHOP WILEY MD Discharge Date: 06/21/19 - Discharge Diagnosis (1) Acute asthma exacerbation Is this a current diagnosis for this admission?: Yes (2) Acute respiratory failure with hypoxia Is this a current diagnosis for this admission?: Yes (3) DM type 2 (diabetes mellitus, type 2) Is this a current diagnosis for this admission?: Yes (4) Hypertension Is this a current diagnosis for this admission?: Yes (5) Hypothyroidism Is this a current diagnosis for this admission?: Yes (6) Morbid obesity with BMI of 45.0-49.9, adult Is this a current diagnosis for this admission?: Yes (7) ZULEIKA (obstructive sleep apnea) Is this a current diagnosis for this admission?: Yes (8) Hypocalcemia Is this a current diagnosis for this admission?: Yes - Additional Information Resuscitation Status: Full Code Referrals: BISHOP WILEY MD [Primary Care Provider] - Prescriptions: Prednisone [Deltasone 20 mg Tablet] 40 mg PO DAILY 3 Days #6 tablet Fluticasone Propionate [Flonase Nasal [place] 50 Mcg/[place] 16 gm] 1 spray NASL Q12 #1 inhaler Azithromycin [Zithromax 250 mg Tablet] 250 mg PO DAILY #3 tablet Home Medications: Budesonide/Formoterol Fumarate [Symbicort HFA 80-4.5 mcg Inhaler 6.9 gm] 2 puff IH BID 07/24/18 Calcium Acetate [Phoslo 667 mg Capsule] 1,334 mg PO TID 07/24/18 Gabapentin [Neurontin 300 mg Capsule] 300 mg PO Q8 07/24/18 Lisinopril [Prinivil 40 mg Tablet] 40 mg PO DAILY 07/24/18 Metoprolol Tartrate [Lopressor] 50 mg PO Q12 07/24/18 Probenecid/Colchicine [Probenecid-Colchicine Tablet] 1 each PO BID 07/24/18 Tramadol HCl [Ultram] 50 mg PO DAILYP PRN 07/24/18 Azithromycin [Zithromax 250 mg Tablet] 250 mg PO DAILY #3 tablet 06/21/19 Fluticasone Propionate [Flonase Nasal [place] 50 Mcg/[place] 16 gm] 1 spray NASL Q12 #1 inhaler 06/21/19 Prednisone [Deltasone 20 mg Tablet] 40 mg PO DAILY 3 Days #6 tablet 06/21/19 History of Present Illiness History of Present Illness: PORTER SCHROEDER is a 59 year old female with a history of type 2 diabetes mellitus, asthma, hypertension, angina, who presents to the hospital with complaints of shortness of breath going on for the past few days. Symptoms started on last week. Patient denies any sick exposures. Patient denies any fevers. She does have increased cough with not much sputum pro duction. Patient denies any chest pain. Denies any nausea or vomiting. Patient also denies any travels recently. Admits to myalgias. States that her was sick but became sick much after she did. In the ER patient was given some nebulizer treatments without any significant improvement in her breathing. Also received magnesium sulfate. Subsequently referred to hospitalist service for admission. Hospital Course Hospital Course: Patient was admitted for treatment of acute asthma exacerbation. Chest x-ray was unremarkable. Patient was notably wheezing and tachypneic at the time of presentation. Patient received breathing treatments with frequent nebulizers and was placed on Solu-Medrol with significant improvement of her symptoms. Today patient has only very minimal wheezing and has been able to ambulate without difficulty. Patient's acute hypoxic respiratory failure which she had o n presentation currently has resolved and patient has been tolerating on room air for the past day. Patient states that she has her nebulizer albuterol solutions at home and has been instructed to use them frequently for the next few days and then return to using on an as-needed basis. Patient is being discharged with prednisone and azithromycin for 3 days. She is also been given a Flonase nasal spray to help with seasonal allergies which seem to be contributing to patient's asthma exacerbations. Patient states that she uses Symbicort at home for asthma. Patient was also notably hypocalcemic due to hypothyroidism from her bilateral thyroidectomy for which she states that she takes several tablets of Tums about 4 times a day along with calcium acetate and has been managed by Dr. Wiley in the outpatient setting. Patient's hypocalcemia has been adequately repleted. She will be following up with her primary care provider for further care. Physical Exam Vital Signs: Temp Pulse Resp BP Pulse Ox 97.9 F 97 18 131/56 H 94 06/21/19 11:43 06/21/19 11:43 06/21/19 11:43 06/21/19 11:43 06/21/19 11:43 Intake & Output 06/20/19 06/21/19 06/22/19 06:59 06:59 06:59 Intake Total 823 1280 Balance 823 1280 Weight 111.4 kg 114.6 kg General appearance: PRESENT: no acute distress, cooperative Neck exam: ABSENT: JVD Respiratory exam: PRESENT: symmetrical, unlabored, wheezes - Very mild and significantly improved as compared to yesterday. ABSENT: tachypnea Cardiovascular exam: PRESENT: RRR, +S1, +S2. ABSENT: tachycardia Neurological exam: PRESENT: alert, awake, oriented to person, oriented to place, oriented to time Psychiatric exam: PRESENT: anxious. ABSENT: agitated Focused psych exam: ABSENT: pressured speech Skin exam: ABSENT: jaundice Results Laboratory Results: WBC 6.2 10^3/uL (4.0-10.5) 06/20/19 05:26 RBC 4.30 10^6/uL (3.72-5.28) 06/20/19 05:26 Hgb 12.2 g/dL (12.0-15.5) 06/20/19 05:26 Hct 37.3 % (36.0-47.0) 06/20/19 05:26 MCV 87 fl (80-97) 06/20/19 05:26 MCH 28.3 pg (27.0-33.4) 06/20/19 05:26 MCHC 32.6 g/dL (32.0-36.0) 06/20/19 05:26 RDW 17.3 % (11.5-14.0) H 06/20/19 05:26 Plt Count 262 10^3/uL (150-450) 06/20/19 05:26 Lymph % (Auto) 18.3 % (13-45) 06/20/19 05:26 [place] % (Auto) 4.0 % (3-13) 06/20/19 05:26 Eos % (Auto) 0.0 % (0-6) 06/20/19 05:26 Baso % (Auto) 0.2 % (0-2) 06/20/19 05:26 Absolute Neuts (auto) 4.8 10^3/uL (1.7-8.2) 06/20/19 05:26 Absolute Lymphs (auto) 1.1 10^3/uL (0.5-4.7) 06/20/19 05:26 Absolute Monos (auto) 0.2 10^3/uL (0.1-1.4) 06/20/19 05:26 Absolute Eos (auto) 0.0 10^3/uL (0.0-0.6) 06/20/19 05:26 Absolute Basos (auto) 0.0 10^3/uL (0.0-0.2) 06/20/19 05:26 Seg Neutrophils % 77.5 % (42-78) 06/20/19 05:26 Sodium 138.7 mmol/L (137-145) 06/21/19 04:24 Potassium 4.7 mmol/L (3.6-5.0) 06/21/19 04:24 Chloride 98 mmol/L (98-107) 06/21/19 04:24 Carbon Dioxide 27 mmol/L (22-30) 06/21/19 04:24 Anion Gap 14 (5-19) 06/21/19 04:24 BUN 31 mg/dL (7-20) H 06/21/19 04:24 Creatinine 1.01 mg/dL (0.52-1.25) 06/21/19 04:24 Est GFR ( Amer) > 60 (>60) 06/21/19 04:24 Est GFR (MDRD) Non-Af 56 (>60) L 06/21/19 04:24 Glucose 248 mg/dL (75-110) H 06/21/19 04:24 POC Glucose 280 mg/dL (70-110) H 06/21/19 11:03 Calcium 6.9 mg/dL (8.4-10.2) L* 06/21/19 04:24 Magnesium 2.1 mg/dL (1.6-2.3) 06/20/19 05:26 Total Bilirubin 0.6 mg/dL (0.2-1.3) 06/21/19 04:24 Direct Bilirubin 0.4 mg/dL (0.0-0.4) 06/21/19 04:24 Neonat Total Bilirubin Not Reportable 06/21/19 04:24 Neonat Direct Bilirubin Not Reportable 06/21/19 04:24 Neonat Indirect Bili Not Reportable 06/21/19 04:24 AST 44 U/L (14-36) H 06/21/19 04:24 ALT 55 U/L (<35) H 06/21/19 04:24 Alkaline Phosphatase 100 U/L (38-126) 06/21/19 04:24 NT-Pro-B Natriuret Pep 65 pg/mL (<125) 06/19/19 14:51 Total Protein 6.8 g/dL (6.3-8.2) 06/21/19 04:24 Albumin 3.7 g/dL (3.5-5.0) 06/21/19 04:24 Urine Color YELLOW 06/19/19 20:20 Urine Appearance SLIGHTLY-CLOUDY 06/19/19 20:20 Urine pH 5.0 (5.0-9.0) 06/19/19 20:20 Ur Specific [place] 1.015 06/19/19 20:20 Urine Protein NEGATIVE mg/dL (NEGATIVE) 06/19/19 20:20 Urine Glucose (UA) NEGATIVE mg/dL (NEGATIVE) 06/19/19 20:20 Urine Ketones NEGATIVE mg/dL (NEGATIVE) 06/19/19 20:20 Urine Blood NEGATIVE (NEGATIVE) 06/19/19 20:20 Urine Nitrite NEGATIVE (NEGATIVE) 06/19/19 20:20 Urine Bilirubin NEGATIVE (NEGATIVE) 06/19/19 20:20 Urine Urobilinogen NEGATIVE mg/dL (<2.0) 06/19/19 20:20 Ur Leukocyte Esterase NEGATIVE (NEGATIVE) 06/19/19 20:20 Urine WBC (Auto) 2 /HPF 06/19/19 20:20 Urine RBC (Auto) 1 /HPF 06/19/19 20:20 Urine Bacteria (Auto) TRACE /HPF 06/19/19 20:20 Squamous Epi Cells Auto 5 /HPF 06/19/19 20:20 Urine Mucus (Auto) RARE /LPF 06/19/19 20:20 Urine Ascorbic Acid NEGATIVE (NEGATIVE) 06/19/19 20:20 06/19/19 14:51 NT-Pro-B Natriuret Pep 65 Impressions: Chest X-Ray 06/19/19 15:25 IMPRESSION: Borderline heart size with pulmonary vascular congestion but no chip pulmonary edema. Plan Time Spent: Greater than 30 Minutes Stroke Is this a Stroke Patient?: No Acute Heart Failure - Is this a Heart Failure Patient?: No
== END 2019-06-21 16:12 | disposition home or self-care (01) | DRG 189 ==
LOC: ER 14:36 → EH 18:50 → OBSVTOIN 18:50 → 4S 20:18
PROVIDERS: ADMIT Internal Medicine; ATTEND Internal Medicine
DX: J96.01 Acute respiratory failure with hypoxia (principal); J44.1 Chronic obstructive pulmonary disease with (acute) exacerbation; J45.51 Severe persistent asthma with (acute) exacerbation; Z68.42 Body mass index [BMI] 45.0-49.9, adult; I25.10 Atherosclerotic heart disease of native coronary artery without angina pectoris; E78.00 Pure hypercholesterolemia, unspecified; I10 Essential (primary) hypertension; I73.9 Peripheral vascular disease, unspecified; E11.8 Type 2 diabetes mellitus with unspecified complications; K21.9 Gastro-esophageal reflux disease without esophagitis; G47.33 Obstructive sleep apnea (adult) (pediatric); E83.51 Hypocalcemia; E89.0 Postprocedural hypothyroidism; F17.210 Nicotine dependence, cigarettes, uncomplicated; E66.01 Morbid (severe) obesity due to excess calories; Z79.84 Long term (current) use of oral hypoglycemic drugs; Z79.51 Long term (current) use of inhaled steroids; Z79.52 Long term (current) use of systemic steroids; Z79.899 Other long term (current) drug therapy
CPT/HCPCS: 36415; 71046; 80048; 80053; 81001; 82040; 82310; 82962; 83735; 83880; 85025; 93005; 93010; 94640; 96365; 96366; 99285; J0610; J0456; J1650; J1815; J2920; J3475; J3490; J7060; J7620

== ENCOUNTER 2019-06-25 08:41 | Emergency (ER) | payer OTHER ==
[2019-06-25] MEDS ORDERED: PREDNISONE 20 MG TABLET PO ONE (09:02)
--- NOTE | 2019-06-25 09:05 | ER Document Report ---
ED Hip Pain/Injury - General Chief Complaint: Hip Pain Stated Complaint: RIGHT HIP PAIN Time Seen by Provider: 06/25/19 08:58 Primary Care Provider: BISHOP WILEY MD [ACTIVE STAFF] - Follow up as needed Notes: CHIEF COMPLAINT: Right hip pain for 2 days HPI: 59-year-old obese female presenting for right hip pain for 2 days no trauma. States it began hurting while she was sitting on the couch. Is taken no medications for her symptoms. Did not call her PCP today for evaluation of symptoms prior to coming to the emergency department. Pain seems to radiate from the low back down through the gluteal region into the lateral aspect of the right leg with movement or walking. No incontinence of urine or bowel. No fever ROS: See HPI - all other systems were reviewed and are otherwise negative Constitutional: no fever GI: no vomiting, no diarrhea, no abdominal pain : no dysuria Integumentary: no rash Allergy: no hives Musculoskeletal: + extremity pain or swelling Neurological: no numbness/tingling MEDICATIONS: I agree with the patient medications as charted by the RN. ALLERGIES: I agree with the allergies as charted by the RN. PAST MEDICAL HISTORY/PAST SURGICAL HISTORY: Reviewed and agree as charted by RN. SOCIAL HISTORY: Reviewed and agree as charted by RN. FAMILY HISTORY: No significant familial comorbid conditions directly related to patient complaint EXAM: Reviewed vital signs as charted by RN. CONSTITUTIONAL: Alert and oriented and responds appropriately to questions. Well-appearing; well-nourished, mild distress secondary to pain HEAD: Normocephalic; atraumatic EYES: PERRL; Conjunctivae clear, sclerae non-icteric ENT: normal nose; no rhinorrhea; moist mucous membranes NECK: Supple without meningismus; non-tender; no cervical lymphadenopathy, no masses CARD: RRR; no murmurs, no clicks, no rubs, no gallops; symmetric distal pulses RESP: Normal chest excursion without splinting or tachypnea; breath sounds clear and equal bilaterally; no wheezes, no rhonchi, no rales ABD/GI: Normal bowel sounds; non-distended; soft, non-tender, no rebound, no guarding; no palpable organomegaly or masses. BACK: The back appears normal and is nontender to palpation directly over the lumbar spine, mild right lateral lumbar muscular tenderness into the right upper gluteal region on palpation, there is no CVA tenderness EXT: Slightly limited range of motion of the right hip and upper leg secondary to complaints of pain. No tenderness to the right knee on palpation or range of motion. Increased discomfort with abduction, abduction of the right leg at the hip. SKIN: Normal color for age and race; warm; dry; good turgor; no acute lesions noted NEURO: Moves all extremities equally; Motor and sensory function intact. No saddle anesthesia on exam. Strength equal 5/5 bilateral lower extremities PSYCH: The patient's mood and manner are appropriate. Grooming and personal hygiene are appropriate. MDM: 59-year-old female with likely sciatic symptoms. Complains of pain through the right lower back gluteal region and hip. Will obtain x-ray given patient's age to evaluate bone structure in the hip. If x-ray negative for acute findings will treat with steroids, short course of pain medication, orthopedic follow-up TRAVEL OUTSIDE OF THE [place] IN LAST 30 DAYS: No - Related Data Allergies/Adverse Reactions: aspirin [Aspirin] Allergy (Severe, Verified 06/25/19 08:53) n and v etodolac [From Lodine] Allergy (Severe, Verified 06/25/19 08:53) Hives oxycodone HCl [From Percocet] Allergy (Severe, Verified 06/25/19 08:53) itching simvastatin [Simvastatin] Allergy (Severe, Verified 06/25/19 08:53) cramping Sulfa (Sulfonamide Antibiotics) Allergy (Severe, Verified 06/25/19 08:53) pain sulfamethoxazole [From Septra] Allergy (Severe, Verified 06/25/19 08:53) pain triamterene [From Maxzide] Allergy (Severe, Verified 06/25/19 08:53) unsure trimethoprim [From Septra] Allergy (Severe, Verified 06/25/19 08:53) pain Past Medical History - Social History Smoking Status: Former Smoker Chew tobacco use (# tins/day): No Frequency of alcohol use: Occasional Drug Abuse: None Family History: Hypertension Patient has suicidal ideation: No Patient has homicidal ideation: No - Past Medical History Cardiac Medical History: Reports: Hx Coronary Artery Disease, Hx Hypercholesterolemia, Hx Hypertension, Hx Peripheral Vascular Disease, Hx Heart Murmur Denies: Hx Atrial Fibrillation, Hx Congestive Heart Failure, Hx Heart Attack, Hx Pulmonary Embolism Pulmonary Medical History: Reports: Hx Asthma, Hx COPD, Hx Pneumonia, Hx Sleep Apnea - cpap Denies: Hx Bronchitis, Hx Respiratory Failure, Hx Tuberculosis Neurological Medical History: Denies: Hx Cerebrovascular Accident, Hx Seizures, Hx Parkinson's Disease Endocrine Medical History: Reports: Hx Diabetes Mellitus Type 2, Hx Hyperthyroidism - goiter. Denies: Hx Graves' Disease, Hx Hypothyroidism Renal/ Medical History: Denies: Hx End Stage Renal Disease, Hx Kidney Stones, Hx Ovarian Cysts, Hx Peritoneal Dialysis, Hx Pelvic Inflammatory Disease Malignancy Medical History: Denies: Hx Breast Cancer, Hx Cervical Cancer, Hx Lung Cancer, Hx Ovarian Cancer GI Medical History: Reports: Hx Gastroesophageal Reflux Disease. Denies: Hx Crohn's Disease, Hx Hiatal Hernia, Hx Irritable Bowel, Hx Liver Failure, Hx Pancreatitis, Hx Ulcer Musculoskeletal Medical History: Reports Hx Arthritis, Denies Hx Fibromyalgia, Denies Hx Multiple Sclerosis, Denies Hx Muscular Dystrophy, Denies Hx Systemic Lupus Erythematosus Psychiatric Medical History: Reports: Hx Depression Denies: Hx Bipolar Disorder, Hx Dementia, Hx Post Traumatic Stress Disorder, Hx Schizophrenia Traumatic Medical History: Reports: Hx Fractures Past Surgical History: Reports: Hx Hysterectomy, Hx Thyroid Surgery. Denies: Hx Appendectomy, Hx Bowel Surgery, Hx Section, Hx Cholecystectomy, Hx Colostomy, Hx Coronary Artery Bypass Graft, Hx Gastric Bypass Surgery, Hx Herniorrhaphy, Hx Mastectomy, Hx Pacemaker, Hx Tonsillectomy, Hx Tubal Ligation - Immunizations Hx Diphtheria, Pertussis, Tetanus Vaccination: Yes Hx Pneumococcal Vaccination: 03/28/10 Physical Exam - Vital signs Vitals: Temp Pulse Resp BP Pulse Ox 98.3 F 84 20 138/81 H 94 06/25/19 08:45 06/25/19 08:45 06/25/19 08:45 06/25/19 08:45 06/25/19 08:45 Course - Re-evaluation Re-evalutation: 06/25/19 11:57 X-ray on my review does not show evidence of fracture. Will discharge home to follow-up with orthopedics - Vital Signs Vital signs: Temp Pulse Resp BP Pulse Ox 98.3 F 84 20 138/81 H 94 06/25/19 08:45 06/25/19 08:45 06/25/19 08:45 06/25/19 08:45 06/25/19 08:45 Discharge - Discharge Clinical Impression: Hip pain, right Sciatica Qualifiers: Laterality: right Qualified Code(s): M54.31 - Sciatica, right side Condition: Stable Disposition: HOME, SELF-CARE Instructions: Sciatica (OM) Additional Instructions: Take the medications as prescribed no driving if taking narcotics for pain. It is very important that you follow this up with both your primary care provider and orthopedics for further evaluation and treatment. There was mild arthritic change noted on your hip x-ray today. Your symptoms suggest a sciatic or back origin. Prescriptions: Prednisone [Deltasone 20 mg Tablet] 2 tab PO DAILY 5 Days #10 tablet Naproxen 500 mg PO BID PRN #14 tablet PRN Reason: Hydrocodone/Acetaminophen [[place] 5-325 mg Tablet] 1 tab PO Q4 PRN #15 tablet PRN Reason: Famotidine [Pepcid 20 mg Tablet] 20 mg PO BID #12 tablet Referrals: BISHOP WILEY MD [ACTIVE STAFF] - Follow up as needed KATIA VALLE DO [ACTIVE STAFF] - Follow up as needed
[2019-06-25] MEDS ORDERED: HYDROCODONE/ACETAMINOPHEN 5-325 MG TABLET PO ONE (09:51)
--- NOTE | 2019-06-25 12:09 | RADIOLOGY REPORT (SQ) ---
EXAM DESCRIPTION: HIP RIGHT AP/LATERAL IMAGES COMPLETED DATE/TIME: 06/25/2019 11:41 am REASON FOR STUDY: pain COMPARISON: None. NUMBER OF VIEWS: Two views. TECHNIQUE: AP pelvis and additional frog-leg view of the right hip. LIMITATIONS: None. FINDINGS: No fracture or dislocation. 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 SI joints are norm al. Vascular calcifications. Prior lower abdominal hernia repair. IMPRESSION: No acute findings. TECHNICAL DOCUMENTATION: JOB ID: [id number] 2010 [email or web address]- All Rights Reserved Reading location - IP/workstation name: [email or web address]
[2019-06-25 12:18] VITALS: BP 143/82
== END 2019-06-25 12:16 | disposition home or self-care (01) ==
LOC: ER 08:41
DX: M25.551 Pain in right hip (principal); M54.31 Sciatica, right side; E11.9 Type 2 diabetes mellitus without complications; I25.10 Atherosclerotic heart disease of native coronary artery without angina pectoris; I10 Essential (primary) hypertension; E78.00 Pure hypercholesterolemia, unspecified; J44.9 Chronic obstructive pulmonary disease, unspecified; Z90.710 Acquired absence of both cervix and uterus; Z88.6 Allergy status to analgesic agent; Z88.2 Allergy status to sulfonamides
CPT/HCPCS: 99283; 73502; J7512

== ENCOUNTER → 2019-10-18 | Outpatient (CLI) | payer OTHER ==
--- NOTE | 2019-10-18 11:03 | WOMENS IMAGING REPORT ---
EXAM DESCRIPTION: BILAT SCREENING MAMMO W/CAD IMAGES COMPLETED DATE/TIME: 10/18/2019 10:10 am REASON FOR STUDY: Z12.31 ENCOUNTER FOR SCREENING MAMMOGRAM FOR MALIGNANT NEOPLASM OF BREAST Z12.31 ENCNTR SCREEN MAMMOGRAM FOR MALIGNANT NEOPLASM OF [place] COMPARISON: 2016 to 2018 EXAM PARAMETERS: Standard craniocaudal and mediolateral oblique views of each breast recorded using digital acquisition. Read with the assistance of CAD. .[facility] - TM Critical Care Cns Version 9.2 LIMITATIONS: None. FINDINGS: No suspicious masses, suspicious calcifications or architectural distortion. No areas of c oncern. IMPRESSION: NEGATIVE MAMMOGRAM. BIRADS 1 BREAST DENSITY: b. There are scattered areas of fibroglandular density. BIRAD: ASSESSMENT: 1 NEGATIVE RECOMMENDATION: ROUTINE SCREENING COMMENT: The patient has been notified of the results by letter per MQSA requirements. Additional no tification policies are in place for contacting patient with suspicious or incomplete findings. Quality ID #[id number]: The [employer] recommends an annual screening mammogram for women aged 40 years or over. This facility utilizes a reminder system to ensure that all patients receive reminder letters, and/or direct phone calls for appointments. This includes reminders for routine scr eening mammograms, diagnostic mammograms, or other Breast Imaging Interventions when appropriate. Th is patient will be placed in the appropriate reminder system. TECHNICAL DOCUMENTATION: FINDING NUMBER: (1) ASSESSMENT: (1) JOB ID: [id number] 2010 [employer]- All Rights Reserved Reading location - IP/workstation name: [email or web address]
== END ==
LOC: WI 09:40
PROVIDERS: ATTEND Internal Medicine
DX: Z12.31 Encounter for screening mammogram for malignant neoplasm of breast (principal)
CPT/HCPCS: 77067